=== PATIENT | female | born 1945 | race Caucasian/White ===

== ENCOUNTER 2016-10-15 17:13 | Emergency (ER) | payer MEDICARE, OTHER ==
[2016-10-15 17:42] VITALS: BP 120/60
--- NOTE | 2016-10-15 18:19 | EDM.PDOC ---
ED HPI LOWER BACK PAIN/INJURY - General Chief Complaint: Back Pain or Injury Stated Complaint: BACK PAIN Time Seen by Provider: 10/15/16 17:46 Source of Information: Reports: Patient, Family History Limitations: Reports: Other (under the influence of pain medications) - History of Present Illness INITIAL COMMENTS - FREE TEXT/NARRATIVE: 71 y/o female who presents to the [facility] complaining of lower back pain with radiation into the flanks and left hip. Patient is status post fusion of L4 and L5 October 02, 2016. She is currently wearing a lumbosacral brace. Today developed severe pain to the lower back to which radiated into her left and right/left flank. She does have some tenderness into her suprapubic region as well. She's been administered Tylenol and Tylenol #3 with no relief. She's also had some Percocet and baclofen prior to arrival as well. This did not help either. She resides at [facility] for therapy. She's been there for approximately 8 days and has been receiving OT and PT every day other than Sunday. This pain to her lower back has been present ever since surgery. She does state the discomfort waxes and wanes in intensity depending on the day. She denies any recent falls. She denies fever, chest pain, shortness of breath , diarrhea, dysuria, numbness/ tingling to lower extremities, incontinence urine stool, inability to weight-bear, or any additional complaints. Pain currently is moderate to severe. She has a history constipation but has been on Colace and MiraLax with no issues present. She is able to get up,weight-bear , and ambulate a few steps with assistance. Family states patient has been lying in bed more over the past few days. Past medical history atrial fibrillation chronic anticoagulated with warfarin, hypothyroidism, type 2 diabetes, restless leg syndrome, heart disease, GERD, COPD, hypertension, hypokalemia, insomnia Current medications: See List. Timing/Duration: Reports: Constant, Waxing/waning Location: Reports: lower Quality: Reports: Ache, Sharp, Throbbing Severity: severe Improves with: Reports: Rest Worsens with: Reports: Movement Context: Reports: other Associated Symptoms: Reports: Difficulty walking. 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) (See HPI) - Related Data Allergies/ADRs: Allergies Allergy/AdvReac Type Severity Reaction Status Date / Time metronidazole [From Flagyl] Allergy Cannot Verified 10/15/16 17:35 Remember promethazine HCl Allergy Cannot Verified 10/15/16 17:35 [From Phenergan] Remember cephalexin AdvReac Diarrhea Verified 10/15/16 17:35 hydrocodone AdvReac Nausea and Verified 10/15/16 17:35 Vomiting rosuvastatin calcium AdvReac Muscle Verified 10/15/16 17:35 [From Crestor] Aches tramadol AdvReac Drowsiness Verified 10/15/16 17:35 Home Meds: Home Meds Furosemide [Lasix] 40 mg PO DAILY 09/03/14 [History] Pantoprazole Sodium 40 mg PO DAILY 09/03/14 [History] Sertraline HCl 100 mg PO DAILY 09/03/14 [History] Pravastatin [Pravachol] 40 mg PO DAILY 03/07/15 [History] Carbidopa/Levodopa [Carbidopa-Levo 10-100 mg Odt] 1 tab PO BID 03/14/15 [History ] Acetaminophen [Tylenol Extra Strength] 1 tab PO DAILY PRN 05/23/16 [History] Albuterol [Proventil HFA] 1 puff INH BID 05/23/16 [History] Calcium Carbonate/Vitamin D3 [Calcium 600 + Vit D 400 Softgl] 1 cap PO DAILY [History] Carvedilol [Carvedilol] 1 tab PO BID 05/23/16 [History] Fluticasone Propionate [Flonase] 1 spray LIONEL DAILY 05/23/16 [History] Insulin Aspart [Novolog Flexpen] 1 dose SQ ASDIRECTED 05/23/16 [History] Isosorbide Mononitrate [Imdur] 1 tab PO DAILY 05/23/16 [History] Latanoprost [Latanoprost] 1 drop EYEBOTH BEDTIME 05/23/16 [History] Levothyroxine [Synthroid] 1 tab PO DAILY 05/23/16 [History] Warfarin [Coumadin] 1 tab PO ASDIRECTED 05/23/16 [History] Acetaminophen 1,000 mg PO BID 10/15/16 [History] Acetaminophen/oxyCODONE [Percocet 325-5 MG] 1 tab PO QID PRN 10/15/16 [History] Azithromycin [Zithromax] 250 mg PO DAILY 10/15/16 [History] Baclofen 10 mg PO TID PRN 10/15/16 [History] Cyanocobalamin (Vitamin B-12) [B-12] 1 tab PO DAILY 10/15/16 [History] Docusate Sodium [Colace] 1 cap PO BID 10/15/16 [History] Polyethylene Glycol 3350 [MiraLAX] 1 dose PO DAILY PRN 10/15/16 [History] Pramipexole [Mirapex] 0.25 mg PO BEDTIME 10/15/16 [History] Warfarin [Coumadin] 4 mg PO ASDIRECTED 10/15/16 [History] Past Medical History Cardiovascular History: Reports: Afib, CAD, Heart Failure, High cholesterol, Pacemaker, PTCA Other Cardiovascular History: Pace maker and 2 stents Respiratory History: Reports: Asthma, Sleep apnea Other Respiratory History: Wears C-pap at night Gastrointestinal History: Reports: GERD Other Gastrointestinal History: Patient has gallstones Other Musculoskeletal History: bulging disk Other Neuro History: restless leg syndrome Endocrine/Metabolic History: Reports: Diabetes, type II Other Dermatologic History: HX of yeast infections - Past Surgical History Cardiovascular Surgical History: Reports: Pacer GI Surgical History: Reports: Colonoscopy, EGD, Hernia repair/other, Ela fundoplication Musculoskeletal Surgical History: Reports: Other (see below) Other Musculoskeletal Surgeries/Procedures:: Pola to left femur from fracture in early 2014. Back Surgery for spinal stenosis on 10/02/16. Social & Family History - Tobacco Use Smoking Status *Q: Never Smoker Second Hand Smoke Exposure: No - Caffeine Use Caffeine Use: Reports: Coffee - Alcohol Use Days Per Week of Alcohol Use: 0 - Recreational Drug Use Recreational Drug Use: No - Living Situation & Occupation Living situation: Reports: Occupation: unemployed ED ROS GENERAL - Review of Systems Review Of Systems: See Below Constitutional: Reports: no symptoms Respiratory: Reports: No Symptoms Cardiovascular: Reports: No symptoms GI/Abdominal: Reports: Abdominal pain, Constipation. Denies: Bloody stool, Diarrhea, Decreased appetite, Hematemesis, Nausea, Vomiting : Reports: no symptoms Musculoskeletal: Reports: no symptoms Neurological: Reports: Difficulty Walking. Denies: Numbness, Pre-Existing Deficit, Tingling ED EXAM,LOWER BACK PAIN/INJURY - Physical Exam Exam: See Below Exam Limited By: Other General Appearance: alert, WD/WN, other (under the influence of narcotic medications) Eye Exam: bilateral eye: PERRL Ears: hearing grossly normal Nose: normal inspection Throat/Mouth: Normal inspection, Normal oropharynx, Normal voice, No airway compromise Head: atraumatic, normocephalic Neck: normal inspection, supple, non-tender, full range of motion Respiratory/Chest: no respiratory distress, lungs clear, normal breath sounds, no accessory muscle use, chest non-tender Cardiovascular: normal peripheral pulses, irregularly irregular GI/Abdominal: normal bowel sounds, soft, non tender, no organomegaly, no distention Back Exam: paraspinal tenderness, vertebral tenderness, other (lower back incision with no onesimo/sutures/steristrips present. no erythema, swelling, increased warmth, or drainage noted. incision is intact. ) Extremities: normal inspection, normal range of motion (2nd to back pain), normal capillary refill, limited range of motion, other (tenderness to the left hip) Neurological: alert, normal mood/affect, normal dorsiflexion, CN II-XII intact, normal plantar flexion, no motor/sensory deficits, oriented x 3, difficulty walking (needs assistance to ambulate. is able to weight beara and walk with assistance) Psychiatric: normal affect, normal mood Skin Exam: Warm, Dry, Intact, Normal color Course - Vital Signs Last Recorded V/S: Last Vital Signs Temp 98.1 F 10/15/16 17:35 Pulse 70 10/15/16 17:35 Resp 16 10/15/16 17:35 BP 120/60 10/15/16 17:35 Pulse Ox 92 L 10/15/16 17:35 - Orders/Labs/Meds Labs: Laboratory Tests 10/15/16 Range/Units 20:00 Urine Color Light yellow (Yellow) Urine Appearance Clear (Clear) Urine pH 6.5 (5.0-8.0) Ur Specific [place] 1.010 (1.005-1.030) Urine Protein Negative (Negative) Urine Glucose (UA) Negative (Negative) Urine Ketones Negative (Negative) Urine Occult Blood Negative (Negative) Urine Nitrite Negative (Negative) Urine Bilirubin Negative (Negative) Urine Urobilinogen 0.2 (0.2-1.0) Ur Leukocyte Esterase Negative (Negative) Urine RBC Not seen (0-5) /hpf Urine WBC 0-5 (0-5) /hpf Ur Epithelial Cells Not Reportable Ur Squamous Epith Cells 10-20 H (0-5) /hpf Urine Bacteria Not seen (FEW) /hpf Urine Mucus Not seen (FEW) /hpf - Re-Assessments/Exams Free Text/Narrative Re-Assessment/Exam: 10/15/16 18:17 Ordered x-ray of the left hip and and will obtain a UA. X-ray of the left hip did not reveal any acute bony abnormalities. Surgical hardware within the femur/hip present. Patient was able to get up to the commode and back to bed with assistance with minimal difficulties. 10/15/16 20:19 UA results were delayed since the urine was not sent. Results are pending. UA was negative. Reassessment, patient sitting up in the wheelchair much more alert stating pain is minimal at this time. I do believe patient was overmedicated with pain medications and muscle relaxers causing her to be more sedated and lay in bed more than she should during the day. I reiterated with the family and patient that she needs to get up and move as much as possible to increase her strength. I stated the more she lays in bed longer her rehabilitation will take. Patient in the family are aware of this and understand and agree with plan. Will discharge patient home with instructions as documented. Departure - Departure Time of Disposition: 23:14 Disposition: Home, Self-Care 01 Clinical Impression: Previous back surgery, Back pain with left-sided radiculopathy Instructions: Back Pain, Adult, [id number], Pain Medicine Instructions, Easy- to-Read Referrals: Donnie Isbell MD [Primary Care Provider] - Forms: ED Department Discharge Additional Instructions: As discussed x-ray of the left hip was negative for acute bony abnormalities. UA was negative. Pain referred to hip and left abdomen is referred pain from her back. Their was no pain of her abdomen with palpation. Incision site from back surgery looks really good with no concerns for infection. Patient presented to the E.D. with narcotic medications on board. Thus no additional pain medications were given. In addition she with assistance did move exceptionally well. Patient has to get up and walk multiple times throughout the course of the day. You cannot stay in bed and rest. Please continue with OT /PT. See your PCP this coming week for reevaluation as needed. If pain to back persist or worsens suggest seeing your neurosurgeon. Return to the E.D. for any new or worsening symptoms.
--- NOTE | 2016-10-16 08:21 | CR ---
Left hip: AP and frog-leg lateral views of the left hip were obtained. Comparison: Previous left hip study of 06/12/14. Intramedullary deonte is seen. Fixation pin noted proximally. Findings affix previous intertrochanteric fracture. Bony structures are osteopenic. Fracture appears to be healed. Nothing acute is identified. Vascular calcification is seen. Impression: 1. Old intertrochanteric fracture which appears healed. Orthopedic hardware in place. 2. Nothing acute is identified. Diagnostic code #2
== END 2016-10-15 20:40 | disposition home or self-care (01) ==
LOC: JD.ED 17:13
DX: M54.16 Radiculopathy, lumbar region (principal); I48.91 Unspecified atrial fibrillation; I25.10 Atherosclerotic heart disease of native coronary artery without angina pectoris; E78.00 Pure hypercholesterolemia, unspecified; I50.9 Heart failure, unspecified; J45.909 Unspecified asthma, uncomplicated; K21.9 Gastro-esophageal reflux disease without esophagitis; E11.9 Type 2 diabetes mellitus without complications; Z88.8 Allergy status to other drugs, medicaments and biological substances; Z88.1 Allergy status to other antibiotic agents; Z88.5 Allergy status to narcotic agent; Z79.4 Long term (current) use of insulin; Z79.01 Long term (current) use of anticoagulants; Z79.899 Other long term (current) drug therapy
CPT/HCPCS: 73502-26-LT; 73502-LT; 81001; 99282; 99284

== ENCOUNTER 2016-11-28 11:13 | Emergency (ER) | payer MEDICARE, OTHER, MEDICAID ==
--- NOTE | 2016-11-28 11:50 | EDM.PDOC ---
ED HPI GENERAL MEDICAL PROBLEM - General Chief Complaint: Wound Recheck Stated Complaint: [facility] Time Seen by Provider: 11/28/16 11:23 Source of Information: Reports: Patient, [facility] Records History Limitations: Reports: No Limitations - History of Present Illness INITIAL COMMENTS - FREE TEXT/NARRATIVE: 71 year old female presents via [facility] for evaluation of surgical incision to the back. Patient is a poor historian. Reportedly she's had 4 recent back surgeries. Most recent surgery was about 3 weeks ago in [place]. She does not know when she is supposed to followup with her surgeon. She does not know when she spoke to her sutures out. She does not know exactly what was done to her back. She was on Bactrim which she ended yesterday per [facility] report. She is currently on Cipro which started today. penitentiary records show a recent culture of the wound which contained Proteus species susceptible to both Bactrim and ciprofloxacin. Patient denies any fevers or any vomiting. She is complaining of pain to the low back and nausea. Patient is currently residing at [facility] while she recovers from her surgeries. She is a abbie lift due to her recent surgeries. She has been utilizing a back brace. 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: wears back brace Back Pain Score (Numeric/FACES): 0 - Related Data Allergies Allergy/AdvReac Type Severity Reaction Status Date / Time metronidazole [From Flagyl] Allergy Cannot Verified 10/15/16 17:35 Remember promethazine HCl Allergy Cannot Verified 10/15/16 17:35 [From Phenergan] Remember cephalexin AdvReac Diarrhea Verified 10/15/16 17:35 hydrocodone AdvReac Nausea and Verified 10/15/16 17:35 Vomiting rosuvastatin calcium AdvReac Muscle Verified 10/15/16 17:35 [From Crestor] Aches tramadol AdvReac Drowsiness Verified 10/15/16 17:35 Home Meds: Home Meds Furosemide [Lasix] 40 mg PO DAILY 09/03/14 [History] Pantoprazole Sodium 40 mg PO DAILY 09/03/14 [History] Sertraline HCl 100 mg PO DAILY 09/03/14 [History] Pravastatin [Pravachol] 40 mg PO DAILY 03/07/15 [History] Carbidopa/Levodopa [Carbidopa-Levo 10-100 mg Odt] 1 tab PO BID 03/14/15 [History ] Acetaminophen [Tylenol Extra Strength] 1 tab PO DAILY PRN 05/23/16 [History] Albuterol [Proventil HFA] 1 puff INH BID 05/23/16 [History] Calcium Carbonate/Vitamin D3 [Calcium 600 + Vit D 400 Softgl] 1 cap PO DAILY [History] Carvedilol [Carvedilol] 1 tab PO BID 05/23/16 [History] Fluticasone Propionate [Flonase] 1 spray LIONEL DAILY 05/23/16 [History] Insulin Aspart [Novolog Flexpen] 1 dose SQ ASDIRECTED 05/23/16 [History] Isosorbide Mononitrate [Imdur] 1 tab PO DAILY 05/23/16 [History] Latanoprost [Latanoprost] 1 drop EYEBOTH BEDTIME 05/23/16 [History] Levothyroxine [Synthroid] 1 tab PO DAILY 05/23/16 [History] Warfarin [Coumadin] 1 tab PO ASDIRECTED 05/23/16 [History] Acetaminophen 1,000 mg PO BID 10/15/16 [History] Acetaminophen/oxyCODONE [Percocet 325-5 MG] 1 tab PO QID PRN 10/15/16 [History] Azithromycin [Zithromax] 250 mg PO DAILY 10/15/16 [History] Baclofen 10 mg PO TID PRN 10/15/16 [History] Cyanocobalamin (Vitamin B-12) [B-12] 1 tab PO DAILY 10/15/16 [History] Docusate Sodium [Colace] 1 cap PO BID 10/15/16 [History] Polyethylene Glycol 3350 [MiraLAX] 1 dose PO DAILY PRN 10/15/16 [History] Pramipexole [Mirapex] 0.25 mg PO BEDTIME 10/15/16 [History] Warfarin [Coumadin] 4 mg PO ASDIRECTED 10/15/16 [History] Past Medical History Cardiovascular History: Reports: Afib, CAD, Heart Failure, High Cholesterol, Pacemaker, PTCA Other Cardiovascular History: Pace maker and 2 stents Respiratory History: Reports: Asthma, Sleep Apnea Other Respiratory History: Wears C-pap at night Gastrointestinal History: Reports: GERD Other Gastrointestinal History: Patient has gallstones Other Musculoskeletal History: bulging disk Other Neuro History: restless leg syndrome Endocrine/Metabolic History: Reports: Diabetes, Type II Other Dermatologic History: HX of yeast infections - Past Surgical History GI Surgical History: Reports: Colonoscopy, EGD, Hernia Repair/Other, Ela Fundoplication Musculoskeletal Surgical History: Reports: Other (See Below) Other Musculoskeletal Surgeries/Procedures:: revised lumbar surgery in November 2016 in [place] Social & Family History - Tobacco Use Smoking Status *Q: Never Smoker Second Hand Smoke Exposure: No - Caffeine Use Caffeine Use: Reports: Coffee, Soda - Alcohol Use Days Per Week of Alcohol Use: 0 - Recreational Drug Use Recreational Drug Use: No - Living Situation & Occupation Living situation: Reports: Occupation: Unemployed ED ROS GENERAL - Review of Systems Review Of Systems: See Below Constitutional: Denies: Fever GI/Abdominal: Reports: Nausea. Denies: Vomiting Musculoskeletal: Reports: Back Pain Skin: Reports: Erythema, Wound ED EXAM, SKIN/RASH Exam: See Below Exam Limited By: No Limitations General Appearance: Alert, WD/WN, No Apparent Distress Respiratory/Chest: No Respiratory Distress, Lungs Clear, Normal Breath Sounds Cardiovascular: Normal Peripheral Pulses, Regular Rate, Rhythm, No Murmur Neurological: Alert, Oriented, Normal Cognition Psychiatric: Normal Affect, Normal Mood Skin: Warm, Dry, Wound/Incision (approximately 15 cm healing wound from back surgery; superior portion has a 2cm in length open dehisisng area and inferior lower portion an 8cm open dehissing area; no pus present, tissue present, minimal surrounding erythema) Location, Skin: Back Associated features: Tenderness (nacrotic tissue at the areas of dehissens). No : Warmth, Wwelling, Induration Course - Vital Signs Last Recorded V/S: Last Vital Signs Temp 36.0 C 11/28/16 11:33 Pulse 70 11/28/16 14:00 Resp 15 11/28/16 14:00 BP 103/48 L 11/28/16 14:00 Pulse Ox 92 L 11/28/16 14:00 - Re-Assessments/Exams Free Text/Narrative Re-Assessment/Exam: 11/28/16 11:40 Dr. Paz examined patient. We both feel at this point the wound is not infected but is dehissing and has associated necrotic tissue. Dr. Paz recommends continuing current antibioics, removing sutures and applying steri strips. 11/28/16 13:01 Sutures removed, 2 continues sutures. Patient tolerated well. Steri strips and masitol applied to the area. Covered with non stick and bandage. Discharge instructions as documented. Departure - Departure Time of Disposition: 12:50 Disposition: Home, Self-Care 01 Condition: fair Clinical Impression: Wound dehiscence - Discharge Information Instructions: Incision Care, [id number] Referrals: Donnie Isbell MD [Primary Care Provider] - Forms: ED Department Discharge Additional Instructions: continue on antibiotics as prescribed. follow-up with PCP tomorrow as planned. Keep wound clean and dry. Antibacterial ointment daily. Please return to the ER should your symptoms change or worsen.
[2016-11-28 14:39] VITALS: BP 103/48
== END 2016-11-28 14:21 | disposition home or self-care (01) ==
LOC: SUPCPDRO 11:13 → JD.ED 11:13
DX: T81.31XA Disruption of external operation (surgical) wound, not elsewhere classified, initial encounter (principal); Z98.890 Other specified postprocedural states; I25.10 Atherosclerotic heart disease of native coronary artery without angina pectoris; I50.9 Heart failure, unspecified; I48.91 Unspecified atrial fibrillation; J45.909 Unspecified asthma, uncomplicated; G47.30 Sleep apnea, unspecified; E78.00 Pure hypercholesterolemia, unspecified; Z88.8 Allergy status to other drugs, medicaments and biological substances; K21.9 Gastro-esophageal reflux disease without esophagitis; E11.9 Type 2 diabetes mellitus without complications; Z79.4 Long term (current) use of insulin; Z79.2 Long term (current) use of antibiotics; Z79.899 Other long term (current) drug therapy; Z88.5 Allergy status to narcotic agent; Z79.01 Long term (current) use of anticoagulants
CPT/HCPCS: 99283; 99284

== ENCOUNTER 2017-01-22 08:44 | Day surgery (SDC) | payer MEDICARE, OTHER, MEDICAID ==
[~2017-01-22 08:44] MED LIST: Lactated Ringers 1,000 ML IV SCH; Lidocaine 1%/Sod Bicarbonate in NS 8.4% 1 ML Syringe IV PRN; Sodium Chloride 0.9% 10 ML Syringe FLUSH PRN
--- NOTE | 2017-01-22 08:48 | PCM.PREANE ---
Preanesthetic Assessment - Anesthesia/Transfusion/Family Hx Anesthesia History: Prior Anesthesia Without Reaction Type of Anesthesia Reaction: Excessive Somnolence (hard to wake up with most recent back surgery October 2016.), Excessive Nausea/Vomiting Other Type of Anesthesia Reaction Comment: nausea Family History of Anesthesia Reaction: No Transfusion History: No Prior Transfusion(s) Intubation History: Unknown - Review of Systems General: No Symptoms Pulmonary: No Symptoms (KATINA with CPAP/BiPAP worn at night, COPD) Cardiovascular: No Symptoms (Atrial fib, cardiomegaly,CAD, 2014 cardiac stent placement, Left sided heart failure/ Pacemaker), Edema (pedal edema noted..) Gastrointestinal: No Symptoms (GERD), Decreased Appetite, Difficulty Swallowing Neurological: No Symptoms Other: Reports: None (History of Parkinson's), Diabetes (AM BS=), Thyroid Problems (hypothyroid), Sinus Problem (chronic rhinitis), Depression, Anxiety - Physical Assessment NPO Status Date: 01/22/17 NPO Status Time: 00:00 Pulse: 70 O2 Sat by Pulse Oximetry: 94 Respiratory Rate: 16 Blood Pressure: 107/76 Temperature: 36.1 C Vital Signs: Last Vital Signs Temp 36.1 C 01/22/17 08:00 Pulse 70 01/22/17 08:00 Resp 17 01/22/17 08:00 BP 107/76 01/22/17 08:00 Pulse Ox 94 L 01/22/17 08:00 Height: 1.52 m Weight: 77.564 kg ASA Class: 3 Mental Status: Alert & Oriented x3 Airway Class: Mallampati = 2 Dentition: Reports: Missing Tooth/Teeth, Caries Thyro-Mental Finger Breadths: 3 Mouth Opening Finger Breadths: 3 ROM/Head Extension: Full Lungs: Clear to Auscultation, Normal Respiratory Effort Cardiovascular: Regular Rate, Regular Rhythm, No Murmurs - Imaging/EKG Impressions: 2016: unremarkable stress test noted. EKG: Paced rhythm EF=70% - Allergies Allergies/Adverse Reactions: Allergies Allergy/AdvReac Type Severity Reaction Status Date / Time metronidazole [From Flagyl] Allergy Cannot Verified 01/22/17 08:36 Remember promethazine HCl Allergy Cannot Verified 01/22/17 08:36 [From Phenergan] Remember cephalexin AdvReac Diarrhea Verified 01/22/17 08:36 hydrocodone AdvReac Nausea and Verified 01/22/17 08:36 Vomiting rosuvastatin calcium AdvReac Muscle Verified 01/22/17 08:36 [From Crestor] Aches tramadol AdvReac Drowsiness Verified 01/22/17 08:36 - Anesthesia Plan Pre-Op Medication Ordered: Beta Simon Beta Simon: Carvedilol Med Last Dose Date: 01/21/17 Med Last Dose Time: 17:00 - Acknowledgements Anesthesia Type Planned: MAC Pt an Appropriate Candidate for the Planned Anesthesia: Yes Alternatives and Risks of Anesthesia Discussed w Pt/Guardian: Yes Pt/Guardian Understands and Agrees with Anesthesia Plan: Yes PreAnesthesia Questionnaire HEENT History: Reports: Allergic Rhinitis, Glaucoma, Impaired Vision Cardiovascular History: Reports: Afib, CAD, Heart Failure, High Cholesterol, Pacemaker, PTCA, Stents Other Cardiovascular History: Pace maker and 2 stents Respiratory History: Reports: Asthma, COPD, Sleep Apnea Other Respiratory History: Wears C-pap at night Gastrointestinal History: Reports: Chronic Constipation, GERD Other Gastrointestinal History: Patient has gallstones, Dysphagia, gastirc ulcer with hemorrhage Genitourinary History: Reports: None 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 Musculoskeletal History: Reports: Osteoporosis Other Musculoskeletal History: spine fusion, compression fracture, post laminectomy syndrome, R hip bursitis, low back pain, restless leg sydrome, muscle weakness Neurological History: Reports: Parkinson's Other Neuro History: restless leg syndrome, spinal fusion, parkinsons disease, spinal stenosis Psychiatric History: Reports: Depression, Other (See Below) Other Psychiatric History: cognitive communication deficit, insomnia Endocrine/Metabolic History: Reports: Diabetes, Type II, Hypothyroidism Hematologic History: Reports: Other (See Below) Other Hematologic History: hypokalemia Immunologic History: Reports: None Oncologic (Cancer) History: Reports: None Other Dermatologic History: HX of yeast infections - Past Surgical History Cardiovascular Surgical History: Reports: Pacer GI Surgical History: Reports: Colonoscopy, EGD, Hernia Repair/Other, Ela Fundoplication Female Surgical History: Reports: None Musculoskeletal Surgical History: Reports: Other (See Below) Other Musculoskeletal Surgeries/Procedures:: revised lumbar surgery in November 2016 in [place] - SUBSTANCE USE Smoking Status *Q: Never Smoker Tobacco Use Within Last Twelve Months: No Second Hand Smoke Exposure: No Days Per Week of Alcohol Use: 0 Recreational Drug Use History: No - HOME MEDS Home Medications: Home Meds Furosemide [Lasix] 40 mg PO DAILY 03/12/15 [History] Pantoprazole Sodium 40 mg PO DAILY 09/03/14 [History] Sertraline HCl 100 mg PO BEDTIME 09/03/14 [History] Pravastatin [Pravachol] 40 mg PO DAILY 03/07/15 [History] Carbidopa/Levodopa [Carbidopa-Levo 10-100 mg Odt] 1 tab PO BID 03/14/15 [History ] Calcium Carbonate/Vitamin D3 [Calcium 600 + Vit D 400 Softgl] 1 cap PO DAILY [History] Carvedilol [Carvedilol] 3.125 mg PO BID 05/23/16 [History] Isosorbide Mononitrate [Imdur] 30 mg PO DAILY 05/23/16 [History] Levothyroxine [Synthroid] 50 mcg PO DAILY 05/23/16 [History] Baclofen 10 mg PO TID PRN 10/15/16 [History] Cyanocobalamin (Vitamin B-12) [B-12] 1 tab PO DAILY 10/15/16 [History] Docusate Sodium [Colace] 1 cap PO BID 10/15/16 [History] Polyethylene Glycol 3350 [MiraLAX] 1 dose PO DAILY 10/15/16 [History] Pramipexole [Mirapex] 0.25 mg PO BEDTIME 10/15/16 [History] Acetaminophen [Tylenol] 650 mg PO Q4H PRN 01/12/17 [History] Acetaminophen [Tylenol] 650 mg PO TID 01/12/17 [History] Albuterol Sulfate [Proair Hfa] 1 puff INH BID 01/12/17 [History] Alum Hydrox/Mag Hydrox/Simeth [Mag-Al Plus] 30 ml PO BID PRN 01/12/17 [History] Bisacodyl [Dulcolax] 10 mg RECTAL DAILY PRN 01/12/17 [History] Cyclobenzaprine [Flexeril] 5 mg PO TID 01/12/17 [History] Magnesium Hydroxide [Milk of Magnesia] 30 ml PO DAILY PRN 01/12/17 [History] Mirtazapine [Remeron] 7.5 mg PO DAILY 01/12/17 [History] Ondansetron HCl [Zofran] 8 mg PO TID PRN 01/12/17 [History] Warfarin Sodium [Coumadin] 3.75 mg PO ONETIME 01/12/17 [History] Warfarin [Coumadin] 1.25 mg PO MOFR 01/12/17 [History] Warfarin [Coumadin] 2.5 mg PO SUTUWETHSA 01/12/17 [History] fentaNYL [Fentanyl] 75 mcg TOP Q72H 01/12/17 [History] oxyCODONE HCl [Roxicodone] 5 mg PO Q4H PRN 01/12/17 [History] oxyCODONE HCl [Roxicodone] 10 mg PO Q4H PRN 01/12/17 [History] - CURRENT (IN HOUSE) MEDS Current Meds: Current Medications Lactated Ringer's (Ringers, Lactated) 1,000 mls @ 125 mls/hr IV ASDIRECTED JOSE LUIS Stop: 01/22/17 23:00 Lidocaine/Sodium Bicarbonate (Buffered Lidocaine 1% In Ns 8.4%) 0.25 ml IV ONETIME PRN PRN Reason: Prior to IV Start Stop: 01/22/17 18:00 Last Admin: 01/22/17 08:14 Dose: 0.25 ml Sodium Chloride (Saline Flush) 10 ml FLUSH ASDIRECTED PRN PRN Reason: Keep Vein Open Stop: 01/22/17 18:00
[2017-01-22] MEDS ORDERED: Propofol 200 MG/20 ML SDV ONE (09:35)
[2017-01-22] MEDS ORDERED: fentaNYL 100 MCG/2 ML SDV ONE (09:35)
--- NOTE | 2017-01-22 09:52 | PCM48HPAN ---
Post Anesthesia Note - EVALUATION WITHIN 48HRS OF ANESTHETIC Vital Signs in Normal Range: Yes Patient Participated in Evaluation: Yes Respiratory Function Stable: Yes Airway Patent: Yes Cardiovascular Function Stable: Yes Hydration Status Stable: Yes Pain Control Satisfactory: Yes Nausea and Vomiting Control Satisfactory: Yes Mental Status Recovered: Yes
[2017-01-22] MEDS ORDERED: Ondansetron 4 MG/2 ML SDV ONE (10:07)
[2017-01-22 10:11] VITALS: BP 119/60
--- NOTE | 2017-01-22 12:05 | OR ---
DATE OF OPERATION: 01/22/2017 SURGEON: Perry Phipps MD PREOPERATIVE DIAGNOSIS: Dysphagia. POSTOPERATIVE DIAGNOSIS: Dysphagia. OPERATION PERFORMED: Esophagogastroduodenoscopy with balloon dilatation of the distal esophagus to 45-Somali. ANESTHESIA: Done under IV sedation. FINDINGS: A small hiatal hernia. GE junction located at about 38 cm. Second portion of the duodenum, duodenal bulb, pyloric channel, antrum, body, cardia of the stomach, fundus, and balance of the esophagus, and the GE junction were free of any acute disease. Did not appreciate any obstructive pathology in the distal esophagus. I did notice that the contraction of the esophagus were decreased suggesting a functional problem, perhaps with fentanyl. DESCRIPTION OF PROCEDURE: The patient was taken to the operating room, placed in a supine position, connected to monitoring equipment, given IV sedation, placed in the left lateral position, and bite block was inserted. Video Olympus gastroscope was placed in the posterior oropharynx under direct vision, threaded past the cricopharyngeus, down the esophagus, and into the stomach. The stomach was insufflated, and the scope passed through the pylorus to the second portion of the duodenum. It was slowly withdrawn showing normal second portion of the duodenum, duodenal bulb, pyloric channel, antrum, body and cardia of the stomach were noted. J-maneuver was showing hiatal hernia. Scope was withdrawn at the GE junction, which was unremarkable. A balloon dilator was then inserted and dilated up to 45-Somali. The scope was slowly withdrawn showing normal esophagus. The patient tolerated the procedure, was sent to recovery room in a stable condition, and will be followed up with Dr. Isbell. ESTIMATED BLOOD LOSS: MMODAL /[id number]
== END 2017-01-22 11:15 | disposition home or self-care (01) ==
LOC: JD.SDS 08:44
PROVIDERS: ATTEND Surgery
PROC: 0D738ZZ Dilation of Lower Esophagus, Via Natural or Artificial Opening Endoscopic (ICD-10-PCS; principal; 2017-01-22)
DX: K44.9 Diaphragmatic hernia without obstruction or gangrene (principal); R13.10 Dysphagia, unspecified; I25.10 Atherosclerotic heart disease of native coronary artery without angina pectoris; I48.91 Unspecified atrial fibrillation; I50.9 Heart failure, unspecified; I25.9 Chronic ischemic heart disease, unspecified; K21.9 Gastro-esophageal reflux disease without esophagitis; J31.0 Chronic rhinitis; E03.9 Hypothyroidism, unspecified; E78.2 Mixed hyperlipidemia; E11.9 Type 2 diabetes mellitus without complications; G47.33 Obstructive sleep apnea (adult) (pediatric); J44.9 Chronic obstructive pulmonary disease, unspecified; M81.0 Age-related osteoporosis without current pathological fracture; G25.81 Restless legs syndrome; F32.9 Major depressive disorder, single episode, unspecified; E78.00 Pure hypercholesterolemia, unspecified; G20 Parkinson's disease; Z98.1 Arthrodesis status; Z95.0 Presence of cardiac pacemaker; Z95.5 Presence of coronary angioplasty implant and graft; Z98.890 Other specified postprocedural states; Z79.899 Other long term (current) drug therapy; Z79.4 Long term (current) use of insulin; Z79.01 Long term (current) use of anticoagulants; Z99.89 Dependence on other enabling machines and devices; Z88.1 Allergy status to other antibiotic agents; Z88.5 Allergy status to narcotic agent; Z88.8 Allergy status to other drugs, medicaments and biological substances
CPT/HCPCS: 36415; 43249; 82962; 85610; J2405; J3010; J7120; J2704

== ENCOUNTER 2017-02-14 10:19 | Emergency (ER) | payer MEDICARE, OTHER, MEDICAID ==
--- NOTE | 2017-02-14 11:33 | EDM.PDOC ---
ED HPI GENERAL MEDICAL PROBLEM - General Chief Complaint: Back Pain or Injury Stated Complaint: BACK PAIN Time Seen by Provider: 02/14/17 11:20 Source of Information: Reports: Patient History Limitations: Reports: No Limitations - History of Present Illness INITIAL COMMENTS - FREE TEXT/NARRATIVE: Patient is a 71-year-old female who presents to the ED complaining of bilateral low back discomfort. Patient states this started yesterday and has progressively gotten worse over the course of the past 24 hours. Pain is located in the low back described as sharp constitent pain that waxes and wane intensity. Pain radiates from the lumbar spine outward. Denies any pain radiating down her lower legs. States the pain is consistent with previous back discomfort post surgery. Patient's had multiple back surgeries to her lower back. Last Surgery took place November 2016 at the [facility]. Patient's had a history of extensive surgery to her lumbar spine including cage placement and rods to stabilize the vertebral column. She initially had surgery in [place] but due to complications had to be referred to [facility] for treatment. The patient and are concerned that the cage may have been dislodged causing this discomfort. The neurosurgeons that have conducted surgeries on the patient noted her bones are very weak and is very prone to further complications. Patient has been residing at a local assisted receiving physical therapy and pain control. Pain medications were administered prior to transporting the patient to the ED. Pain is controlled with lying still worsed with movement. Patient normally ambulates on her own accord with a walker not requiring assistance, but as of recent sitting up, transferring from the bed, and or walking with assistance is difficult, She denies N/T, saddle anesthesia, incontinence to urine or stool, sciatica, dysuria, abdominal pain, chest pain, shortness of breath, dizziness, nausea/vomiting, or any additional complaints. Lower Back Pain Score (Numeric/FACES): 10 - Related Data Allergies Allergy/AdvReac Type Severity Reaction Status Date / Time metronidazole [From Flagyl] Allergy Cannot Verified 02/14/17 10:28 Remember promethazine HCl Allergy Cannot Verified 02/14/17 10:28 [From Phenergan] Remember cephalexin AdvReac Diarrhea Verified 02/14/17 10:28 hydrocodone AdvReac Nausea and Verified 02/14/17 10:28 Vomiting rosuvastatin calcium AdvReac Muscle Verified 02/14/17 10:28 [From Crestor] Aches tramadol AdvReac Drowsiness Verified 02/14/17 10:28 Home Meds: Home Meds Furosemide [Lasix] 40 mg PO DAILY 09/03/14 [History] Pantoprazole Sodium 40 mg PO DAILY 09/03/14 [History] Sertraline HCl 100 mg PO BEDTIME 09/03/14 [History] Pravastatin [Pravachol] 40 mg PO DAILY 03/07/15 [History] Carbidopa/Levodopa [Carbidopa-Levo 10-100 mg Odt] 1 tab PO BID 03/14/15 [History ] Calcium Carbonate/Vitamin D3 [Calcium 600 + Vit D 400 Softgl] 1 cap PO DAILY [History] Carvedilol [Carvedilol] 3.125 mg PO BID 05/23/16 [History] Isosorbide Mononitrate [Imdur] 30 mg PO DAILY 05/23/16 [History] Levothyroxine [Synthroid] 50 mcg PO DAILY 05/23/16 [History] Baclofen 10 mg PO TID PRN 10/15/16 [History] Cyanocobalamin (Vitamin B-12) [B-12] 1 tab PO DAILY 10/15/16 [History] Docusate Sodium [Colace] 1 cap PO BID 10/15/16 [History] Polyethylene Glycol 3350 [MiraLAX] 1 dose PO DAILY 10/15/16 [History] Pramipexole [Mirapex] 0.25 mg PO BEDTIME 10/15/16 [History] Acetaminophen [Tylenol] 650 mg PO Q4H PRN 01/12/17 [History] Acetaminophen [Tylenol] 650 mg PO TID 01/12/17 [History] Albuterol Sulfate [Proair Hfa] 1 puff INH BID 01/12/17 [History] Alum Hydrox/Mag Hydrox/Simeth [Mag-Al Plus] 30 ml PO BID PRN 01/12/17 [History] Bisacodyl [Dulcolax] 10 mg RECTAL DAILY PRN 01/12/17 [History] Cyclobenzaprine [Flexeril] 5 mg PO TID 01/12/17 [History] Magnesium Hydroxide [Milk of Magnesia] 30 ml PO DAILY PRN 01/12/17 [History] Mirtazapine [Remeron] 7.5 mg PO DAILY 01/12/17 [History] Ondansetron HCl [Zofran] 8 mg PO TID PRN 01/12/17 [History] Warfarin Sodium [Coumadin] 3.75 mg PO ONETIME 01/12/17 [History] Warfarin [Coumadin] 1.25 mg PO MOFR 01/12/17 [History] Warfarin [Coumadin] 2.5 mg PO SUTUWETHSA 01/12/17 [History] fentaNYL [Fentanyl] 75 mcg TOP Q72H 01/12/17 [History] oxyCODONE HCl [Roxicodone] 5 mg PO Q4H PRN 01/12/17 [History] oxyCODONE HCl [Roxicodone] 10 mg PO Q4H PRN 01/12/17 [History] Past Medical History HEENT History: Reports: Allergic Rhinitis, Glaucoma, Impaired Vision Cardiovascular History: Reports: Afib, CAD, Heart Failure, High Cholesterol, Pacemaker, PTCA, Stents Other Cardiovascular History: Pace maker and 2 stents Respiratory History: Reports: Asthma, COPD, Sleep Apnea Other Respiratory History: Wears C-pap at night Gastrointestinal History: Reports: Chronic Constipation, GERD Other Gastrointestinal History: Patient has gallstones, Dysphagia, gastirc ulcer with hemorrhage Genitourinary History: Reports: None 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 Musculoskeletal History: Reports: Osteoporosis Other Musculoskeletal History: spine fusion, compression fracture, post laminectomy syndrome, R hip bursitis, low back pain, restless leg sydrome, muscle weakness Neurological History: Reports: Parkinson's Other Neuro History: restless leg syndrome, spinal fusion, parkinsons disease, spinal stenosis Psychiatric History: Reports: Depression, Other (See Below) Other Psychiatric History: cognitive communication deficit, insomnia Endocrine/Metabolic History: Reports: Diabetes, Type II, Hypothyroidism Hematologic History: Reports: Other (See Below) Other Hematologic History: hypokalemia Immunologic History: Reports: None Oncologic (Cancer) History: Reports: None Other Dermatologic History: HX of yeast infections - Infectious Disease History Infectious Disease History: Reports: Chicken Pox, Measles, Mumps - Past Surgical History Cardiovascular Surgical History: Reports: Pacer GI Surgical History: Reports: Colonoscopy, EGD, Hernia Repair/Other, Ela Fundoplication Female Surgical History: Reports: None Musculoskeletal Surgical History: Reports: Other (See Below) Other Musculoskeletal Surgeries/Procedures:: revised lumbar surgery in November 2016 in [place] Social & Family History - Tobacco Use Smoking Status *Q: Never Smoker Second Hand Smoke Exposure: No - Caffeine Use Caffeine Use: Reports: None - Alcohol Use Days Per Week of Alcohol Use: 0 - Recreational Drug Use Recreational Drug Use: No - Living Situation & Occupation Living situation: Reports: Occupation: Unemployed ED ROS GENERAL - Review of Systems Review Of Systems: ROS reveals no pertinent complaints other than HPI. ED EXAM,LOWER BACK PAIN/INJURY - Physical Exam Exam: See Below Exam Limited By: No Limitations General Appearance: Alert, WD/WN, No Apparent Distress (while laying down on her back.) Eye Exam: Bilateral Eye: Normal Inspection Ears: Hearing Grossly Normal Nose: Normal Inspection Throat/Mouth: Normal Voice, No Airway Compromise Neck: Normal Inspection, Supple Respiratory/Chest: No Respiratory Distress, Lungs Clear, Normal Breath Sounds, No Accessory Muscle Use, Chest Non-Tender Cardiovascular: Normal Peripheral Pulses, Regular Rate, Rhythm GI/Abdominal: Normal Bowel Sounds, Soft, Non-Tender Back Exam: Vertebral Tenderness (Lumbar spine L1-L5), Other (old surgical incisions present along lumbar spine. ) Extremities: Normal Inspection, Non-Tender, No Pedal Edema, Normal Capillary Refill, Limited Range of Motion (2nd to low back pain) Neurological: Alert, Normal Mood/Affect, Normal Dorsiflexion, CN II-XII Intact, Normal Plantar Flexion, No Motor/Sensory Deficits, Oriented x 3 Psychiatric: Normal Affect, Normal Mood Skin Exam: Warm, Dry, Intact, Normal Color Course - Vital Signs Last Recorded V/S: Last Vital Signs Temp 96.6 F 02/14/17 16:25 Pulse 66 02/14/17 16:25 Resp 20 02/14/17 16:25 BP 103/48 L 02/14/17 16:25 Pulse Ox 91 L 02/14/17 16:25 - Orders/Labs/Meds Labs: Laboratory Tests 02/14/17 02/14/17 02/14/17 Range/Units 12:00 12:00 12:00 WBC 4.89 (3.98-10.04) K/mm3 RBC 3.93 L (3.98-5.22) M/mm3 Hgb 12.0 (11.2-15.7) gm/L Hct 38.2 (34.1-44.9) % MCV 97.2 H (79.4-94.8) fl MCH 30.5 (25.6-32.2) pg MCHC 31.4 L (32.2-35.5) g/dl RDW Std Deviation 57.1 H (36.4-46.3) fL Plt Count 258 (182-369) K/mm3 MPV 9.5 (9.4-12.3) fl Neut % (Auto) 71.2 H (34.0-71.1) % Lymph % (Auto) 19.2 L (19.3-51.7) % Cass % (Auto) 8.2 (4.7-12.5) % Eos % (Auto) 0.6 L (0.7-5.8) Baso % (Auto) 0.6 (0.1-1.2) % Neut # (Auto) 3.48 (1.56-6.13) K/mm3 Lymph # (Auto) 0.94 L (1.18-3.74) K/mm3 Cass # (Auto) 0.40 H (0.24-0.36) K/mm3 Eos # (Auto) 0.03 L (0.04-0.36) K/mm3 Baso # (Auto) 0.03 (0.01-0.08) K/mm3 PT 21.3 H (8.0-13.0) SECONDS INR 1.88 Sodium 142 (136-145) mEq/L Potassium 3.9 (3.5-5.1) mEq/L Chloride 103 (98-107) mEq/L Carbon Dioxide 32 (21-32) mEq/L Anion Gap 10.9 (5-15) BUN 11 (7-18) mg/dL Creatinine 1.0 (0.55-1.02) mg/dL Est Cr Clr Drug Dosing 37.06 mL/min Estimated GFR (MDRD) 55 (>60) mL/min BUN/Creatinine Ratio 11.0 L (14-18) Glucose 119 H (83-115) mg/dL Calcium 8.3 L (8.5-10.1) mg/dL Total Bilirubin 0.5 (0.2-1.0) mg/dL AST 21 (15-37) U/L ALT 8 L (14-59) U/L Alkaline Phosphatase 124 H (46-116) U/L Total Protein 7.0 (6.4-8.2) g/dl Albumin 2.9 L (3.4-5.0) g/dl Globulin 4.1 gm/dL Albumin/Globulin Ratio 0.7 L (1-2) Urine Color (Yellow) Urine Appearance (Clear) Urine pH (5.0-8.0) Ur Specific [place] (1.005-1.030) Urine Protein (Negative) Urine Glucose (UA) (Negative) Urine Ketones (Negative) Urine Occult Blood (Negative) Urine Nitrite (Negative) Urine Bilirubin (Negative) Urine Urobilinogen (0.2-1.0) Ur Leukocyte Esterase (Negative) Urine RBC (0-5) /hpf Urine WBC (0-5) /hpf Ur Epithelial Cells (0-5) /hpf Amorphous Sediment (NOT SEEN) /hpf Urine Bacteria (FEW) /hpf Urine Mucus (FEW) /hpf 02/14/17 Range/Units 14:30 WBC (3.98-10.04) K/mm3 RBC (3.98-5.22) M/mm3 Hgb (11.2-15.7) gm/L Hct (34.1-44.9) % MCV (79.4-94.8) fl MCH (25.6-32.2) pg MCHC (32.2-35.5) g/dl RDW Std Deviation (36.4-46.3) fL Plt Count (182-369) K/mm3 MPV (9.4-12.3) fl Neut % (Auto) (34.0-71.1) % Lymph % (Auto) (19.3-51.7) % Cass % (Auto) (4.7-12.5) % Eos % (Auto) (0.7-5.8) Baso % (Auto) (0.1-1.2) % Neut # (Auto) (1.56-6.13) K/mm3 Lymph # (Auto) (1.18-3.74) K/mm3 Cass # (Auto) (0.24-0.36) K/mm3 Eos # (Auto) (0.04-0.36) K/mm3 Baso # (Auto) (0.01-0.08) K/mm3 PT (8.0-13.0) SECONDS INR Sodium (136-145) mEq/L Potassium (3.5-5.1) mEq/L Chloride (98-107) mEq/L Carbon Dioxide (21-32) mEq/L Anion Gap (5-15) BUN (7-18) mg/dL Creatinine (0.55-1.02) mg/dL Est Cr Clr Drug Dosing mL/min Estimated GFR (MDRD) (>60) mL/min BUN/Creatinine Ratio (14-18) Glucose (83-115) mg/dL Calcium (8.5-10.1) mg/dL Total Bilirubin (0.2-1.0) mg/dL AST (15-37) U/L ALT (14-59) U/L Alkaline Phosphatase (46-116) U/L Total Protein (6.4-8.2) g/dl Albumin (3.4-5.0) g/dl Globulin gm/dL Albumin/Globulin Ratio (1-2) Urine Color Yellow (Yellow) Urine Appearance Clear (Clear) Urine pH 7.5 (5.0-8.0) Ur Specific [place] 1.020 (1.005-1.030) Urine Protein Negative (Negative) Urine Glucose (UA) Negative (Negative) Urine Ketones Negative (Negative) Urine Occult Blood Negative (Negative) Urine Nitrite Negative (Negative) Urine Bilirubin Negative (Negative) Urine Urobilinogen 0.2 (0.2-1.0) Ur Leukocyte Esterase Trace H (Negative) Urine RBC 0-5 (0-5) /hpf Urine WBC 5-10 H (0-5) /hpf Ur Epithelial Cells 0-5 (0-5) /hpf Amorphous Sediment Few H (NOT SEEN) /hpf Urine Bacteria Few (FEW) /hpf Urine Mucus Not seen (FEW) /hpf Meds: Medications Discontinued Medications Generic Name Dose Route Start Last Admin Trade Name Freq PRN Reason Stop Dose Admin Fentanyl 50 mcg 02/14/17 14:59 02/14/17 15:32 Duragesic TRDERM 02/14/17 15:00 50 mcg ONETIME ONE Administration Hydromorphone HCl 0.5 mg 02/14/17 14:58 02/14/17 15:15 Dilaudid IVPUSH 02/14/17 14:59 0.5 mg ONETIME ONE Administration - Re-Assessments/Exams Free Text/Narrative Re-Assessment/Exam: Will obtain basic labs including CBC, C14, and INR. Patient has no urinary symptoms thus no UA will be obtained. Pain is musculoskeletal in nature. CT of the lumbar spine without contrast has been ordered. 02/14/17 13:41 Labs reviewed: White blood cell count 4.89, hemoglobin 12.0, platelet count 258, INR 1.88, sodium 142, potassium 3.9, creatinine 1.0, glucose 119, alk phosphatase 124, UA pending. CT of the lumbar spine revealed: Transverse fracture through L2 which appears to be fairly acute. Vertical fracture line at the base of the pedicles are suggested which may be on both sides indicating possible unstable fracture. Interval surgery at L4-L5 from prior CT exam. Stable compression deformity shown vertebral plasty Samet within L1. Shared results of CT study with patient. Dr. le is aware of the L2 fracture. He believes this will heal on hits own accord not requiring surgery. [id number] Le. If the patient is not having any neuro deficits to which she is not presently. He states treat the pain. He will not do surgery on her. If she requires further evaluation she would have to go to the [facility]. 02/14/17 14:59 Patient was able to stand with assistance but developed increasing pain to her lower back. She is due to have her fentanyl patch changed today. Will order 50 g fentanyl Transderm patch and also Dilaudid 0.5 mg IVP for pain. 02/14/17 15:50 UA revealed leukocyte Estrace trace, urine wbc's 5-10, amorphous sediment few. Patient has no symptoms at this time. Will culture the urine. If positive she'll be notified and started on antibiotics. Pain has improved with the above therapies. Still having discomfort with movement. Will discharge patient home with instructions as documented. Departure - Departure Time of Disposition: 15:51 Disposition: Home, Self-Care 01 Condition: Good Clinical Impression: Lumbar vertebral fracture Qualifiers: Encounter type: initial encounter Lumbar vertebra fracture level: L2 Fracture type: closed Fracture morphology: unspecified fracture morphology Qualified Code (s): S32.029A - Unspecified fracture of second lumbar vertebra, initial encounter for closed fracture - Discharge Information Instructions: Back Pain, Adult, [id number], Pain Medicine Instructions, Easy- to-Read, Chronic Back Pain Referrals: Donnie Isbell MD [Primary Care Provider] - Forms: ED Department Discharge Additional Instructions: Continue taking all your pain medications as prescribed. Suggest taking a stool softener as well. Push the fluids. Utilize lumbosacral brace as needed to reduce any pain. Get up and move since laying in bed will only make it worse. Follow-up with PCP in the next week for reevaluation. Return to the ED if you develop any Saddle anesthesia, incontinence or stool, n/t, worsening pain, or any other issues. Urine culture has been obtained. If positive you will be notified.
--- NOTE | 2017-02-14 13:18 | CT ---
CT lumbar spine Technique: Multiple axial sections were obtained from above the T11-12 disc inferiorly through the L5-S1 disc. Reconstructed axial and coronal images were reviewed. Deangelo: Previous CT lumbar spine study of 07/24/16. Findings: T11-12: Mild disc space narrowing is seen. Anterior osteophytes are seen. No central canal stenosis or neural foraminal stenosis is seen. T12-L1: Posterior disc is preserved. Anterior endplate osteophytes are seen. No central canal stenosis or neural foraminal stenosis is seen. L1-2: Severe compression deformity noted of L1. 6.9 mm retrolisthesis seen of the posterior vertebral line. Previous vertebroplasty is noted. Minimal central canal stenosis is seen. Neural foramina are patent where the nerve roots exit. L2-3: Fracture is identified transversely across the L2 vertebral body. Minimal retrolisthesis of the posterior vertebral line is seen by about 3 mm. Fracture appears to be fairly acute. There does appear to be a vertical fracture line involving the base of the pedicles on the right side and possibly on the left side. Posterior arch is otherwise intact. Neural foramina are felt to be patent where the nerve roots exit. No central canal stenosis is seen. L3-4: Posterior disc space narrowing is seen. Circumferential disc bulge is seen. Posterior disc maintains a mostly planar margin. No central canal stenosis is seen. Neural foramina are patent where the nerve roots exit. L4-5: Trans-pedicle screws are seen above and below this level. Severe disc space narrowing is seen with what appears to be intervertebral disc fixation device. Trans-pedicle screws causes significant artifact. No comment about the central canal or neural foramina can be made with certainty. L5-S1: Disc space narrowing noted. No central canal stenosis is seen. Neural foramina are patent where the nerve roots exit. Impression: 1. Transverse fracture through L2 which appears to be fairly acute. Vertical fracture line at the base of the pedicles are suggested which may be on both sides indicating possible unstable fracture. 2. Interval surgery at L4-[address] 3. Stable compression deformity showing vertebroplasty cement within L1. Diagnostic code #5
[2017-02-14] MEDS ORDERED: HYDROmorphone 0.5 MG/0.5 ML Syringe IVPUSH ONE (14:58)
[2017-02-14] MEDS ORDERED: fentaNYL 50 MCG/HR Transdermal Patch TRDERM ONE (14:59)
[2017-02-14 16:42] VITALS: BP 103/48
== END 2017-02-14 16:25 | disposition home or self-care (01) ==
LOC: SUPCPDRO 10:19 → JD.ED 10:19
DX: S32.029A Unspecified fracture of second lumbar vertebra, initial encounter for closed fracture (principal); J45.909 Unspecified asthma, uncomplicated; G47.30 Sleep apnea, unspecified; K21.9 Gastro-esophageal reflux disease without esophagitis; M81.0 Age-related osteoporosis without current pathological fracture; F32.9 Major depressive disorder, single episode, unspecified; E11.9 Type 2 diabetes mellitus without complications; E03.9 Hypothyroidism, unspecified; Z98.1 Arthrodesis status; I50.9 Heart failure, unspecified; I25.10 Atherosclerotic heart disease of native coronary artery without angina pectoris; I48.91 Unspecified atrial fibrillation; Z95.0 Presence of cardiac pacemaker; Z95.5 Presence of coronary angioplasty implant and graft; Z79.899 Other long term (current) drug therapy; Z79.01 Long term (current) use of anticoagulants; Z88.1 Allergy status to other antibiotic agents; Z88.8 Allergy status to other drugs, medicaments and biological substances; X58.XXXA Exposure to other specified factors, initial encounter
CPT/HCPCS: 36415; 72131; 80053; 81001; 85025; 85610; 87086; 87088; 87186; 96374; 99284; A9270; J1170

== ENCOUNTER 2017-06-25 20:23 | Emergency (ER) | payer OTHER, MEDICAID ==
[2017-06-25 20:38] VITALS: BP 137/78
--- NOTE | 2017-06-25 21:43 | EDM.PDOC ---
ED HPI GENERAL MEDICAL PROBLEM - General Chief Complaint: Gastrointestinal Problem Stated Complaint: vomiting diarrhea Time Seen by Provider: 06/25/17 21:17 Source of Information: Reports: Patient, Family (Daughter) History Limitations: Reports: Altered Mental Status (Dementia) - History of Present Illness INITIAL COMMENTS - FREE TEXT/NARRATIVE: The patient has a history of dementia, therefore most of her history is provided by her daughter. The patient's daughter states that the patient has been experiencing nausea and dry heaves for the past 2 weeks, despite taking oral Zofran 3 times a day. She has had watery diarrhea on and off for the past week. No recent fever or urinary symptoms. No known history of eating spoiled food. No recent antibiotics. No recent travel. No ill contacts. The patient's daughter states that this is a new problem for the patient, however, I am told that the patient's [facility] nurse informed us that the patient's symptoms are chronic. The patient's daughter states that the patient was started on Lexapro approximately 2 weeks ago, and is wondering if the Lexapro could be responsible for the patient's symptoms (there is a 15-18% incidence of nausea with Lexapro, 6-14% diarrhea). The patient's PCP is Dr. Isbell. He has not been made aware of the patient's current complaints. - Related Data Allergies Allergy/AdvReac Type Severity Reaction Status Date / Time metronidazole [From Flagyl] Allergy Cannot Verified 06/25/17 20:39 Remember promethazine HCl Allergy Cannot Verified 06/25/17 20:39 [From Phenergan] Remember cephalexin AdvReac Diarrhea Verified 06/25/17 20:39 hydrocodone AdvReac Nausea and Verified 06/25/17 20:39 Vomiting rosuvastatin calcium AdvReac Muscle Verified 06/25/17 20:39 [From Crestor] Aches tramadol AdvReac Drowsiness Verified 06/25/17 20:39 Home Meds: Home Meds Furosemide [Lasix] 40 mg PO DAILY 09/03/14 [History] Pantoprazole Sodium 40 mg PO DAILY 09/03/14 [History] Sertraline HCl 100 mg PO BEDTIME 09/03/14 [History] Pravastatin [Pravachol] 40 mg PO DAILY 03/07/15 [History] Carbidopa/Levodopa [Carbidopa-Levo 10-100 mg Odt] 1 tab PO BID 03/14/15 [History ] Calcium Carbonate/Vitamin D3 [Calcium 600 + Vit D 400 Softgl] 1 cap PO DAILY [History] Carvedilol 3.125 mg PO BID 05/23/16 [History] Isosorbide Mononitrate [Imdur] 30 mg PO DAILY 05/23/16 [History] Levothyroxine [Synthroid] 50 mcg PO DAILY 05/23/16 [History] Baclofen 10 mg PO TID PRN 10/15/16 [History] Cyanocobalamin (Vitamin B-12) [B-12] 1 tab PO DAILY 10/15/16 [History] Docusate Sodium [Colace] 1 cap PO BID 10/15/16 [History] Polyethylene Glycol 3350 [MiraLAX] 1 dose PO DAILY 10/15/16 [History] Pramipexole [Mirapex] 0.25 mg PO BEDTIME 10/15/16 [History] Acetaminophen [Tylenol] 650 mg PO Q4H PRN 01/12/17 [History] Acetaminophen [Tylenol] 650 mg PO TID 01/12/17 [History] Albuterol Sulfate [Proair Hfa] 1 puff INH BID 01/12/17 [History] Alum Hydrox/Mag Hydrox/Simeth [Mag-Al Plus] 30 ml PO BID PRN 01/12/17 [History] Bisacodyl [Dulcolax] 10 mg RECTAL DAILY PRN 01/12/17 [History] Cyclobenzaprine [Flexeril] 5 mg PO TID 01/12/17 [History] Magnesium Hydroxide [Milk of Magnesia] 30 ml PO DAILY PRN 01/12/17 [History] Mirtazapine [Remeron] 7.5 mg PO DAILY 01/12/17 [History] Ondansetron HCl [Zofran] 8 mg PO TID PRN 01/12/17 [History] Warfarin Sodium [Coumadin] 3.75 mg PO ONETIME 01/12/17 [History] Warfarin [Coumadin] 1.25 mg PO MOFR 01/12/17 [History] Warfarin [Coumadin] 2.5 mg PO SUTUWETHSA 01/12/17 [History] fentaNYL [Fentanyl] 75 mcg TOP Q72H 01/12/17 [History] oxyCODONE HCl [Roxicodone] 5 mg PO Q4H PRN 01/12/17 [History] oxyCODONE HCl [Roxicodone] 10 mg PO Q4H PRN 01/12/17 [History] Sulfamethoxazole/Trimethoprim [Bactrim Ds Tablet] 1 tab PO Q12H #9 tablet [Rx] Past Medical History HEENT History: Reports: Allergic Rhinitis, Glaucoma, Impaired Vision Cardiovascular History: Reports: Afib (chronic), CAD, Heart Failure, High Cholesterol Respiratory History: Reports: Asthma, COPD, Sleep Apnea (nightly CPAP) Gastrointestinal History: Reports: GERD Musculoskeletal History: Reports: Osteoporosis Neurological History: Reports: Alzheimers Disease, Parkinson's Psychiatric History: Reports: Depression Endocrine/Metabolic History: Reports: Diabetes, Type II, Hypothyroidism, Obesity /BMI 30+ - Infectious Disease History Infectious Disease History: Reports: Chicken Pox, Measles, Mumps - Past Surgical History Cardiovascular Surgical History: Reports: Coronary Artery Stent, Pacer GI Surgical History: Reports: Colonoscopy, EGD, Hernia Repair/Other, Ela Fundoplication Neurological Surgical History: Reports: Lumbar Spine Social & Family History - Family History Family Medical History: Noncontributory - Tobacco Use Smoking Status *Q: Never Smoker Second Hand Smoke Exposure: No - Caffeine Use Caffeine Use: Reports: None - Alcohol Use Days Per Week of Alcohol Use: 0 - Recreational Drug Use Recreational Drug Use: No - Living Situation & Occupation Living situation: Reports: Occupation: Retired ED ROS GENERAL - Review of Systems Review Of Systems: ROS reveals no pertinent complaints other than HPI. ED EXAM, GENERAL - Physical Exam Exam: See Below Exam Limited By: No Limitations General Appearance: Alert, WD/WN, No Apparent Distress Ears: Normal External Exam, Hearing Grossly Normal Nose: Normal Inspection, No Blood Throat/Mouth: Normal Inspection, Normal Lips, Normal Voice, No Airway Compromise Head: Atraumatic, Normocephalic Neck: Normal Inspection, Full Range of Motion Respiratory/Chest: No Respiratory Distress, Lungs Clear, Normal Breath Sounds, No Accessory Muscle Use Cardiovascular: Normal Peripheral Pulses, Regular Rate, Rhythm, No Gallop, No JVD, No Murmur, No Rub Peripheral Pulses: 4+: Radial (L), Radial (R) GI/Abdominal: Normal Bowel Sounds, Soft, No Organomegaly, No Distention, No Abnormal Bruit, No Mass, Tender (Mild, generalized, non-focal.), Other (Obese) (Female) Exam: Deferred Rectal (Female) Exam: Deferred Extremities: Normal Inspection, Normal Range of Motion, Normal Capillary Refill Neurological: Alert, No Motor/Sensory Deficits Psychiatric: Normal Affect Skin Exam: Warm, Dry, Intact, Normal Color, No Rash EKG INTERPRETATION EKG Date: 06/25/17 Time: 21:44 Rhythm: A-Fib (V-paced) Rate (Beats/Min): 70 P-Wave: Absent QT: Normal Course - Vital Signs Last Recorded V/S: Last Vital Signs Temp 35.7 C 06/25/17 20:34 Pulse 70 06/25/17 20:34 Resp 16 06/25/17 20:34 BP 137/78 06/25/17 20:34 Pulse Ox 100 06/25/17 20:34 Orthostatic Blood Pressure [ 120/75 Standing] Orthostatic Blood Pressure [ 144/66 Sitting] Orthostatic Blood Pressure [ 148/108 Supine] - Orders/Labs/Meds Orders: Active Orders 24 hr Category Date Time Status EKG Documentation Completion [RC] STAT Care 06/25/17 21:34 Active Orthostatic Vital Signs [RC] STAT Care 06/25/17 21:33 Active Orthostatic Vital Signs [RC] STAT Care 06/25/17 22:12 Active Chest 2V [CR] Stat Exams 06/25/17 21:33 Taken CULTURE URINE [RM] Stat Lab 06/25/17 21:50 Received Labs: Laboratory Tests 06/25/17 06/25/17 06/25/17 Range/Units 21:40 21:40 21:50 WBC 5.49 (3.98-10.04) K/mm3 RBC 4.23 (3.98-5.22) M/mm3 Hgb 13.3 (11.2-15.7) gm/L Hct 42.1 (34.1-44.9) % MCV 99.5 H (79.4-94.8) fl MCH 31.4 (25.6-32.2) pg MCHC 31.6 L (32.2-35.5) g/dl RDW Std Deviation 52.6 H (36.4-46.3) fL Plt Count 234 (182-369) K/mm3 MPV 9.4 (9.4-12.3) fl Neutrophils % (Manual) 79 H (40-60) % Band Neutrophils % 0 (0-10) % Lymphocytes % (Manual) 15 L (20-40) % Atypical Lymphs % 0 % Monocytes % (Manual) 5 (2-10) % Eosinophils % (Manual) 0 L (0.7-5.8) % Basophils % (Manual) 1 (0.1-1.2) Platelet Estimate Adequate Plt Morphology Comment Normal Macrocytosis 1+ slight Stomatocytes 1+ slight RBC Morph Comment Not Reportable Sodium 143 (136-145) mEq/L Potassium 3.5 (3.5-5.1) mEq/L Chloride 106 (98-107) mEq/L Carbon Dioxide 28 (21-32) mEq/L Anion Gap 12.5 (5-15) BUN 14 (7-18) mg/dL Creatinine 0.8 (0.55-1.02) mg/dL Est Cr Clr Drug Dosing 46.33 mL/min Estimated GFR (MDRD) > 60 (>60) mL/min BUN/Creatinine Ratio 17.5 (14-18) Glucose 118 H (83-115) mg/dL Calcium 8.5 (8.5-10.1) mg/dL Magnesium 1.9 (1.8-2.4) mg/dl Total Bilirubin 0.7 (0.2-1.0) mg/dL AST 30 (15-37) U/L ALT 12 L (14-59) U/L Alkaline Phosphatase 124 H (46-116) U/L Troponin I < 0.017 (0.00-0.056) ng/mL Total Protein 7.7 (6.4-8.2) g/dl Albumin 3.5 (3.4-5.0) g/dl Globulin 4.2 gm/dL Albumin/Globulin Ratio 0.8 L (1-2) Lipase 234 (73-393) U/L Urine Color Yellow (Yellow) Urine Appearance Slt cloudy H (Clear) Urine pH 7.5 (5.0-8.0) Ur Specific Frost 1.015 (1.005-1.030) Urine Protein Negative (Negative) Urine Glucose (UA) Negative (Negative) Urine Ketones Negative (Negative) Urine Occult Blood Trace-intact H (Negative) Urine Nitrite Positive H (Negative) Urine Bilirubin Negative (Negative) Urine Urobilinogen 1.0 (0.2-1.0) Ur Leukocyte Esterase 2+ H (Negative) Urine RBC 5-10 H (0-5) /hpf Urine WBC 50-75 H (0-5) /hpf Ur Epithelial Cells 0-5 (0-5) /hpf Urine Bacteria Many H (FEW) /hpf Urine Mucus Not seen (FEW) /hpf Meds: Medications Discontinued Medications Generic Name Dose Route Start Last Admin Trade Name Ivis PRN Reason Stop Dose Admin Sodium Chloride 1,000 mls @ 999 mls/hr 06/25/17 22:11 06/25/17 22:15 Normal Saline IV 06/25/17 23:11 999 mls/hr ONETIME ONE Administration Ondansetron HCl 4 mg 06/25/17 22:09 06/25/17 22:18 Zofran IVPUSH 06/25/17 22:10 4 mg ONETIME ONE Administration Trimethoprim/Sulfamethoxazole 1 tab 06/25/17 22:56 06/25/17 23:16 Septra Ds PO 06/25/17 22:57 1 tab ONETIME ONE Administration - Re-Assessments/Exams Free Text/Narrative Re-Assessment/Exam: 06/25/17 22:10 The patient is orthostatic. I will order 1 L normal saline bolus and recheck. 06/25/17 22:36 Two-view chest radiograph reviewed. There is cardiomegaly, but no pulmonary vascular congestion to suggest decompensated CHF. No pleural effusions. No focal infiltrate. No pneumothorax. Dual-chamber left-sided pacemaker noted. Small piece of hardware in the right humeral head noted. Formal read per the Radiologist pending. 06/25/17 23:26 Following 1 L of normal saline, the patient is no longer orthostatic. 06/25/17 23:33 Test results discussed with the patient and her daughter. As above, the patient was orthostatic, but is no longer, following 1 L of IV fluid. Her urinalysis is also consistent with a UTI. A urine culture has been sent, and I have started the patient on oral Bactrim. I will prescribe a five-day course, and I have requested that either the patient's daughter, or a [facility] nurse check with Dr. Roach's office on Sunday morning, 06/29/2017, to check on the urine culture results. The patient's daughter tells me that all of the patient's prescriptions are filled by [facility], therefore I will send the patient home with a written prescription for Bactrim, instead of an e-prescription. Departure - Departure Time of Disposition: 23:35 Disposition: Home, Self-Care 01 Condition: Good Clinical Impression: Orthostatic hypotension UTI (urinary tract infection) Qualifiers: Urinary tract infection type: acute cystitis Hematuria presence: without hematuria Qualified Code(s): N30.00 - Acute cystitis without hematuria - Discharge Information Prescriptions: Sulfamethoxazole/Trimethoprim [Bactrim Ds Tablet] 1 tab PO Q12H #9 tablet Referrals: Donnie Isbell MD [Primary Care Provider] - Forms: ED Department Discharge Additional Instructions: Ms. Cook was seen in the emergency room for nausea, dry heaves, and diarrhea. Workup in the ER included blood work, a urinalysis, an ECG, a chest x-ray, and positional blood pressure checks. She was found to be orthostatic, meaning, her blood pressure dropped too much when she stood up. This was corrected with 1 L of IV fluid. She was also found to have a urinary tract infection. She has been started on the antibiotic Bactrim. She is to take one tablet every 12 hours, as prescribed. She should finish the entire prescription unless told otherwise by Dr. Isbell. A sample of her urine has been sent for culture. Dr. Isbell' office should be contacted on the morning of 06/29/2017, to check on the urine culture results, to make sure that she is on the right antibiotic. Bactrim can also cause the INR (Coumadin number) to go up. Dr. Isbell should be made aware that she is on Bactrim, as he may want to follow her INR more closely. She should stay adequately hydrated. If any other problems, please do not hesitate to return Ms. Cook to the ER. - My Orders Last 24 Hours: My Active Orders 06/25/17 21:33 Orthostatic Vital Signs [RC] STAT Chest 2V [CR] Stat 06/25/17 21:34 EKG Documentation Completion [RC] STAT 06/25/17 21:50 CULTURE URINE [RM] Stat 06/25/17 22:12 Orthostatic Vital Signs [RC] STAT - Assessment/Plan Last 24 Hours: My Active Orders 06/25/17 21:33 Orthostatic Vital Signs [RC] STAT Chest 2V [CR] Stat 06/25/17 21:34 EKG Documentation Completion [RC] STAT 06/25/17 21:50 CULTURE URINE [RM] Stat 06/25/17 22:12 Orthostatic Vital Signs [RC] STAT
[2017-06-25] MEDS ORDERED: Ondansetron 4 MG/2 ML SDV IVPUSH ONE (22:09)
[2017-06-25] MEDS ORDERED: Sodium Chloride 0.9% 1,000 ML IV ONE (22:11)
[2017-06-25] MEDS ORDERED: Sodium Chloride 0.9% 1,000 ML IV SCH (22:15)
[2017-06-25] MEDS ORDERED: Sulfamethoxazole/Trimethoprim 800-160 MG Tab PO ONE (22:56)
--- NOTE | 2017-06-26 10:29 | CR ---
Chest: Two views of the chest were obtained. Comparison: Prior chest x-ray of 01/08/16. Heart size at the upper limits of normal. Pacemaker is present. Tortuous thoracic aorta is seen. Minimal scarring seen within the right lung base. Lungs otherwise are clear. Mild scoliosis noted within the spine. Mild degenerative change scattered within the spine. Compression deformities are noted within the upper lumbar spine which appear chronic. Minimal scoliosis is also noted. Impression: 1. Multiple findings as noted above. Nothing acute is identified. Diagnostic code #2
== END 2017-06-25 23:45 | disposition home or self-care (01) ==
LOC: JD.ED 20:23
DX: I95.1 Orthostatic hypotension (principal); N30.00 Acute cystitis without hematuria; I50.9 Heart failure, unspecified; E78.00 Pure hypercholesterolemia, unspecified; E11.9 Type 2 diabetes mellitus without complications; Z88.8 Allergy status to other drugs, medicaments and biological substances; Z88.5 Allergy status to narcotic agent; Z79.899 Other long term (current) drug therapy; Z79.01 Long term (current) use of anticoagulants
CPT/HCPCS: 36415; 71046; 80053; 81001; 83690; 83735; 84484; 85025; 87086; 87088; 87186; 93005; 96361; 96374; 99284; A9270; J2405; J7040; P9612; 93010

== ENCOUNTER 2017-11-08 07:43 | Emergency (ER) | payer OTHER, MEDICAID ==
[2017-11-08 07:57] VITALS: BP 134/59
--- NOTE | 2017-11-08 08:24 | EDM.PDOC ---
ED HPI GENERAL MEDICAL PROBLEM - General Chief Complaint: Head Injury Stated Complaint: [facility] Time Seen by Provider: 11/08/17 07:50 Source of Information: Reports: Patient History Limitations: Reports: No Limitations - History of Present Illness INITIAL COMMENTS - FREE TEXT/NARRATIVE: The patient lives at [place] and she was walking around the corner and she fell and hit her head. She has a laceration to the back of her head. 911 was called and they brought her in. She also has pain to her right flank and right lateral chest. She may have some mild pain going to her right pelvis. She did not have an LOC. She has a headache but no real neck pain. She has no numbness or weakness. Her tetanus she thinks is up to date. Onset: Sudden Duration: Minutes: Location: Reports: Head, Chest, Abdomen, Lower Extremity, Right Quality: Reports: Sharp Severity: Moderate Improves with: Reports: Immobilization Worsens with: Reports: Heat Therapy Context: Reports: Activity (She fell walking around the corner) Associated Symptoms: Reports: Chest Pain, Headaches. Denies: Cough, Fever/ Chills, Nausea/Vomiting, Shortness of Breath Treatments [employer] ATTENDANT: Reports: IV/IO, Other (see below) Other Treatments [employer] ATTENDANT: Zofran 4 mg IV Right Chest Pain Score (Numeric/FACES): 3 Right Hip Pain Score (Numeric/FACES): 3 - Related Data Allergies Allergy/AdvReac Type Severity Reaction Status Date / Time metronidazole [From Flagyl] Allergy Cannot Verified 11/08/17 07:53 Remember promethazine HCl Allergy Cannot Verified 11/08/17 07:53 [From Phenergan] Remember cephalexin AdvReac Diarrhea Verified 11/08/17 07:53 hydrocodone AdvReac Nausea and Verified 11/08/17 07:53 Vomiting rosuvastatin calcium AdvReac Muscle Verified 11/08/17 07:53 [From Crestor] Aches tramadol AdvReac Drowsiness Verified 11/08/17 07:53 Home Meds: Home Meds Furosemide [Lasix] 40 mg PO DAILY 09/03/14 [History] Pantoprazole Sodium 40 mg PO DAILY 09/03/14 [History] Sertraline HCl 100 mg PO BEDTIME 09/03/14 [History] Pravastatin [Pravachol] 40 mg PO DAILY 03/07/15 [History] Carbidopa/Levodopa [Carbidopa-Levo 10-100 mg Odt] 1 tab PO BID 03/14/15 [History ] Calcium Carbonate/Vitamin D3 [Calcium 600 + Vit D 400 Softgl] 1 cap PO DAILY [History] Carvedilol 3.125 mg PO BID 05/23/16 [History] Isosorbide Mononitrate [Imdur] 30 mg PO DAILY 05/23/16 [History] Levothyroxine [Synthroid] 50 mcg PO DAILY 05/23/16 [History] Baclofen 10 mg PO TID PRN 10/15/16 [History] Cyanocobalamin (Vitamin B-12) [B-12] 1 tab PO DAILY 10/15/16 [History] Docusate Sodium [Colace] 1 cap PO BID 10/15/16 [History] Polyethylene Glycol 3350 [MiraLAX] 1 dose PO DAILY 10/15/16 [History] Pramipexole [Mirapex] 0.25 mg PO BEDTIME 10/15/16 [History] Acetaminophen [Tylenol] 650 mg PO Q4H PRN 01/12/17 [History] Acetaminophen [Tylenol] 650 mg PO TID 01/12/17 [History] Albuterol Sulfate [Proair Hfa] 1 puff INH BID 01/12/17 [History] Alum Hydrox/Mag Hydrox/Simeth [Mag-Al Plus] 30 ml PO BID PRN 01/12/17 [History] Bisacodyl [Dulcolax] 10 mg RECTAL DAILY PRN 01/12/17 [History] Cyclobenzaprine [Flexeril] 5 mg PO TID 01/12/17 [History] Magnesium Hydroxide [Milk of Magnesia] 30 ml PO DAILY PRN 01/12/17 [History] Mirtazapine [Remeron] 7.5 mg PO DAILY 01/12/17 [History] Ondansetron HCl [Zofran] 8 mg PO TID PRN 01/12/17 [History] Warfarin Sodium [Coumadin] 3.75 mg PO ONETIME 01/12/17 [History] Warfarin [Coumadin] 1.25 mg PO MOFR 01/12/17 [History] Warfarin [Coumadin] 2.5 mg PO SUTUWETHSA 01/12/17 [History] fentaNYL [Fentanyl] 75 mcg TOP Q72H 01/12/17 [History] oxyCODONE HCl [Roxicodone] 5 mg PO Q4H PRN 01/12/17 [History] oxyCODONE HCl [Roxicodone] 10 mg PO Q4H PRN 01/12/17 [History] Sulfamethoxazole/Trimethoprim [Bactrim Ds Tablet] 1 tab PO Q12H #9 tablet [Rx] Past Medical History HEENT History: Reports: Allergic Rhinitis, Glaucoma, Impaired Vision Cardiovascular History: Reports: Afib, CAD, Heart Failure, High Cholesterol Other Cardiovascular History: Pace maker and 2 stents Respiratory History: Reports: Asthma, COPD, Sleep Apnea Other Respiratory History: Wears C-pap at night Gastrointestinal History: Reports: GERD Other Gastrointestinal History: Patient has gallstones, Dysphagia, gastirc ulcer with hemorrhage Genitourinary History: Reports: None COLLECTIONS OFFICER History: Reports: None Musculoskeletal History: Reports: Osteoporosis Other Musculoskeletal History: spine fusion, compression fracture, post laminectomy syndrome, R hip bursitis, low back pain, restless leg sydrome, muscle weakness Neurological History: Reports: Alzheimers Disease, Parkinson's Other Neuro History: restless leg syndrome, spinal fusion, parkinsons disease, spinal stenosis Psychiatric History: Reports: Depression Other Psychiatric History: cognitive communication deficit, insomnia Endocrine/Metabolic History: Reports: Diabetes, Type II, Hypothyroidism, Obesity /BMI 30+ Hematologic History: Reports: Other (See Below) Other Hematologic History: hypokalemia Immunologic History: Reports: None Oncologic (Cancer) History: Reports: None Other Dermatologic History: HX of yeast infections - Infectious Disease History Infectious Disease History: Reports: Chicken Pox, Measles, Mumps - Past Surgical History Cardiovascular Surgical History: Reports: Coronary Artery Stent, Pacer GI Surgical History: Reports: Colonoscopy, EGD, Hernia Repair/Other, Ela Fundoplication Female Surgical History: Reports: None Neurological Surgical History: Reports: Lumbar Spine Social & Family History - Family History Family Medical History: Noncontributory - Tobacco Use Smoking Status *Q: Never Smoker - Caffeine Use Caffeine Use: Reports: None - Living Situation & Occupation Living situation: Reports: Occupation: Retired ED ROS GENERAL - Review of Systems Review Of Systems: See Below Constitutional: Reports: No Symptoms HEENT: Reports: No Symptoms Respiratory: Reports: No Symptoms Cardiovascular: Reports: No Symptoms Endocrine: Reports: No Symptoms GI/Abdominal: Reports: Other (Right flank pain) : Reports: Flank Pain (Right) Musculoskeletal: Reports: Other (Right pelvis pain) Neurological: Reports: Headache ED EXAM, HEAD INJURY - Physical Exam Exam: See Below Exam Limited By: No Limitations General Appearance: Alert, No Apparent Distress Head: Other (1cm Laceration to the upper occipital region) Eyes: Bilateral Eye: EOMI Ears: Normal External Exam Nose: Normal Inspection Neck: Non-Tender, Normal Alignment, Normal Inspection Respiratory: No Respiratory Distress, Lungs Clear, Normal Breath Sounds Cardiovascular: Regular Rate, Rhythm, No Edema, No Murmur, Other (Pain upon palpation to the right lateral chest) GI/Abdominal Exam: Soft, No Organomegaly, Other (Right lateral flank and abdominal pain) Extremities: Other (Right pelvic pain) ED LACERATION/WOUND & AUBREY PROC - Laceration/Wound Repair Head Lac/wound length in cm: 1 Appearance: Subcutaneous, Linear Skin Prep: Saline Exploration/Debridement/Repair: Wound Explored, In a Bloodless Field, Explored to Base Closed with: Dermabond Tetanus Status Addressed: Yes Complications: No Course - Vital Signs Last Recorded V/S: Last Vital Signs Temp 98.5 F 11/08/17 07:53 Pulse 70 11/08/17 07:53 Resp 12 11/08/17 07:53 BP 134/59 L 11/08/17 07:53 Pulse Ox 94 L 11/08/17 07:53 - Orders/Labs/Meds Orders: Active Orders 24 hr Category Date Time Status Cardiac Monitoring [RC] . DIRECTED Care 11/08/17 08:38 Active Oxygen Therapy [RC] PRN Care 11/08/17 08:38 Active Labs: Laboratory Tests 11/08/17 11/08/17 11/08/17 Range/Units 08:34 08:34 08:34 WBC 4.36 (3.98-10.04) K/mm3 RBC 3.65 L (3.98-5.22) M/mm3 Hgb 11.6 (11.2-15.7) gm/L Hct 37.2 (34.1-44.9) % MCV 101.9 H (79.4-94.8) fl MCH 31.8 (25.6-32.2) pg MCHC 31.2 L (32.2-35.5) g/dl RDW Std Deviation 49.1 H (36.4-46.3) fL Plt Count 164 L (182-369) K/mm3 MPV 9.7 (9.4-12.3) fl Neut % (Auto) 64.9 (34.0-71.1) % Lymph % (Auto) 23.9 (19.3-51.7) % [place] % (Auto) 8.5 (4.7-12.5) % Eos % (Auto) 1.6 (0.7-5.8) Baso % (Auto) 0.9 (0.1-1.2) % Neut # (Auto) 2.83 (1.56-6.13) K/mm3 Lymph # (Auto) 1.04 L (1.18-3.74) K/mm3 [place] # (Auto) 0.37 H (0.24-0.36) K/mm3 Eos # (Auto) 0.07 (0.04-0.36) K/mm3 Baso # (Auto) 0.04 (0.01-0.08) K/mm3 PT 18.8 H (9.5-12.1) SECONDS INR 1.74 Sodium 141 (136-145) mEq/L Potassium 3.6 (3.5-5.1) mEq/L Chloride 103 (98-107) mEq/L Carbon Dioxide 30 (21-32) mEq/L Anion Gap 11.6 (5-15) BUN 24 H (7-18) mg/dL Creatinine 1.5 H (0.55-1.02) mg/dL Est Cr Clr Drug Dosing 26.81 mL/min Estimated GFR (MDRD) 34 (>60) mL/min BUN/Creatinine Ratio 16.0 (14-18) Glucose 129 H (83-115) mg/dL Calcium 8.9 (8.5-10.1) mg/dL Total Bilirubin 0.8 (0.2-1.0) mg/dL AST 25 (15-37) U/L ALT 22 (14-59) U/L Alkaline Phosphatase 98 (46-116) U/L Total Protein 6.8 (6.4-8.2) g/dl Albumin 3.2 L (3.4-5.0) g/dl Globulin 3.6 gm/dL Albumin/Globulin Ratio 0.9 L (1-2) - Re-Assessments/Exams Free Text/Narrative Re-Assessment/Exam: 11/08/17 08:27 I ordered an IV saline lock, CT of her head, cervical spine, chest, abdomen and pelvis. I also ordered some labs. 11/08/17 09:28 Her CBC looks good. Her INR was elevated at 1.74. Her creatinine was elevated at 1.5. The CT of her head shows senescent change, mild soft tissue swelling within the posterior left scalp, no acute intracranial abnormality is identified. The CT of her cervical spine shows left clavicle fracture which most likely is old as the margins of the fracture appear somewhat smooth. Degenerative change. No acute fracture or abnormal subluxation is seen within the cervical spine. The CT of her chest shows left clavicle fracture which is likely old. Other incidental findings. Nothing acute is appreciated on CT study of the chest. CT of the abdomen and pelvis shows subcutaneous contusion within the fat of the posterior right back. No other acute is seen on CT study of the abdomen and pelvis. I was able to use adhesive on her laceration. I will discharge her home. Departure - Departure Time of Disposition: 09:35 Disposition: Home, Self-Care 01 Condition: Good Clinical Impression: Fall Qualifiers: Encounter type: initial encounter Qualified Code(s): W19.XXXA - Unspecified fall, initial encounter Laceration of scalp Qualifiers: Encounter type: initial encounter Qualified Code(s): S01.01XA - Laceration without foreign body of scalp, initial encounter Contusion Qualifiers: Encounter type: initial encounter Contusion area: lower back Qualified Code(s) : S30.0XXA - Contusion of lower back and pelvis, initial encounter - Discharge Information Referrals: Randall Segura MD [Primary Care Provider] - 1 Week Forms: ED Department Discharge Additional Instructions: Ice the areas that hurt for 15 minutes 3 times per day for 2 days. Take tylenol for the pain. Please return if you are worse. - My Orders Last 24 Hours: My Active Orders 11/08/17 08:38 Cardiac Monitoring [RC] . DIRECTED Oxygen Therapy [RC] PRN - Assessment/Plan Last 24 Hours: My Active Orders 11/08/17 08:38 Cardiac Monitoring [RC] . DIRECTED Oxygen Therapy [RC] PRN
--- NOTE | 2017-11-08 08:34 | CT ---
Head CT Technique: Multiple axial sections through the brain were obtained. Intravenous contrast was not utilized. Comparison: No prior intracranial imaging is available. Findings: Ventricles along with basal cisterns and sulci over the convexities are mildly prominent. Slight soft tissue swelling is seen within the posterior left scalp. Diminished density is noted within portions of the basal ganglia as well as subcortical and periventricular white matter which is compatible with small vessel ischemic demyelination change. Incidental basal ganglia calcification is noted. No evidence of intracranial hemorrhage is seen. Atherosclerotic calcification is seen within the carotid siphon and within the left vertebral vessel. Bone window settings were reviewed which shows minimal mucosal thickening within the ethmoid sinuses which is incidental. No acute calvarial abnormality is seen. Impression: 1. Senescent change as noted above. 2. Mild soft tissue swelling within the posterior left scalp. 3. No acute intracranial abnormality is identified. Diagnostic code #2
--- NOTE | 2017-11-08 08:48 | CT ---
CT chest Technique: Multiple axial sections were obtained from above the lung apices inferiorly through the lung bases. Intravenous contrast was not utilized. Comparison: No prior chest CT. Findings: Left clavicle fracture is seen. As mentioned on cervical spine study, margins of this fracture are smooth and this is most likely old. Artifact from pacemaker is noted. Atherosclerotic calcification is seen within the thoracic aorta. No mediastinal mass or adenopathy is seen. Hilar regions appear within normal limits. Coronary artery calcification is seen. No pericardial effusion is seen. Lungs are clear with no pulmonary contusion. No pleural effusions are seen. No pneumothorax is identified. No discrete rib abnormality is seen. Diffuse degenerative change is noted within the spine. Impression: 1. Left clavicle fracture which is likely old. 2. Other incidental findings. Nothing acute is appreciated on CT study of the chest. Diagnostic code #2 CT abdomen and pelvis Technique: Multiple axial sections were obtained from above the dome of the diaphragm inferiorly through the pubic symphysis. Intravenous and oral contrast was not utilized. Comparison: Prior CT abdomen and pelvis exam dated 03/07/15. Findings: Liver shows no discrete abnormality. Single calcified gallstone is seen within the gallbladder which is stable from prior exam measuring approximately 1.5 cm. Spleen appears within normal limits. Adrenal glands show no nodule. Pancreas appears within normal limits. Aorta shows diffuse atherosclerotic change which continues into the iliac vessels. No aneurysm is seen. No retroperitoneal adenopathy is identified. No mesenteric abnormalities are seen. No pelvic mass or adenopathy is identified. Mild increased stool is noted throughout the colon. No free fluid is seen within the abdomen or pelvis. Previous lumbar spine surgery is noted. Compression deformity is seen of L1 which contains vertebroplasty cement. Moderate to severe compression deformity seen of L2 which appears to be fairly old. No acute abnormality is appreciated within the lumbar spine. Orthopedic hardware is noted within the left hip affixing an old hip fracture. Nothing acute is seen within the pelvis. Soft tissue density is noted within the subcutaneous fat of the posterior right side of the back at the level of the upper pelvis compatible with subcutaneous contusion. Impression: 1. Subcutaneous contusion within the fat of the posterior right back. 2. Other findings as noted above. No other acute is seen on CT study of the abdomen and pelvis. Diagnostic code #2
--- NOTE | 2017-11-08 08:48 | CT ---
CT cervical spine Technique: Multiple axial sections were obtained from above the C1 inferiorly to the top of T2. Reconstructed sagittal and coronal images were reviewed. Comparison: No previous cervical spine imaging is available. Findings: Mild diffuse disc space narrowing is seen throughout the cervical spine with mild scattered anterior endplate osteophytes and minimal posterior disc endplate osteophytes. Mild degenerative change is scattered throughout the uncovertebral joints. Posterior skull base is intact. Mild degenerative change noted between the dens and anterior arch of C1. Mild diffuse degenerative change within the apophyseal joints is seen. Moderate right-sided neural foraminal stenosis noted at C3-C4. Mild left-sided neural foraminal stenosis noted at C3-C4. Mild right-sided neural foraminal stenosis noted at C4-C5. Other neural foramina are felt to be patent. No bony central canal stenosis is seen. Left clavicle fracture is seen. This appears to be old as the margins are fairly smooth. No cervical spine fracture is appreciated. No abnormal subluxation is seen. Scoliosis noted on the reconstructed sagittal images. Impression: 1. Left clavicle fracture which most likely is old as the margins of the fracture appear somewhat smooth. 2. Degenerative change as noted above. 3. No acute fracture or abnormal subluxation is seen within the cervical spine. Diagnostic code #3
[2017-11-08] MEDS ORDERED: Acetaminophen 325 MG Tab PO ONE (09:51)
== END 2017-11-08 11:10 | disposition home or self-care (01) ==
LOC: JD.ED 07:43
DX: S01.01XA Laceration without foreign body of scalp, initial encounter (principal); S30.0XXA Contusion of lower back and pelvis, initial encounter; J44.9 Chronic obstructive pulmonary disease, unspecified; I50.9 Heart failure, unspecified; E11.9 Type 2 diabetes mellitus without complications; E66.9 Obesity, unspecified; E03.9 Hypothyroidism, unspecified; I48.91 Unspecified atrial fibrillation; Z88.8 Allergy status to other drugs, medicaments and biological substances; Z88.6 Allergy status to analgesic agent; Z79.899 Other long term (current) drug therapy; Z79.01 Long term (current) use of anticoagulants; W19.XXXA Unspecified fall, initial encounter
CPT/HCPCS: 12001; 36415; 70450; 71250; 72125; 74176; 80053; 85025; 85610; 99285; A9270; 99284-25

== ENCOUNTER 2020-12-06 22:58 | Observation (INO) | payer MEDICARE, MEDICAID, OTHER ==
[2020-12-06] MEDS ORDERED: Sodium Chloride 0.9% 10 ML Syringe FLUSH PRN (23:11)
--- NOTE | 2020-12-07 01:50 | EDM.PDOC ---
ED HPI GENERAL MEDICAL PROBLEM - General Chief Complaint: General Stated Complaint: [facility] Time Seen by Provider: 12/06/20 23:06 Source of Information: Reports: Patient History Limitations: Reports: No Limitations - History of Present Illness INITIAL COMMENTS - FREE TEXT/NARRATIVE: The patient presents by [facility] for a fall and left hip pain. The patient is a resident of [facility] assisted [facility]. She fell early this morning at 5am. The staff got her up and her daughter came and they walked and she did good, however, the pain got worse in the left hip. When EMS arrived, they noticed her left leg was shortened. The patient is on coumadin for atrial fibrillation. She does not think she hit her head. She has no headache now or neck pain. She denies chest pain or abdominal pain. She has no fever, chills cough, chest pain, or shortness of breath. The patient does have a history of hip surgery on the left. Onset: Sudden Duration: Hour(s): Location: Reports: Lower Extremity, Left (hip) Quality: Reports: Sharp Severity: Moderate Improves with: Reports: Immobilization Worsens with: Reports: Heat Therapy Context: Reports: Trauma (fell at 5am) Associated Symptoms: Reports: No Other Symptoms Other Treatments [employer]PER[employer]OR: tylenol at 1600 today - Related Data Allergies Allergy/AdvReac Type Severity Reaction Status Date / Time metronidazole [From Flagyl] Allergy Severe Cannot Verified 12/06/20 23:15 Remember promethazine HCl Allergy Severe Cannot Verified 12/06/20 23:15 [From Phenergan] Remember cephalexin AdvReac Severe Diarrhea Verified 12/06/20 23:15 hydrocodone AdvReac Severe Nausea and Verified 12/06/20 23:15 Vomiting rosuvastatin calcium AdvReac Severe Muscle Verified 12/06/20 23:15 [From Crestor] Aches tramadol AdvReac Severe Drowsiness Verified 12/06/20 23:15 Home Meds: Home Meds Furosemide [Lasix] 40 mg PO DAILY 09/03/14 [History] Carbidopa/Levodopa [Carbidopa-Levo 10-100 mg Odt] 1 tab PO BID 03/14/15 [History] Calcium Carbonate/Vitamin D3 [Calcium 600Mg-D3 400 Unit Sfgl] 1 cap PO DAILY 05/23/16 [History] Isosorbide Mononitrate [Imdur] 30 mg PO DAILY 05/23/16 [History] Levothyroxine [Synthroid] 75 mcg PO DAILY 05/23/16 [History] carvediloL [Carvedilol] 3.125 mg PO BEDTIME 05/23/16 [History] Baclofen 10 mg PO QPM PRN 10/15/16 [History] Cyanocobalamin (Vitamin B-12) [B-12] 1 tab PO DAILY 10/15/16 [History] Polyethylene Glycol 3350 [MiraLAX] 1 dose PO DAILY 10/15/16 [History] Acetaminophen [Tylenol] 650 mg PO BID 01/12/17 [History] Acetaminophen [Tylenol] 650 mg PO Q6H PRN 01/12/17 [History] Albuterol Sulfate [Proair Hfa] 1 puff INH BID 01/12/17 [History] Mirtazapine [Remeron] 7.5 mg PO DAILY 01/12/17 [History] Warfarin [Coumadin] 2 mg PO ASDIRECTED 01/12/17 [History] Warfarin [Coumadin] 4 mg PO ASDIRECTED 01/12/17 [History] fentaNYL [Fentanyl] 25 mcg TOP Q72H 01/12/17 [History] ondansetron HCL [Zofran] 8 mg PO TID PRN 01/12/17 [History] ARIPiprazole [Abilify] 5 mg PO DAILY 12/07/20 [History] Denosumab [Prolia] 1 dose SUBCUT ASDIRECTED 12/07/20 [History] Dorzolamide [Trusopt 2% Ophth Soln] 1 drop EYEBOTH BID 12/07/20 [History] FLUoxetine [PROzac] 40 mg PO DAILY 12/07/20 [History] Famotidine 40 mg PO DAILY 12/07/20 [History] Furosemide [Lasix] 80 mg PO DAILY 12/07/20 [History] Lactobacillus Acidophilus [Acidophilus Probiotic] 1 tab PO DAILY 12/07/20 [History] Lantanoprost 1 drop EYEBOTH BEDTIME 12/07/20 [History] Nystatin [Nyata] 1 dose TOP ASDIRECTED 12/07/20 [History] Omeprazole 20 mg PO DAILY 12/07/20 [History] Potassium Chloride [Klor-Con 10] 20 meq PO DAILY 12/07/20 [History] Pramipexole Di-HCl [Pramipexole Dihydrochloride] 0.25 mg PO BEDTIME 12/07/20 [History] Sennosides [Mila-Jamir] 2 tab PO BEDTIME 12/07/20 [History] atorvaSTATin [Lipitor] 40 mg PO BEDTIME 12/07/20 [History] Past Medical History HEENT History: Reports: Allergic Rhinitis, Glaucoma, Impaired Vision Cardiovascular History: Reports: Afib, CAD, Heart Failure, High Cholesterol, Pacemaker, Stents, Other (See Below) Other Cardiovascular History: Pace maker and 2 stents; 3rd degree av block Respiratory History: Reports: Asthma, COPD, Sleep Apnea Other Respiratory History: Wears C-pap at night Gastrointestinal History: Reports: GERD Other Gastrointestinal History: Patient has gallstones, Dysphagia, gastirc ulcer with hemorrhage Genitourinary History: Reports: None [employer]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 Musculoskeletal History: Reports: Osteoporosis Other Musculoskeletal History: spine fusion, compression fracture, post laminectomy syndrome, R hip bursitis, low back pain, restless leg sydrome, muscle weakness Neurological History: Reports: Alzheimers Disease, Parkinson's Other Neuro History: restless leg syndrome, spinal fusion, parkinsons disease, spinal stenosis Psychiatric History: Reports: Depression Other Psychiatric History: cognitive communication deficit, insomnia Endocrine/Metabolic History: Reports: Diabetes, Type II, Hypothyroidism, Obesity/BMI 30+ Hematologic History: Reports: Other (See Below) Other Hematologic History: hypokalemia Immunologic History: Reports: None Oncologic (Cancer) History: Reports: None Other Dermatologic History: HX of yeast infections - Infectious Disease History Infectious Disease History: Reports: Chicken Pox, Measles, Mumps - Past Surgical History Cardiovascular Surgical History: Reports: Coronary Artery Stent, Pacer GI Surgical History: Reports: Colonoscopy, EGD, Hernia Repair/Other, Ela Fundoplication Female Surgical History: Reports: None Neurological Surgical History: Reports: Lumbar Spine Musculoskeletal Surgical History: Reports: Other (See Below) Other Musculoskeletal Surgeries/Procedures:: revised lumbar surgery in November 2016 in [place] Social & Family History - Family History Family Medical History: No Pertinent Family History - Tobacco Use Tobacco Use Status *Q: Never Tobacco User - Caffeine Use Caffeine Use: Reports: Soda - Recreational Drug Use Recreational Drug Use: No - Living Situation & Occupation Living situation: Reports: Occupation: Retired ED ROS GENERAL - Review of Systems Review Of Systems: See Below Constitutional: Reports: No Symptoms HEENT: Reports: No Symptoms Respiratory: Reports: No Symptoms Cardiovascular: Reports: No Symptoms Endocrine: Reports: No Symptoms GI/Abdominal: Reports: No Symptoms : Reports: No Symptoms Musculoskeletal: Reports: Other (left hip pain) ED EXAM, GENERAL - Physical Exam Exam: See Below Exam Limited By: No Limitations General Appearance: Alert, No Apparent Distress Ears: Normal External Exam Nose: Normal Inspection Head: Atraumatic, Normocephalic Neck: Normal Inspection, Supple, Non-Tender Respiratory/Chest: No Respiratory Distress, Lungs Clear, Normal Breath Sounds Cardiovascular: Regular Rate, Rhythm, No Edema, No Murmur GI/Abdominal: Soft, Non-Tender, No Organomegaly, No Mass Back Exam: Normal Inspection Extremities: Other (Left leg is shortened and she has pain upon palpation to the left hip) Course - Vital Signs Last Recorded V/S: Last Vital Signs Temp 97.5 F 12/06/20 23:07 Pulse 70 12/06/20 23:07 Resp 20 12/06/20 23:07 BP 127/66 12/06/20 23:07 Pulse Ox 95 12/06/20 23:07 - Orders/Labs/Meds Orders: Active Orders 24 hr Category Date Time Status Cardiac Monitoring [RC] . DIRECTED Care 12/06/20 23:11 Active Peripheral IV Care [RC] . DIRECTED Care 12/06/20 23:11 Active Head wo Cont [CT] Stat Exams 12/06/20 23:11 Taken Hip Min 2V or 3V w Pelvis Lt [CR] Stat Exams 12/06/20 23:12 Taken Pelvis wo Cont [CT] Stat Exams 12/07/20 00:47 Taken Sodium Chloride 0.9% [Saline Flush] Med 12/06/20 23:11 Active 10 ml FLUSH ASDIRECTED PRN Peripheral IV Insertion Adult [OM.PC] Stat Oth 12/06/20 23:11 Ordered Medication Orders Sodium Chloride (Sodium Chloride 0.9% 10 Ml Syringe) 10 ml FLUSH ASDIRECTED PRN PRN Reason: Keep Vein Open Labs: Laboratory Tests 12/06/20 12/06/20 12/06/20 Range/Units 23:20 23:20 23:20 WBC 7.57 (3.98-10.04) K/mm3 RBC 4.00 (3.98-5.22) M/mm3 Hgb 12.9 (11.2-15.7) gm/dl Hct 41.0 (34.1-44.9) % MCV 102.5 H (79.4-94.8) fl MCH 32.3 H (25.6-32.2) pg MCHC 31.5 L (32.2-35.5) g/dl RDW Std Deviation 51.8 H (36.4-46.3) fL Plt Count 106 L (182-369) K/mm3 MPV 10.0 (9.4-12.3) fl Neut % (Auto) 73.9 H (34.0-71.1) % Lymph % (Auto) 16.5 L (19.3-51.7) % Hubbard % (Auto) 8.2 (4.7-12.5) % Eos % (Auto) 0.7 (0.7-5.8) Baso % (Auto) 0.4 (0.1-1.2) % Neut # (Auto) 5.60 (1.56-6.13) K/mm3 Lymph # (Auto) 1.25 (1.18-3.74) K/mm3 Hubbard # (Auto) 0.62 H (0.24-0.36) K/mm3 Eos # (Auto) 0.05 (0.04-0.36) K/mm3 Baso # (Auto) 0.03 (0.01-0.08) K/mm3 PT 16.1 H (9.7-12.0) SECONDS INR 1.52 Sodium 143 (136-145) mEq/L Potassium 3.8 (3.5-5.1) mEq/L Chloride 105 (98-107) mEq/L Carbon Dioxide 26 (21-32) mEq/L Anion Gap 15.8 H (5-15) BUN 32 H (7-18) mg/dL Creatinine 1.7 H (0.55-1.02) mg/dL Est Cr Clr Drug Dosing 25.73 mL/min Estimated GFR (MDRD) 29 (>60) mL/min BUN/Creatinine Ratio 18.8 H (14-18) Glucose 114 H (70-99) mg/dL Calcium 8.5 (8.5-10.1) mg/dL Total Bilirubin 1.5 H (0.2-1.0) mg/dL AST 71 H (15-37) U/L ALT 21 (14-59) U/L Alkaline Phosphatase 63 (46-116) U/L Total Protein 6.8 (6.4-8.2) g/dl Albumin 3.4 (3.4-5.0) g/dl Globulin 3.4 gm/dL Albumin/Globulin Ratio 1.0 (1-2) SARS-CoV-2 RNA (AURELIANO) (NEGATIVE) 12/07/20 Range/Units 05:38 WBC (3.98-10.04) K/mm3 RBC (3.98-5.22) M/mm3 Hgb (11.2-15.7) gm/dl Hct (34.1-44.9) % MCV (79.4-94.8) fl MCH (25.6-32.2) pg MCHC (32.2-35.5) g/dl RDW Std Deviation (36.4-46.3) fL Plt Count (182-369) K/mm3 MPV (9.4-12.3) fl Neut % (Auto) (34.0-71.1) % Lymph % (Auto) (19.3-51.7) % Hubbard % (Auto) (4.7-12.5) % Eos % (Auto) (0.7-5.8) Baso % (Auto) (0.1-1.2) % Neut # (Auto) (1.56-6.13) K/mm3 Lymph # (Auto) (1.18-3.74) K/mm3 Hubbard # (Auto) (0.24-0.36) K/mm3 Eos # (Auto) (0.04-0.36) K/mm3 Baso # (Auto) (0.01-0.08) K/mm3 PT (9.7-12.0) SECONDS INR Sodium (136-145) mEq/L Potassium (3.5-5.1) mEq/L Chloride (98-107) mEq/L Carbon Dioxide (21-32) mEq/L Anion Gap (5-15) BUN (7-18) mg/dL Creatinine (0.55-1.02) mg/dL Est Cr Clr Drug Dosing mL/min Estimated GFR (MDRD) (>60) mL/min BUN/Creatinine Ratio (14-18) Glucose (70-99) mg/dL Calcium (8.5-10.1) mg/dL Total Bilirubin (0.2-1.0) mg/dL AST (15-37) U/L ALT (14-59) U/L Alkaline Phosphatase (46-116) U/L Total Protein (6.4-8.2) g/dl Albumin (3.4-5.0) g/dl Globulin gm/dL Albumin/Globulin Ratio (1-2) SARS-CoV-2 RNA (AURELIANO) Negative (NEGATIVE) Meds: Medications Generic Name Dose Route Start Last Admin Trade Name Freq PRN Reason Stop Dose Admin Sodium Chloride 10 ml 12/06/20 23:11 Sodium Chloride 0.9% 10 Ml Syringe FLUSH ASDIRECTED PRN Keep Vein Open - Re-Assessments/Exams Free Text/Narrative Re-Assessment/Exam: 12/07/20 01:[address] of her head, x-ray of her left hip with pelvis and labs. Her CBC looks good. Her INR is 1.52. Her creatinine is elevated at 1.7. Her glucose is 114. Her total bili is elevated at 1.5. Her AST is elevated at 71. The CT of her head shows atrophy and nonspecific chronic white matter change. No acute intracranial abnormality present. The x-ray shows moderately displaced pubic rami fractures on theleft. No proximal femoral fracture identified. We have no ortho software sales consultant today. I called [facility] in [place] and talked with Dr Salazar the orthopedic surgeon software sales consultant and he wanted me to get a CT of her pelvis so we can see the whole pelvis better. I have ordered that. 12/07/20 07:[address] shows a comminuted mildly displaced fracture of the superior and inferior pubic ramus on the left. No evidence for pelvic mass or hematoma. This is not something that needs surgery according to Dr Salazar. She needs to be admitted and weight bearing as tolerated, pain control and physical therapy. We do not have ortho on. Both hospitals are full in [place]. I talked to our hospitalist and he agreed to the admission. Departure - Departure Time of Disposition: 07:20 Disposition: Admitted As Inpatient 66 Condition: Fair Clinical Impression: Fall Qualifiers: Encounter type: initial encounter Qualified Code(s): W19.XXXA - Unspecified fall, initial encounter Fracture of superior ramus of left pubis Qualifiers: Encounter type: initial encounter Fracture type: closed Qualified Code(s): S32.512A - Fracture of superior rim of left pubis, initial encounter for closed fracture Fracture of left inferior pubic ramus Qualifiers: Encounter type: initial encounter Fracture type: closed Qualified Code(s): S32.592A - Other specified fracture of left pubis, initial encounter for closed fracture - Discharge Information Referrals: Randall Segura MD [Primary Care Provider] - Forms: ED Department Discharge Sepsis Event Note (ED) - Evaluation Sepsis Screening Result: No Definite Risk - Focused Exam Vital Signs: Vital Signs Temp Pulse Resp BP Pulse Ox 12/06/20 23:07 97.5 F 70 20 127/66 95 - My Orders Last 24 Hours: My Active Orders 12/06/20 23:11 Cardiac Monitoring [RC] . DIRECTED Peripheral IV Care [RC] . DIRECTED Head wo Cont [CT] Stat Sodium Chloride 0.9% [Saline Flush] 10 ml FLUSH ASDIRECTED PRN Peripheral IV Insertion Adult [OM.PC] Stat 12/06/20 23:12 Hip Min 2V or 3V w Pelvis Lt [CR] Stat 12/07/20 00:47 Pelvis wo Cont [CT] Stat - Assessment/Plan Last 24 Hours: My Active Orders 12/06/20 23:11 Cardiac Monitoring [RC] . DIRECTED Peripheral IV Care [RC] . DIRECTED Head wo Cont [CT] Stat Sodium Chloride 0.9% [Saline Flush] 10 ml FLUSH ASDIRECTED PRN Peripheral IV Insertion Adult [OM.PC] Stat 12/06/20 23:12 Hip Min 2V or 3V w Pelvis Lt [CR] Stat 12/07/20 00:47 Pelvis wo Cont [CT] Stat
--- NOTE | 2020-12-07 07:24 | PCM.HP.2 ---
H&P History of Present Illness - General Date of Service: 12/07/20 Source of Information: Patient, Old Records, Provider, RN, RN Notes Reviewed History Limitations: Reports: No Limitations - History of Present Illness Initial Comments - Free Text/Narative: This is a 75-year-old female who resides at [facility], who was presented to our ED on the evening of 12/06/2020 via [facility] for left hip pain after a fall. Fall reportedly occurred earlier in the day at 5 AM. It is reported that they were able to ambulate the patient without issue initially, however her left hip pain has gotten worse as the day went on. They noticed that her left leg was shorter. She is on Coumadin for atrial fibrillation. Patient does not believe she hit her head and has no headache or neck pain. Denies any chest pain, abdominal pain, fever, chills, cough, shortness of breath. She does have a history of hip surgery on the left side. In the ED temp was 97.5. Pulse 70. Respirations 20. Blood pressure 127/66. P ulse ox 95%. Labs are obtained with a normal white count of 7.57. Hemoglobin is 12.9. Hematocrit 41.0. Platelet 106,000. INR is 1.52. Sodium 143. Potassium 3.8. Chloride 105. Carbon dioxide 26. Anion gap is slightly elevated at 15.8. BUN is 32. Creatinine 1.7. GFR is 29. Glucose 114. Total bilirubin 1.5. AST 71, ALT 21, alkaline phosphatase 63. Albumin is 3.4. SARS-CoV-[address] of the head is obtained showing atrophy and nonspecific chronic white matter change. There is no acute intracranial abnormality present. Hip x-ray shows moderately displaced pubic rami fractures on the left. No proximal femoral fracture is identified. CT of the pelvis shows a comminuted mildly displaced fracture of the superior and inferior pubic rami on the left with no evidence of pelvic mass or hematoma. [facility] Dr. Salazar was contacted by the ED provider who states that this is nonsurgical and that the patient may weight-bear as tolerated. He recommended admission for pain control and physical therapy. Hospitals in [place] are reportedly full and the patient is subsequently admitted to our floor. She carries a history of: A. fib, CAD, CHF, HLD, pacemaker secondary to third- degree AV block, 2 stents placed, asthma, COPD, sleep apnea controlled with CPAP at night, GERD, renal calculi, dysphagia, PUD, osteoporosis, chronic low back pain, RLS, postlaminectomy syndrome, Alzheimer's disease, Parkinson's disease, depression, cognitive communication deficit, insomnia, type II DM, hypothyroidism, obesity, hypokalemia. Her PCP is Dr. Segura. - Related Data Allergies/Adverse Reactions: Allergies Allergy/AdvReac Type Severity Reaction Status Date / Time metronidazole [From Flagyl] Allergy Severe Cannot Verified 12/07/20 09:30 Remember promethazine HCl Allergy Severe Cannot Verified 12/07/20 09:30 [From Phenergan] Remember cephalexin AdvReac Severe Diarrhea Verified 12/07/20 09:30 hydrocodone AdvReac Severe Nausea and Verified 12/07/20 09:30 Vomiting rosuvastatin calcium AdvReac Severe Muscle Verified 12/07/20 09:30 [From Crestor] Aches tramadol AdvReac Severe Drowsiness Verified 12/07/20 09:30 Home Medications: Home Meds Furosemide [Lasix] 40 mg PO 1200 09/03/14 [History] Carbidopa/Levodopa [Carbidopa-Levo 10-100 mg Odt] 1 tab PO BID 03/14/15 [History] Calcium Carbonate/Vitamin D3 [Calcium 600Mg-D3 400 Unit Sfgl] 1 cap PO DAILY 05/23/16 [History] Isosorbide Mononitrate [Imdur] 30 mg PO DAILY 05/23/16 [History] Levothyroxine [Synthroid] 75 mcg PO ACBREAKFAST 05/23/16 [History] carvediloL [Carvedilol] 3.125 mg PO BEDTIME 05/23/16 [History] Baclofen 10 mg PO QPM PRN 10/15/16 [History] Cyanocobalamin (Vitamin B-12) [B-12] 1 tab PO DAILY 10/15/16 [History] Polyethylene Glycol 3350 [MiraLAX] 17 gram PO DAILY 10/15/16 [History] Acetaminophen [Tylenol] 650 mg PO BID 01/12/17 [History] Acetaminophen [Tylenol] 650 mg PO Q6H PRN 01/12/17 [History] Albuterol Sulfate [Proair Hfa] 1 puff INH BID 01/12/17 [History] Mirtazapine [Remeron] 15 mg PO BEDTIME 01/12/17 [History] Warfarin [Coumadin] 2 mg PO SUMOTUWETHSA 01/12/17 [History] Warfarin [Coumadin] 4 mg PO FR 01/12/17 [History] fentaNYL [Fentanyl] 12 mcg TOP Q72H 01/12/17 [History] ondansetron HCL [Zofran] 8 mg PO BIDMEALS 01/12/17 [History] ARIPiprazole [Abilify] 5 mg PO DAILY 12/07/20 [History] Denosumab [Prolia] 1 dose SUBCUT ASDIRECTED 12/07/20 [History] Dorzolamide [Trusopt 2% Ophth Soln] 1 drop EYEBOTH BID 12/07/20 [History] FLUoxetine [PROzac] 40 mg PO QPM 12/07/20 [History] Famotidine 20 mg PO DAILY 12/07/20 [History] Furosemide [Lasix] 80 mg PO DAILY 12/07/20 [History] Lactobacillus Acidophilus [Acidophilus Probiotic] 1 tab PO DAILY 12/07/20 [History] Latanoprost/Pf [Latanoprost 0.005% Eye Drop] 1 drop EYEBOTH BEDTIME 12/07/20 [History] Nystatin [Nyata] 1 dose TOP BID 12/07/20 [History] Omeprazole 20 mg PO DAILY 12/07/20 [History] Potassium Chloride [Klor-Con 10] 20 meq PO DAILY 12/07/20 [History] Pramipexole Di-HCl [Pramipexole Dihydrochloride] 0.25 mg PO BEDTIME 12/07/20 [History] Sennosides [Mila-Jamir] 2 tab PO BEDTIME 12/07/20 [History] Trolamine Salicylate [Sportscreme 10%] 1 applic TOP QID 12/07/20 [History] atorvaSTATin [Lipitor] 40 mg PO BEDTIME 12/07/20 [History] Past Medical History HEENT History: Reports: Allergic Rhinitis, Glaucoma, Impaired Vision Cardiovascular History: Reports: Afib, CAD, Heart Failure, High Cholesterol, Pacemaker, Stents, Other (See Below) Other Cardiovascular History: Pace maker and 2 stents; 3rd degree av block Respiratory History: Reports: Asthma, COPD, Sleep Apnea Other Respiratory History: Wears C-pap at night Gastrointestinal History: Reports: GERD Other Gastrointestinal History: Patient has gallstones, Dysphagia, gastirc ulcer with hemorrhage Genitourinary History: Reports: None 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: Reports: None Musculoskeletal History: Reports: Osteoporosis Other Musculoskeletal History: spine fusion, compression fracture, post laminectomy syndrome, R hip bursitis, low back pain, restless leg sydrome, muscle weakness Neurological History: Reports: Alzheimers Disease, Parkinson's Other Neuro History: restless leg syndrome, spinal fusion, parkinsons disease, spinal stenosis Psychiatric History: Reports: Depression Other Psychiatric History: cognitive communication deficit, insomnia Endocrine/Metabolic History: Reports: Diabetes, Type II, Hypothyroidism, Obesity/BMI 30+ Hematologic History: Reports: Other (See Below) Other Hematologic History: hypokalemia Immunologic History: Reports: None Oncologic (Cancer) History: Reports: None Other Dermatologic History: HX of yeast infections - Infectious Disease History Infectious Disease History: Reports: Chicken Pox, Measles, Mumps - Past Surgical History Cardiovascular Surgical History: Reports: Coronary Artery Stent, Pacer GI Surgical History: Reports: Colonoscopy, EGD, Hernia Repair/Other, Ela Fundoplication Female Surgical History: Reports: None Neurological Surgical History: Reports: Lumbar Spine Musculoskeletal Surgical History: Reports: Other (See Below) Other Musculoskeletal Surgeries/Procedures:: revised lumbar surgery in November 2016 in [place] Social & Family History - Family History Family Medical History: No Pertinent Family History - Tobacco Use Tobacco Use Status *Q: Never Tobacco User - Caffeine Use Caffeine Use: Reports: Soda - Recreational Drug Use Recreational Drug Use: No - Living Situation & Occupation Living situation: Reports: Occupation: Retired H&P Review of Systems - Review of Systems: Review Of Systems: See Below General: Reports: No Symptoms. Denies: Fever, Chills, Malaise, Weakness, Fatigue HEENT: Reports: No Symptoms. Denies: Headaches, Sore Throat Pulmonary: Reports: No Symptoms. Denies: Shortness of Breath, Wheezing, Pleuritic Chest Pain, Cough, Sputum Cardiovascular: Reports: No Symptoms. Denies: Chest Pain, Palpitations, Dyspnea on Exertion, Edema Gastrointestinal: Reports: No Symptoms. Denies: Abdominal Pain, Constipation, Diarrhea, Nausea, Vomiting Genitourinary: Reports: No Symptoms. Denies: Pain Musculoskeletal: Reports: Back Pain (chronic ), Leg Pain (left ), Joint Pain (left hip ) Skin: Reports: No Symptoms. Denies: Cyanosis Psychiatric: Reports: No Symptoms. Denies: Confusion Neurological: Reports: Difficulty Walking, Gait Disturbance. Denies: Confusion, Dizziness, Headache, Numbness, Pre-Existing Deficit, Seizure, Syncope, Tingling, Tremors, Trouble Speaking, Weakness, Change in Speech Hematologic/Lymphatic: Reports: No Symptoms Immunologic: Reports: No Symptoms Exam - Exam Exam: See Below - Vital Signs Vital Signs: Last Vital Signs Temp 97.8 F 12/07/20 07:10 Pulse 70 12/07/20 07:10 Resp 16 12/07/20 07:10 BP 112/59 L 12/07/20 07:10 Pulse Ox 96 12/07/20 07:10 Weight: 170 lb - Exam Quality Assessment: DVT Prophylaxis. No: Supplemental Oxygen, Urinary Catheter General: Alert, Oriented, Cooperative. No: Mild Distress (moderate pelvic pain with movement - no pain when laying down) HEENT: Conjunctiva Clear, EACs Clear, Mucosa Moist & [place], Posterior Pharynx Clear Neck: Supple, Trachea Midline Lungs: Clear to Auscultation, Normal Respiratory Effort Cardiovascular: Regular Rate, Regular Rhythm GI/Abdominal Exam: Normal Bowel Sounds, Soft, Non-Tender, No Distention (Female) Exam: Deferred Rectal (Female) Exam: Deferred Extremities: No Pedal Edema, Leg Pain (left ), Limited Range of Motion (2/2 pain on left side of pelvis ), Other (Left leg is mildy shorter ) Peripheral Pulses: 2+: Radial (L), Radial (R), Dorsalis Pedis (L), Dorsalis Pedis (R) Skin: Warm, Dry, Intact Neurological: Cranial Nerves Intact (Grossly ) Neuro Extensive - Mental Status: Alert, Oriented x3 - Patient Data Lab Results Last 24 hrs: Laboratory Results - last 24 hr 12/06/20 12/06/20 12/06/20 Range/Units 23:20 23:20 23:20 WBC 7.57 (3.98-10.04) K/mm3 RBC 4.00 (3.98-5.22) M/mm3 Hgb 12.9 (11.2-15.7) gm/dl Hct 41.0 (34.1-44.9) % MCV 102.5 H (79.4-94.8) fl MCH 32.3 H (25.6-32.2) pg MCHC 31.5 L (32.2-35.5) g/dl RDW Std Deviation 51.8 H (36.4-46.3) fL Plt Count 106 L (182-369) K/mm3 MPV 10.0 (9.4-12.3) fl Neut % (Auto) 73.9 H (34.0-71.1) % Lymph % (Auto) 16.5 L (19.3-51.7) % [place] % (Auto) 8.2 (4.7-12.5) % Eos % (Auto) 0.7 (0.7-5.8) Baso % (Auto) 0.4 (0.1-1.2) % Neut # (Auto) 5.60 (1.56-6.13) K/mm3 Lymph # (Auto) 1.25 (1.18-3.74) K/mm3 [place] # (Auto) 0.62 H (0.24-0.36) K/mm3 Eos # (Auto) 0.05 (0.04-0.36) K/mm3 Baso # (Auto) 0.03 (0.01-0.08) K/mm3 PT 16.1 H (9.7-12.0) SECONDS INR 1.52 Sodium 143 (136-145) mEq/L Potassium 3.8 (3.5-5.1) mEq/L Chloride 105 (98-107) mEq/L Carbon Dioxide 26 (21-32) mEq/L Anion Gap 15.8 H (5-15) BUN 32 H (7-18) mg/dL Creatinine 1.7 H (0.55-1.02) mg/dL Est Cr Clr Drug Dosing 25.73 mL/min Estimated GFR (MDRD) 29 (>60) mL/min BUN/Creatinine Ratio 18.8 H (14-18) Glucose 114 H (70-99) mg/dL Calcium 8.5 (8.5-10.1) mg/dL Total Bilirubin 1.5 H (0.2-1.0) mg/dL AST 71 H (15-37) U/L ALT 21 (14-59) U/L Alkaline Phosphatase 63 (46-116) U/L Total Protein 6.8 (6.4-8.2) g/dl Albumin 3.4 (3.4-5.0) g/dl Globulin 3.4 gm/dL Albumin/Globulin Ratio 1.0 (1-2) SARS-CoV-2 RNA (AURELIANO) (NEGATIVE) 12/07/20 Range/Units 05:38 WBC (3.98-10.04) K/mm3 RBC (3.98-5.22) M/mm3 Hgb (11.2-15.7) gm/dl Hct (34.1-44.9) % MCV (79.4-94.8) fl MCH (25.6-32.2) pg MCHC (32.2-35.5) g/dl RDW Std Deviation (36.4-46.3) fL Plt Count (182-369) K/mm3 MPV (9.4-12.3) fl Neut % (Auto) (34.0-71.1) % Lymph % (Auto) (19.3-51.7) % [place] % (Auto) (4.7-12.5) % Eos % (Auto) (0.7-5.8) Baso % (Auto) (0.1-1.2) % Neut # (Auto) (1.56-6.13) K/mm3 Lymph # (Auto) (1.18-3.74) K/mm3 [place]key # (Auto) (0.24-0.36) K/mm3 Eos # (Auto) (0.04-0.36) K/mm3 Baso # (Auto) (0.01-0.08) K/mm3 PT (9.7-12.0) SECONDS INR Sodium (136-145) mEq/L Potassium (3.5-5.1) mEq/L Chloride (98-107) mEq/L Carbon Dioxide (21-32) mEq/L Anion Gap (5-15) BUN (7-18) mg/dL Creatinine (0.55-1.02) mg/dL Est Cr Clr Drug Dosing mL/min Estimated GFR (MDRD) (>60) mL/min BUN/Creatinine Ratio (14-18) Glucose (70-99) mg/dL Calcium (8.5-10.1) mg/dL Total Bilirubin (0.2-1.0) mg/dL AST (15-37) U/L ALT (14-59) U/L Alkaline Phosphatase (46-116) U/L Total Protein (6.4-8.2) g/dl Albumin (3.4-5.0) g/dl Globulin gm/dL Albumin/Globulin Ratio (1-2) SARS-CoV-2 RNA (AURELIANO) Negative (NEGATIVE) Result Diagrams: 12/06/20 23:20 12/06/20 23:20 Sepsis Event Note - Evaluation Sepsis Screening Result: No Definite Risk - Focused Exam Vital Signs: Vital Signs Temp Pulse Resp BP Pulse Ox 12/07/20 07:10 97.8 F 70 16 112/59 L 96 12/06/20 23:07 97.5 F 70 20 127/66 95 - Problem List (1) Fall SNOMED Code(s): 2069024, 853704376 ICD Code: W19.XXXA - UNSPECIFIED FALL, INITIAL ENCOUNTER Status: Acute Priority: High Current Visit: Yes Qualifiers: Encounter type: initial encounter Qualified Code(s): W19.XXXA - Unspecified fall, initial encounter (2) Fracture of left inferior pubic ramus SNOMED Code(s): 998059854 ICD Code: S32.592A - OTH FRACTURE OF LEFT PUBIS, INIT ENCNTR FOR CLOSED FRACTURE Status: Acute Priority: High Current Visit: Yes Qualifiers: Encounter type: initial encounter Fracture type: closed Qualified Code(s): S32.592A - Other specified fracture of left pubis, initial encounter for closed fracture (3) Fracture of superior ramus of left pubis SNOMED Code(s): 219098541 ICD Code: S32.512A - FRACTURE OF SUPERIOR RIM OF LEFT PUBIS, INIT FOR CLOS FX Status: Acute Priority: High Current Visit: Yes Qualifiers: Encounter type: initial encounter Fracture type: closed Qualified Code(s): S32.512A - Fracture of superior rim of left pubis, initial encounter for closed fracture (4) A-fib SNOMED Code(s): 20148090 ICD Code: I48.91 - UNSPECIFIED ATRIAL FIBRILLATION Status: Chronic Priority: Medium Current Visit: No Qualifiers: Atrial fibrillation type: unspecified Qualified Code(s): I48.91 - Unspecified atrial fibrillation (5) CAD (coronary artery disease) SNOMED Code(s): 01000184 ICD Code: I25.10 - ATHSCL HEART DISEASE OF [place] CORONARY ARTERY W/O ANG PCTRS Status: Chronic Priority: Medium Current Visit: No Qualifiers: Coronary Disease-Associated Artery/Lesion type: unspecified vessel or lesion type [place] vs. transplanted heart: [place] heart Associated angina: unspecified whether angina present Qualified Code(s): I25.10 - Atherosclerotic heart disease of [place] coronary artery without angina pectoris (6) CHF (congestive heart failure) SNOMED Code(s): 74931521 ICD Code: I50.9 - HEART FAILURE, UNSPECIFIED Status: Chronic Priority: Medium Current Visit: No Qualifiers: Heart failure type: unspecified Heart failure chronicity: unspecified Qualified Code(s): I50.9 - Heart failure, unspecified (7) HLD (hyperlipidemia) SNOMED Code(s): 86316631 ICD Code: E78.5 - HYPERLIPIDEMIA, UNSPECIFIED Status: Chronic Priority: Low Current Visit: No Qualifiers: Hyperlipidemia type: unspecified Qualified Code(s): E78.5 - Hyperlipidemia, unspecified (8) Normally functioning cardiac pacemaker present SNOMED Code(s): 782736841, 945359919 ICD Code: Z95.0 - PRESENCE OF CARDIAC PACEMAKER Status: Chronic Priority: Low Current Visit: No (9) History of heart artery stent SNOMED Code(s): 653459577, 131801862 ICD Code: Z95.5 - PRESENCE OF CORONARY ANGIOPLASTY IMPLANT AND GRAFT Status: Chronic Priority: Low Current Visit: No (10) Asthma SNOMED Code(s): 968190303 ICD Code: J45.909 - UNSPECIFIED ASTHMA, UNCOMPLICATED Status: Chronic Priority: Medium Current Visit: No Qualifiers: Asthma severity: unspecified severity Asthma persistence: unspecified Asthma complication type: unspecified Qualified Code(s): J45.909 - Unspecified asthma, uncomplicated (11) COPD (chronic obstructive pulmonary disease) SNOMED Code(s): 79480991 ICD Code: J44.9 - CHRONIC OBSTRUCTIVE PULMONARY DISEASE, UNSPECIFIED Status: Chronic Priority: Medium Current Visit: No Qualifiers: COPD type: unspecified COPD Qualified Code(s): J44.9 - Chronic obstructive pulmonary disease, unspecified (12) Obstructive sleep apnea treated with continuous positive airway pressure (CPAP) SNOMED Code(s): 06249790 ICD Code: G47.33 - OBSTRUCTIVE SLEEP APNEA (ADULT) (PEDIATRIC); Z99.89 - DEPENDENCE ON OTHER ENABLING MACHINES AND DEVICES Status: Chronic Priority: Medium Current Visit: Yes (13) GERD (gastroesophageal reflux disease) SNOMED Code(s): 169919010 ICD Code: K21.9 - GASTRO-ESOPHAGEAL REFLUX DISEASE WITHOUT ESOPHAGITIS Status: Chronic Priority: Low Current Visit: No Qualifiers: Esophagitis presence: esophagitis presence not specified Qualified Code(s): K21.9 - Gastro-esophageal reflux disease without esophagitis (14) Renal calculi SNOMED Code(s): 52411223 ICD Code: N20.0 - CALCULUS OF KIDNEY Status: Acute Current Visit: Yes (15) Dysphagia SNOMED Code(s): 00131164, 711371303 ICD Code: R13.10 - DYSPHAGIA, UNSPECIFIED Status: Chronic Priority: Low Current Visit: No (16) PUD (peptic ulcer disease) SNOMED Code(s): 80231932 ICD Code: K27.9 - PEPTIC ULC, SITE UNSP, UNSP AC OR CHR, W/O HEMOR OR PERF Status: Chronic Priority: Low Current Visit: No (17) Osteoporosis SNOMED Code(s): 13814905 ICD Code: M81.0 - AGE-RELATED OSTEOPOROSIS W/O CURRENT PATHOLOGICAL FRACTURE Status: Chronic Priority: Medium Current Visit: Yes Qualifiers: Osteoporosis type: unspecified Presence of current pathological fracture: without current pathological fracture Qualified Code(s): M81.0 - Age-related osteoporosis without current pathological fracture (18) Chronic low back pain SNOMED Code(s): 534519878 ICD Code: M54.5 - LOW BACK PAIN; G89.29 - OTHER CHRONIC PAIN Status: Chronic Priority: Low Current Visit: No Qualifiers: Back pain laterality: unspecified Sciatica presence: unspecified whether sciatica present Qualified Code(s): M54.5 - Low back pain; G89.29 - Other chr onic pain (19) RLS (restless legs syndrome) SNOMED Code(s): 63285788 ICD Code: G25.81 - RESTLESS LEGS SYNDROME Status: Chronic Priority: Low Current Visit: No (20) Post-laminectomy syndrome SNOMED Code(s): 87303241 ICD Code: M96.1 - POSTLAMINECTOMY SYNDROME, NOT ELSEWHERE CLASSIFIED Status: Chronic Priority: Low Current Visit: No (21) Alzheimer disease SNOMED Code(s): 19103106 ICD Code: G30.9 - ALZHEIMER'S DISEASE, UNSPECIFIED; F02.80 - DEMENTIA IN OTH DISEASES CLASSD ELSWHR W/O BEHAVRL DISTURB Status: Chronic Priority: Medium Current Visit: Yes (22) Parkinson disease SNOMED Code(s): 43787557 ICD Code: G20 - PARKINSON'S DISEASE Status: Chronic Priority: Medium Current Visit: Yes (23) Depression SNOMED Code(s): 95973407 ICD Code: F32.9 - MAJOR DEPRESSIVE DISORDER, SINGLE EPISODE, UNSPECIFIED Status: Chronic Priority: Low Current Visit: No Qualifiers: Depression Type: other depression Qualified Code(s): F32.89 - Other specified depressive episodes (24) Cognitive communication deficit SNOMED Code(s): 592697323927937 ICD Code: R41.841 - COGNITIVE COMMUNICATION DEFICIT Status: Chronic Priority: Low Current Visit: No (25) Insomnia SNOMED Code(s): 583478470 ICD Code: G47.00 - INSOMNIA, UNSPECIFIED Status: Chronic Priority: Low Current Visit: No Qualifiers: Insomnia type: unspecified Qualified Code(s): G47.00 - Insomnia, unspecified (26) Hypothyroidism SNOMED Code(s): 12127376 ICD Code: E03.9 - HYPOTHYROIDISM, UNSPECIFIED Status: Chronic Priority: Low Current Visit: No Qualifiers: Hypothyroidism type: unspecified Qualified Code(s): E03.9 - Hypothyroidism, unspecified (27) Hypokalemia SNOMED Code(s): 07793676 ICD Code: E87.6 - HYPOKALEMIA Status: Chronic Priority: Low Current Visit: No (28) Type 2 diabetes mellitus SNOMED Code(s): 12143747 ICD Code: E11.9 - TYPE 2 DIABETES MELLITUS WITHOUT COMPLICATIONS Status: Chronic Priority: Medium Current Visit: Yes Qualifiers: Diabetes mellitus snf insulin use: without oil heaterman use Diabetes mellitus complication status: with other specified complication Qualified Cod e(s): E11.69 - Type 2 diabetes mellitus with other specified complication (29) Renal failure SNOMED Code(s): 83188256 ICD Code: N19 - UNSPECIFIED KIDNEY FAILURE Status: Chronic Priority: Medium Current Visit: Yes Qualifiers: Renal failure chronicity: unspecified chronicity Qualified Code(s): N19 - Unspecified kidney failure (30) Hyperbilirubinemia SNOMED Code(s): 83307646 ICD Code: E80.6 - OTHER DISORDERS OF BILIRUBIN METABOLISM Status: Chronic Priority: Low Current Visit: No Problem List Initiated/Reviewed/Updated: Yes Orders Last 24hrs: Active Orders 24 hr Category Date Time Status Cardiac Monitoring [RC] . DIRECTED Care 12/06/20 23:11 Active Peripheral IV Care [RC] . DIRECTED Care 12/06/20 23:11 Active Head wo Cont [CT] Stat Exams 12/06/20 23:11 Taken Hip Min 2V or 3V w Pelvis Lt [CR] Stat Exams 12/06/20 23:12 Taken Pelvis wo Cont [CT] Stat Exams 12/07/20 00:47 Taken Sodium Chloride 0.9% [Saline Flush] Med 12/06/20 23:11 Active 10 ml FLUSH ASDIRECTED PRN Peripheral IV Insertion Adult [OM.PC] Stat Oth 12/06/20 23:11 Ordered Medication Orders Sodium Chloride (Sodium Chloride 0.9% 10 Ml Syringe) 10 ml FLUSH ASDIRECTED PRN PRN Reason: Keep Vein Open Assessment/Plan Comment:: Assessment - day of admission - 12/07/2020 * 75-year-old female who resides at [facility] presented to ED after a fall and subsequent left hip pain * Fall reportedly happened around 5 AM and patient was able to ambulate then. Now reports worsening pain and left leg is shorter. * Carries a history of: A. fib, CAD, CHF, HLD, pacemaker secondary to third- degree AV block, 2 stents placed, asthma, COPD, sleep apnea controlled with CPAP at night, GERD, renal calculi, dysphagia, PUD, osteoporosis, chronic low back pain, RLS, postlaminectomy syndrome, Alzheimer's disease, Parkinson's disease, depression, cognitive communication deficit, insomnia, type II DM, hypothyroidism, obesity, hypokalemia. * Labs in ED: * WBC 7.57. * Hemoglobin is 12.9. * Hematocrit 41.0. * Platelet 106,000. * INR is 1.52. * Sodium 143. * Potassium 3.8. * Chloride 105. * Carbon dioxide 26. * Anion gap is slightly elevated at 15.8. * BUN is 32. Creatinine 1.7. GFR is 29. * Glucose 114. * Total bilirubin 1.5. * AST 71, ALT 21, alkaline phosphatase 63. * Albumin is 3.4. * SARS-CoV-2 RNA is negative. * CT of the head is obtained showing atrophy and nonspecific chronic white matter change. There is no acute intracranial abnormality present. * Hip x-ray shows moderately displaced pubic rami fractures on the left. No proximal femoral fracture is identified. * CT of the pelvis shows a comminuted mildly displaced fracture of the superior and inferior pubic rami on the left with no evidence of pelvic mass or hematoma. * [facility] Dr. Salazar was contacted: Non-surgical. WBAT, Recommended admission for PT/OT and pain control. * Hospitals in [place] are reportedly full and the patient is subsequently admitted to our floor. PLAN: Fall Fracture of left inferior pubic ramus Fracture of superior ramus of left pubis Osteoporosis * PT/OT * CM/SW for placement * Pain medications as ordered * WBAT * Follow-up with orthopedics after discharge * Continue home bowel regimen A-fib Normally functioning cardiac pacemaker present * No acute concerns * Telemetry * Continue home mes as ordered * Continue warfarin with pharmacy to dose * Daily INR CAD (coronary artery disease) History of heart artery stent HLD (hyperlipidemia) CHF (congestive heart failure) * No acute concerns * Home meds as ordered Asthma COPD (chronic obstructive pulmonary disease) Obstructive sleep apnea treated with continuous positive airway pressure (CPAP) * Home respiratory meds as ordered * CPAP at night * IS * No acute concerns * DuoNeb nebulizer if needed GERD (gastroesophageal reflux disease) PUD (peptic ulcer disease) * No acute concerns * Home meds as ordered Renal calculi Renal failure * No acute concerns * Unsure if JANENE vs CKD * Obtain old lab report * IV fluids as ordered * Hold home lasix today Dysphagia * Monitor need for CADD OPERATOR evaluation * No acute concerns * On regular diet at [facility] Post-laminectomy syndrome Chronic low back pain * PT/OT * Pain medications as ordered * PRN home Baclofen RLS (restless legs syndrome) * No acute concerns * Home meds as ordered Alzheimer disease Parkinson disease Depression Cognitive communication deficit Insomnia * Let patient sleep protocol * No acute concerns * Home medications as ordered Hypothyroidism * Check TSH - WNL * Continue home levothyroxine Hypokalemia * No acute concerns * Monitor daily labs * Continue home supplementation Type 2 diabetes mellitus * Check A1C - 6.3% * No home meds * Monitor blood glucose daily * Diabetic diet Code status: Full code PCP: Dr. Segura DVT prophylaxis: Warfarin Social: Patient resides at [facility]. Will likely need SNF placement. Disposition: Patient admitted to the medical floor on telemetry for pain management and PT OT. Will likely require SNF placement. - Mortality Measure Prognosis:: Poor (Overall prognosis is poor given patient's significant list of chronic medical conditions and new difficulty with ambulation.)
--- NOTE | 2020-12-07 08:08 | CR ---
Pelvis and left hip: AP view of the pelvis was obtained as well as AP and crosstable lateral views of the left hip. Comparison: Prior left hip study of the 10/15/16 and AP pelvis study of 06/07/06. Findings: Prior lumbar spine surgery is seen. Surgical material for hernia repair is also noted. Joint space narrowing is noted within both hips. Fixation device and intramedullary deonte are seen within the left hip. There are fractures noted within the superior and inferior left pubic ramus. Bony structures are osteopenic. Impression: 1. Degenerative change as noted above. Prior surgery. 2. Osteopenia. 3. Fractures within the inferior and superior left pubic ramus. Diagnostic code #3
--- NOTE | 2020-12-07 08:22 | CT ---
Head CT Technique: Multiple axial sections through the brain were obtained. Intravenous contrast was not utilized. Reconstructed coronal and sagittal images were obtained. Comparison: Prior head CT exam of 11/08/17. Findings: Ventricles along with basal cisterns and sulci over the convexities are mildly prominent. Diminished density is noted within portions of the periventricular white matter as well as within the basal ganglia and subcortical white matter. These findings are compatible with small vessel ischemic demyelination change. Slight basal ganglia calcification is noted which is felt to be within normal limits. No evidence of intracranial hemorrhage. No midline shift or mass-effect is seen. Atherosclerotic change is seen within the vertebral vessels and within the carotid siphon. Bone window settings were reviewed. The visualized paranasal sinuses and mastoid sinuses show nothing acute. No acute calvarial abnormality is appreciated. Impression: 1. Stable senescent change as noted above. 2. Nothing acute is identified on noncontrast head CT exam. Diagnostic code #2 I agree with preliminary report from [facility], finalized on 12/07/20, 1:06 AM CDT, code 1
--- NOTE | 2020-12-07 08:27 | CT ---
CT pelvis Technique: Multiple axial sections were obtained from above the iliac crest inferiorly through the pubic symphysis. Intravenous contrast was not utilized. Study has been performed as a bone algorithm. Comparison: Prior plain film study performed on 12/06/20. Findings: Fracture is noted within the inferior left pubic ramus and superior pubic ramus close to the pubic symphysis. Superior left pubic ramus fracture shows displacement by about 6 mm. Bony structures are osteopenic. Degenerative change is noted within the sacroiliac joints and within the visualized lumbar spine. Artifact is noted within the lumbar spine from prior surgery. Artifact is also partially seen within the left hip from prior surgery. No additional fracture is seen. Impression: 1. Superior and inferior left pubic ramus fractures. Displacement up to 6 mm noted of the superior left pubic ramus fracture. 2. Prior surgery, degenerative change and osteopenia. Diagnostic code #3 I agree with preliminary report from [facility], finalized on 12/07/20, 4:37 AM CDT, code 1
[2020-12-07] MEDS ORDERED: Ondansetron 4 MG/2 ML SDV IV PRN (08:47)
[2020-12-07] MEDS ORDERED: Magnesium Hydroxide 400 MG/5 ML Susp 30 ML Cup PO PRN (08:47)
[2020-12-07] MEDS ORDERED: Acetaminophen 325 MG Tab PO PRN (08:47)
[2020-12-07] MEDS ORDERED: Docusate Sodium 100 MG Cap PO SCH (09:00)
[2020-12-07 09:30] LABS: HEMOGLOBIN A1C 6.3 %
[2020-12-07] MEDS ORDERED: Acetaminophen/HYDROcodone 325-5 MG Tab PO PRN (09:44)
[2020-12-07] MEDS ORDERED: Morphine 2 MG/ML SYRINGE IVPUSH PRN (09:45)
[2020-12-07] MEDS ORDERED: Albuterol/Ipratropium 3.0-0.5 MG/3 ML Neb Soln NEB PRN (10:20)
[2020-12-07] MEDS ORDERED: Sodium Chloride 0.9% 1,000 ML IV SCH (10:30)
[2020-12-07] MEDS ORDERED: fentaNYL 12 MCG/HR Transdermal Patch TRDERM SCH (10:45)
[2020-12-07] MEDS ORDERED: Famotidine 20 MG Tab PO SCH ×2 (11:00→18:00)
[2020-12-07] MEDS ORDERED: ARIPiprazole 5 MG Tab PO SCH (11:00)
[2020-12-07] MEDS: Polyethylene Glycol 3350 Powder 17 GM Packet PO SCH (11:08)
[2020-12-07] MEDS: Dorzolamide 2% Ophth Soln 10 ML Bottle EYEBOTH SCH ×2 (11:08→20:56)
[2020-12-07] MEDS: Trolamine Salicylate/Aloe Vera 10% Crm 85 GM Tube TOP SCH ×3 (14:53→20:55)
[2020-12-07] MEDS: ONDANSETRON 8 MG PO SCH (16:59)
[2020-12-07] MEDS ORDERED: Ondansetron 4 MG Tab.DIS PO SCH (17:00)
[2020-12-07] MEDS ORDERED: FLUOXETINE 40 MG PO SCH (18:00)
[2020-12-07] MEDS ORDERED: Carvedilol 3.125 MG Tab PO SCH (18:00)
[2020-12-07] MEDS ORDERED: Warfarin 4 MG Tab PO SCH (18:00)
[2020-12-07 20:33] VITALS: PULSE 70
[2020-12-07] MEDS: Albuterol 6.7 GM Inhaler INH SCH (20:37)
[2020-12-07] MEDS: Acetaminophen 325 MG Tab PO SCH (20:56)
[2020-12-07] MEDS: Nystatin Topical Powder 15 GM Bottle TOP SCH (20:56)
[2020-12-07] MEDS: Carbidopa/Levodopa 10-100 MG Tab PO SCH (20:56)
[2020-12-07] MEDS ORDERED: Latanoprost 0.005% Ophth Soln 2.5 ML Bottle EYEBOTH SCH (21:00)
[2020-12-07] MEDS ORDERED: Sennosides 8.6 MG Tab PO SCH (21:00)
[2020-12-07] MEDS ORDERED: Pramipexole 0.25 MG Tab PO SCH (21:00)
[2020-12-07] MEDS ORDERED: atorvaSTATin 40 MG Tab PO SCH (21:00)
[2020-12-07] MEDS ORDERED: Baclofen 10 MG Tab PO SCH (21:00)
[2020-12-07] MEDS ORDERED: Mirtazapine 15 MG Tab PO SCH (21:00)
[2020-12-08] MEDS ORDERED: Levothyroxine 75 MCG Tab PO SCH (06:00)
[2020-12-08] MEDS: ONDANSETRON 8 MG PO SCH (06:11)
--- NOTE | 2020-12-08 07:55 | PCM.PN ---
- General Info Date of Service: 12/08/20 Admission Dx/Problem (Free Text): Pelvic rami fracture - Patient Data Vitals - Most Recent: Last Vital Signs Temp 98.1 F 12/08/20 02:37 Pulse 70 12/08/20 02:37 Resp 18 12/08/20 02:37 BP 131/97 H 12/08/20 02:37 Pulse Ox 95 12/08/20 02:37 Weight - Most Recent: 155 lb 9.6 oz I&O - Last 24 Hours: Intake & Output 12/07/20 12/08/20 12/08/20 22:59 06:59 14:59 Intake Total 800 690 Output Total 375 Balance 800 315 Lab Results Last 24 Hours: Laboratory Results - last 24 hr 12/06/20 12/06/20 12/08/20 Range/Units 23:20 23:20 06:05 WBC 4.90 (3.98-10.04) K/mm3 RBC 3.73 L (3.98-5.22) M/mm3 Hgb 11.7 (11.2-15.7) gm/dl Hct 38.6 (34.1-44.9) % MCV 103.5 H (79.4-94.8) fl MCH 31.4 (25.6-32.2) pg MCHC 30.3 L (32.2-35.5) g/dl RDW Std Deviation 53.9 H (36.4-46.3) fL Plt Count 122 L (182-369) K/mm3 MPV 10.1 (9.4-12.3) fl Neut % (Auto) 58.3 (34.0-71.1) % Lymph % (Auto) 29.0 (19.3-51.7) % [place] % (Auto) 9.0 (4.7-12.5) % Eos % (Auto) 3.3 (0.7-5.8) Baso % (Auto) 0.4 (0.1-1.2) % Neut # (Auto) 2.86 (1.56-6.13) K/mm3 Lymph # (Auto) 1.42 (1.18-3.74) K/mm3 [place] # (Auto) 0.44 H (0.24-0.36) K/mm3 Eos # (Auto) 0.16 (0.04-0.36) K/mm3 Baso # (Auto) 0.02 (0.01-0.08) K/mm3 PT (9.7-12.0) SECONDS INR Sodium (136-145) mEq/L Potassium (3.5-5.1) mEq/L Chloride (98-107) mEq/L Carbon Dioxide (21-32) mEq/L Anion Gap (5-15) BUN (7-18) mg/dL Creatinine (0.55-1.02) mg/dL Est Cr Clr Drug Dosing mL/min Estimated GFR (MDRD) (>60) mL/min BUN/Creatinine Ratio (14-18) Glucose (70-99) mg/dL Hemoglobin A1c 6.3 H ( - 5.6) % Calcium (8.5-10.1) mg/dL Magnesium (1.8-2.4) mg/dL Total Bilirubin (0.2-1.0) mg/dL AST (15-37) U/L ALT (14-59) U/L Alkaline Phosphatase (46-116) U/L Total Protein (6.4-8.2) g/dl Albumin (3.4-5.0) g/dl Globulin gm/dL Albumin/Globulin Ratio (1-2) TSH 3rd Generation 1.218 (0.358-3.74) uIU/mL 12/08/20 12/08/20 Range/Units 06:05 06:05 WBC (3.98-10.04) K/mm3 RBC (3.98-5.22) M/mm3 Hgb (11.2-15.7) gm/dl Hct (34.1-44.9) % MCV (79.4-94.8) fl MCH (25.6-32.2) pg MCHC (32.2-35.5) g/dl RDW Std Deviation (36.4-46.3) fL Plt Count (182-369) K/mm3 MPV (9.4-12.3) fl Neut % (Auto) (34.0-71.1) % Lymph % (Auto) (19.3-51.7) % [place] % (Auto) (4.7-12.5) % Eos % (Auto) (0.7-5.8) Baso % (Auto) (0.1-1.2) % Neut # (Auto) (1.56-6.13) K/mm3 Lymph # (Auto) (1.18-3.74) K/mm3 [place] # (Auto) (0.24-0.36) K/mm3 Eos # (Auto) (0.04-0.36) K/mm3 Baso # (Auto) (0.01-0.08) K/mm3 PT 18.7 H (9.7-12.0) SECONDS INR 1.77 Sodium 142 (136-145) mEq/L Potassium 3.9 (3.5-5.1) mEq/L Chloride 107 (98-107) mEq/L Carbon Dioxide 28 (21-32) mEq/L Anion Gap 10.9 (5-15) BUN 25 H (7-18) mg/dL Creatinine 1.2 H (0.55-1.02) mg/dL Est Cr Clr Drug Dosing 36.45 mL/min Estimated GFR (MDRD) 44 (>60) mL/min BUN/Creatinine Ratio 20.8 H (14-18) Glucose 91 (70-99) mg/dL Hemoglobin A1c ( - 5.6) % Calcium 7.7 L (8.5-10.1) mg/dL Magnesium 2.1 (1.8-2.4) mg/dL Total Bilirubin 1.0 (0.2-1.0) mg/dL AST 52 H (15-37) U/L ALT 20 (14-59) U/L Alkaline Phosphatase 51 (46-116) U/L Total Protein 5.7 L (6.4-8.2) g/dl Albumin 2.6 L (3.4-5.0) g/dl Globulin 3.1 gm/dL Albumin/Globulin Ratio 0.8 L (1-2) TSH 3rd Generation (0.358-3.74) uIU/mL Med Orders - Current: Current Medications Acetaminophen (Acetaminophen 325 Mg Tab) 650 mg PO Q4H PRN PRN Reason: Pain (Mild 1-3)/fever Acetaminophen (Acetaminophen 325 Mg Tab) 650 mg PO BID JOSE LUIS Last Admin: 12/07/20 20:56 Dose: 650 mg Documented by: Hydrocodone Bitart/Acetaminophen (Acetaminophen/Hydrocodone 325-5 Mg Tab) 1 tab PO Q6H PRN PRN Reason: Pain (moderate 4-6) Albuterol (Albuterol 6.7 Gm Inhaler) 0 gm INH BID [facility] Last Admin: 12/07/20 20:37 Dose: 2 inhalation Documented by: Albuterol/Ipratropium (Albuterol/Ipratropium 3.0-0.5 Mg/3 Ml Neb Soln) 3 ml NEB QIDRT PRN PRN Reason: Shortness of Breath Aripiprazole (Aripiprazole 5 Mg Tab) 5 mg PO DAILY [facility] Atorvastatin Calcium (Atorvastatin 40 Mg Tab) 40 mg PO BEDTIME [facility] Last Admin: 12/07/20 20:56 Dose: 40 mg Documented by: Baclofen (Baclofen 10 Mg Tab) 10 mg PO BEDTIME [facility] Last Admin: 12/07/20 20:56 Dose: 10 mg Documented by: Calcium Carbonate (Calcium Carbonate/Vitamin D3 600 Mg-200 Units Tab) 1 tab PO DAILY [facility] Carbidopa/Levodopa (Carbidopa/Levodopa 10-100 Mg Tab) 1 tab PO BID [facility] Last Admin: 12/07/20 20:56 Dose: 1 tab Documented by: Carvedilol (Carvedilol 3.125 Mg Tab) 3.125 mg PO QPM [facility] Last Admin: 12/07/20 17:00 Dose: 3.125 mg Documented by: Cyanocobalamin (Cyanocobalamin (Vitamin B12) 1,000 Mcg Tab) 1,000 mcg PO DAILY [facility] Dorzolamide HCl (Dorzolamide 2% Ophth Soln 10 Ml Bottle) 0 ml EYEBOTH BID [facility] Last Admin: 12/07/20 20:56 Dose: 1 drop Documented by: Famotidine (Famotidine 20 Mg Tab) 20 mg PO QPM [facility] Last Admin: 12/07/20 17:02 Dose: 20 mg Documented by: Fentanyl (Fentanyl 12 Mcg/Hr Transdermal Patch) 12 mcg TRDERM Q72H [facility] Last Admin: 12/07/20 11:28 Dose: 12 mcg Documented by: Furosemide (Furosemide 40 Mg Tab) 40 mg PO 1200 [facility] Furosemide (Furosemide 80 Mg Tab) 80 mg PO DAILY [facility] Isosorbide Mononitrate (Isosorbide Mononitrate 30 Mg Tab.Er) 30 mg PO DAILY [facility] Latanoprost (Latanoprost 0.005% Ophth Soln 2.5 Ml Bottle) 0 ml EYEBOTH BEDTIME [facility] Last Admin: 12/07/20 20:57 Dose: 1 drop Documented by: Levothyroxine Sodium (Levothyroxine 75 Mcg Tab) 75 mcg PO ACBREAKFAST [facility] Last Admin: 12/08/20 06:11 Dose: 75 mcg Documented by: Magnesium Hydroxide (Magnesium Hydroxide 400 Mg/5 Ml Susp 30 Ml Cup) 30 ml PO Q12H PRN PRN Reason: Constipation Mirtazapine (Mirtazapine 15 Mg Tab) 15 mg PO BEDTIME [facility] Last Admin: 12/07/20 20:56 Dose: 15 mg Documented by: Miscellaneous Information (Remove Old Fentanyl Patch) 0 ea TRDERM Q72H [facility] Morphine Sulfate (Morphine 2 Mg/Ml Syringe) 1 mg IVPUSH Q2H PRN PRN Reason: SEVERE PAIN (7-10) Fluoxetine 40mg Pt's (Own Med) 0 each PO QPM [facility] Last Admin: 12/07/20 17:01 Dose: 40 each Documented by: Ondansetron 8mg Pt's (Own Med) 0 each PO BIDMEALS [facility] Last Admin: 12/08/20 06:11 Dose: 1 each Documented by: Nystatin (Nystatin Topical Powder 15 Gm Bottle) 0 gm TOP BID [facility] Last Admin: 12/07/20 20:56 Dose: 1 applic Documented by: Omeprazole (Omeprazole 20 Mg Cap.Cr) 20 mg PO DAILY [facility] Ondansetron HCl (Ondansetron 4 Mg/2 Ml Sdv) 4 mg IV Q6H PRN PRN Reason: Nausea/Vomiting Polyethylene Glycol (Polyethylene Glycol 3350 Powder 17 Gm Packet) 17 gm PO DAILY [facility] Last Admin: 12/07/20 11:08 Dose: 17 gm Documented by: Potassium Chloride (Potassium Chloride 10 Meq Tab.Er) 20 meq PO DAILY [facility] Pramipexole Dihydrochloride (Pramipexole 0.25 Mg Tab) 0.25 mg PO BEDTIME [facility] Last Admin: 12/07/20 20:56 Dose: 0.25 mg Documented by: Saccharomyces Boulardii (Saccharomyces Boulardii (Probiotic) 250 Mg Cap) 250 mg PO DAILY [facility] Senna (Sennosides 8.6 Mg Tab) 17.2 mg PO BEDTIME [facility] Last Admin: 12/07/20 20:56 Dose: 17.2 mg Documented by: Sodium Chloride (Sodium Chloride 0.9% 10 Ml Syringe) 10 ml FLUSH ASDIRECTED PRN PRN Reason: Keep Vein Open Last Admin: 12/07/20 08:15 Dose: 10 ml Documented by: Trolamine Salicylate (Trolamine Salicylate/Aloe Vera 10% Crm 85 Gm Tube) 0 gm TOP QID [facility] Last Admin: 12/07/20 20:55 Dose: 85 gm Documented by: Warfarin Sodium (Pharmacy To Dose - Warfarin) 1 dose .XX ASDIRECTED PRN PRN Reason: RX TO DOSE WARFARIN Discontinued Medications Aripiprazole (Aripiprazole 5 Mg Tab) 5 mg PO DAILY [facility] Last Admin: 12/07/20 11:08 Dose: 5 mg Documented by: Docusate Sodium (Docusate Sodium 100 Mg Cap) 100 mg PO BID [facility] Last Admin: 12/07/20 09:59 Dose: 100 mg Documented by: Famotidine (Famotidine 20 Mg Tab) 20 mg PO DAILY [facility] Last Admin: 12/07/20 11:08 Dose: 20 mg Documented by: Sodium Chloride (Normal Saline) 1,000 mls @ 50 mls/hr IV ASDIRECTED [facility] Stop: 12/08/20 06:29 Last Admin: 12/07/20 17:46 Dose: 50 mls/hr Documented by: Miscellaneous Information (Remove Old Fentanyl Patch) 0 ea TRDERM Q72H [facility] Ondansetron HCl (Ondansetron 4 Mg Tab.Dis) 8 mg PO BIDMEALS [facility] Warfarin Sodium (Warfarin 4 Mg Tab) 4 mg PO QPM [facility] Stop: 12/07/20 18:01 Last Admin: 12/07/20 17:00 Dose: 4 mg Documented by: - Patient Data Lab Results Last 24 hrs: Laboratory Results - last 24 hr 12/06/20 12/06/20 12/08/20 Range/Units 23:20 23:20 06:05 WBC 4.90 (3.98-10.04) K/mm3 RBC 3.73 L (3.98-5.22) M/mm3 Hgb 11.7 (11.2-15.7) gm/dl Hct 38.6 (34.1-44.9) % MCV 103.5 H (79.4-94.8) fl MCH 31.4 (25.6-32.2) pg MCHC 30.3 L (32.2-35.5) g/dl RDW Std Deviation 53.9 H (36.4-46.3) fL Plt Count 122 L (182-369) K/mm3 MPV 10.1 (9.4-12.3) fl Neut % (Auto) 58.3 (34.0-71.1) % Lymph % (Auto) 29.0 (19.3-51.7) % [place] % (Auto) 9.0 (4.7-12.5) % Eos % (Auto) 3.3 (0.7-5.8) Baso % (Auto) 0.4 (0.1-1.2) % Neut # (Auto) 2.86 (1.56-6.13) K/mm3 Lymph # (Auto) 1.42 (1.18-3.74) K/mm3 [place] # (Auto) 0.44 H (0.24-0.36) K/mm3 Eos # (Auto) 0.16 (0.04-0.36) K/mm3 Baso # (Auto) 0.02 (0.01-0.08) K/mm3 PT (9.7-12.0) SECONDS INR Sodium (136-145) mEq/L Potassium (3.5-5.1) mEq/L Chloride (98-107) mEq/L Carbon Dioxide (21-32) mEq/L Anion Gap (5-15) BUN (7-18) mg/dL Creatinine (0.55-1.02) mg/dL Est Cr Clr Drug Dosing mL/min Estimated GFR (MDRD) (>60) mL/min BUN/Creatinine Ratio (14-18) Glucose (70-99) mg/dL Hemoglobin A1c 6.3 H ( - 5.6) % Calcium (8.5-10.1) mg/dL Magnesium (1.8-2.4) mg/dL Total Bilirubin (0.2-1.0) mg/dL AST (15-37) U/L ALT (14-59) U/L Alkaline Phosphatase (46-116) U/L Total Protein (6.4-8.2) g/dl Albumin (3.4-5.0) g/dl Globulin gm/dL Albumin/Globulin Ratio (1-2) TSH 3rd Generation 1.218 (0.358-3.74) uIU/mL 12/08/20 12/08/20 Range/Units 06:05 06:05 WBC (3.98-10.04) K/mm3 RBC (3.98-5.22) M/mm3 Hgb (11.2-15.7) gm/dl Hct (34.1-44.9) % MCV (79.4-94.8) fl MCH (25.6-32.2) pg MCHC (32.2-35.5) g/dl RDW Std Deviation (36.4-46.3) fL Plt Count (182-369) K/mm3 MPV (9.4-12.3) fl Neut % (Auto) (34.0-71.1) % Lymph % (Auto) (19.3-51.7) % [place] % (Auto) (4.7-12.5) % Eos % (Auto) (0.7-5.8) Baso % (Auto) (0.1-1.2) % Neut # (Auto) (1.56-6.13) K/mm3 Lymph # (Auto) (1.18-3.74) K/mm3 [place] # (Auto) (0.24-0.36) K/mm3 Eos # (Auto) (0.04-0.36) K/mm3 Baso # (Auto) (0.01-0.08) K/mm3 PT 18.7 H (9.7-12.0) SECONDS INR 1.77 Sodium 142 (136-145) mEq/L Potassium 3.9 (3.5-5.1) mEq/L Chloride 107 (98-107) mEq/L Carbon Dioxide 28 (21-32) mEq/L Anion Gap 10.9 (5-15) BUN 25 H (7-18) mg/dL Creatinine 1.2 H (0.55-1.02) mg/dL Est Cr Clr Drug Dosing 36.45 mL/min Estimated GFR (MDRD) 44 (>60) mL/min BUN/Creatinine Ratio 20.8 H (14-18) Glucose 91 (70-99) mg/dL Hemoglobin A1c ( - 5.6) % Calcium 7.7 L (8.5-10.1) mg/dL Magnesium 2.1 (1.8-2.4) mg/dL Total Bilirubin 1.0 (0.2-1.0) mg/dL AST 52 H (15-37) U/L ALT 20 (14-59) U/L Alkaline Phosphatase 51 (46-116) U/L Total Protein 5.7 L (6.4-8.2) g/dl Albumin 2.6 L (3.4-5.0) g/dl Globulin 3.1 gm/dL Albumin/Globulin Ratio 0.8 L (1-2) TSH 3rd Generation (0.358-3.74) uIU/mL Result Diagrams: 12/08/20 06:05 12/08/20 06:05 Sepsis Event Note - Evaluation Sepsis Screening Result: No Definite Risk - Focused Exam Vital Signs: Vital Signs Temp Pulse Resp BP Pulse Ox Pulse Ox 12/08/20 02:37 98.1 F 70 18 131/97 H 95 12/07/20 20:38 93 L 12/07/20 20:28 98.2 F 70 20 112/55 L 91 L - Problem List & Annotations (1) Fall SNOMED Code(s): 8675549, 058824389 Code(s): W19.XXXA - UNSPECIFIED FALL, INITIAL ENCOUNTER Status: Acute Priority: High Current Visit: Yes Qualifiers: Encounter type: initial encounter Qualified Code(s): W19.XXXA - Unspecified fall, initial encounter (2) Fracture of left inferior pubic ramus SNOMED Code(s): 765016169 Code(s): S32.592A - OTH FRACTURE OF LEFT PUBIS, INIT ENCNTR FOR CLOSED FRACTURE Status: Acute Priority: High Current Visit: Yes Qualifiers: Encounter type: initial encounter Fracture type: closed Qualified Code(s): S32.592A - Other specified fracture of left pubis, initial encounter for closed fracture (3) Fracture of superior ramus of left pubis SNOMED Code(s): 045912033 Code(s): S32.512A - FRACTURE OF SUPERIOR RIM OF LEFT PUBIS, INIT FOR CLOS FX Status: Acute Priority: High Current Visit: Yes Qualifiers: Encounter type: initial encounter Fracture type: closed Qualified Code(s): S32.512A - Fracture of superior rim of left pubis, initial encounter for closed fracture (4) A-fib SNOMED Code(s): 42913603 Code(s): I48.91 - UNSPECIFIED ATRIAL FIBRILLATION Status: Chronic Prio rity: Medium Current Visit: No Qualifiers: Atrial fibrillation type: unspecified Qualified Code(s): I48.91 - Unspecified atrial fibrillation (5) CAD (coronary artery disease) SNOMED Code(s): 92172795 Code(s): I25.10 - ATHSCL HEART DISEASE OF [place] CORONARY ARTERY W/O ANG PCTRS Status: Chronic Priority: Medium Current Visit: No Qualifiers: Coronary Disease-Associated Artery/Lesion type: unspecified vessel or lesion type [place] vs. transplanted heart: [place] heart Associated angina: unspecified whether angina present Qualified Code(s): I25.10 - Atherosclerotic heart disease of [place] coronary artery without angina pectoris (6) CHF (congestive heart failure) SNOMED Code(s): 09548717 Code(s): I50.9 - HEART FAILURE, UNSPECIFIED Status: Chronic Priority: Medium Current Visit: No Qualifiers: Heart failure type: unspecified Heart failure chronicity: unspecified Qualified Code(s): I50.9 - Heart failure, unspecified (7) HLD (hyperlipidemia) SNOMED Code(s): 75425234 Code(s): E78.5 - HYPERLIPIDEMIA, UNSPECIFIED Status: Chronic Priority: Low Current Visit: No Qualifiers: Hyperlipidemia type: unspecified Qualified Code(s): E78.5 - Hyperlipidemia, unspecified (8) Normally functioning cardiac pacemaker present SNOMED Code(s): 935740617, 161819077 Code(s): Z95.0 - PRESENCE OF CARDIAC PACEMAKER Status: Chronic Priority: Low Current Visit: No (9) History of heart artery stent SNOMED Code(s): 270975968, 488317437 Code(s): Z95.5 - PRESENCE OF CORONARY ANGIOPLASTY IMPLANT AND GRAFT Status: Chronic Priority: Low Current Visit: No (10) Asthma SNOMED Code(s): 300345085 Code(s): J45.909 - UNSPECIFIED ASTHMA, UNCOMPLICATED Status: Chronic Priority: Medium Current Visit: No Qualifiers: Asthma severity: unspecified severity Asthma persistence: unspecified Asthma complication type: unspecified Qualified Code(s): J45.909 - Unspecified asthma, uncomplicated (11) COPD (chronic obstructive pulmonary disease) SNOMED Code(s): 77683621 Code(s): J44.9 - CHRONIC OBSTRUCTIVE PULMONARY DISEASE, UNSPECIFIED Status: Chronic Priority: Medium Current Visit: No Qualifiers: COPD type: unspecified COPD Qualified Code(s): J44.9 - Chronic obstructive pulmonary disease, unspecified (12) Obstructive sleep apnea treated with continuous positive airway pressure (CPAP) SNOMED Code(s): 49459684 Code(s): G47.33 - OBSTRUCTIVE SLEEP APNEA (ADULT) (PEDIATRIC); Z99.89 - DEPENDENCE ON OTHER ENABLING MACHINES AND DEVICES Status: Chronic Priority: Medium Current Visit: Yes (13) GERD (gastroesophageal reflux disease) SNOMED Code(s): 987013760 Code(s): K21.9 - GASTRO-ESOPHAGEAL REFLUX DISEASE WITHOUT ESOPHAGITIS Status: Chronic Priority: Low Current Visit: No Qualifiers: Esophagitis presence: esophagitis presence not specified Qualified Code(s): K21.9 - Gastro-esophageal reflux disease without esophagitis (14) Renal calculi SNOMED Code(s): 61464376 Code(s): N20.0 - CALCULUS OF KIDNEY Status: Acute Current Visit: Yes (15) Dysphagia SNOMED Code(s): 83092327, 346202000 Code(s): R13.10 - DYSPHAGIA, UNSPECIFIED Status: Chronic Priority: Low Current Visit: No (16) PUD (peptic ulcer disease) SNOMED Code(s): 61137791 Code(s): K27.9 - PEPTIC ULC, SITE UNSP, UNSP AC OR CHR, W/O HEMOR OR PERF Status: Chronic Priority: Low Current Visit: No (17) Osteoporosis SNOMED Code(s): 50865204 Code(s): M81.0 - AGE-RELATED OSTEOPOROSIS W/O CURRENT PATHOLOGICAL FRACTURE Status: Chronic Priority: Medium Current Visit: Yes Qualifiers: Osteoporosis type: unspecified Presence of current pathological fracture: without current pathological fracture Qualified Code(s): M81.0 - Age-related osteoporosis without current pathological fracture (18) Chronic low back pain SNOMED Code(s): 742064177 Code(s): M54.5 - LOW BACK PAIN; G89.29 - OTHER CHRONIC PAIN Status: Chronic Priority: Low Current Visit: No Qualifiers: Back pain laterality: unspecified Sciatica presence: unspecified whether sciatica present Qualified Code(s): M54.5 - Low back pain; G89.29 - Other chronic pain (19) RLS (restless legs syndrome) SNOMED Code(s): 34686407 Code(s): G25.81 - RESTLESS LEGS SYNDROME Status: Chronic Priority: Low Current Visit: No (20) Post-laminectomy syndrome SNOMED Code(s): 72412536 Code(s): M96.1 - POSTLAMINECTOMY SYNDROME, NOT ELSEWHERE CLASSIFIED Status: Chronic Priority: Low Current Visit: No (21) Alzheimer disease SNOMED Code(s): 01177496 Code(s): G30.9 - ALZHEIMER'S DISEASE, UNSPECIFIED; F02.80 - DEMENTIA IN OTH DISEASES CLASSD ELSWHR W/O BEHAVRL DISTURB Status: Chronic Priority: Medium Current Visit: Yes (22) Parkinson disease SNOMED Code(s): 53140236 Code(s): G20 - PARKINSON'S DISEASE Status: Chronic Priority: Medium Current Visit: Yes (23) Depression SNOMED Code(s): 05313318 Code(s): F32.9 - MAJOR DEPRESSIVE DISORDER, SINGLE EPISODE, UNSPECIFIED Status: Chronic Priority: Low Current Visit: No Qualifiers: Depression Type: other depression Qualified Code(s): F32.89 - Other specified depressive episodes (24) Cognitive communication deficit SNOMED Code(s): 132551893369341 Code(s): R41.841 - COGNITIVE COMMUNICATION DEFICIT Status: Chronic Pr iority: Low Current Visit: No (25) Insomnia SNOMED Code(s): 755783712 Code(s): G47.00 - INSOMNIA, UNSPECIFIED Status: Chronic Priority: Low Current Visit: No Qualifiers: Insomnia type: unspecified Qualified Code(s): G47.00 - Insomnia, unspecified (26) Hypothyroidism SNOMED Code(s): 85795846 Code(s): E03.9 - HYPOTHYROIDISM, UNSPECIFIED Status: Chronic Priority: Low Current Visit: No Qualifiers: Hypothyroidism type: unspecified Qualified Code(s): E03.9 - Hypothyroidism, unspecified (27) Hypokalemia SNOMED Code(s): 66253493 Code(s): E87.6 - HYPOKALEMIA Status: Chronic Priority: Low Current Visit: No (28) Type 2 diabetes mellitus SNOMED Code(s): 50191656 Code(s): E11.9 - TYPE 2 DIABETES MELLITUS WITHOUT COMPLICATIONS Status: Chronic Priority: Medium Current Visit: Yes Qualifiers: Diabetes mellitus adjunct faculty for medical terminology insulin use: without detention use Diabetes mellitus complication status: with other specified complication Qualified Code(s): E11.69 - Type 2 diabetes mellitus with other specified complication (29) Renal failure SNOMED Code(s): 21830465 Code(s): N19 - UNSPECIFIED KIDNEY FAILURE Status: Chronic Priority: Medium Current Visit: Yes Qualifiers: Renal failure chronicity: unspecified chronicity Qualified Code(s): N19 - Unspecified kidney failure (30) Hyperbilirubinemia SNOMED Code(s): 87224787 Code(s): E80.6 - OTHER DISORDERS OF BILIRUBIN METABOLISM Status: Chronic Priority: Low Current Visit: No - My Orders Last 24 Hours: My Active Orders 12/07/20 08:47 Height and Weight [RC] DAILY Intake and Output [RC] 04,16 Let Patient Sleep Protocol [RC] BEDTIME Oxygen Therapy [RC] ASDIRECTED Pulse Oximetry [RC] PRN RT Incentive Spirometry [RC] ASDIRECTED Up With Assistance [RC] ASDIRECTED Up to Chair [RC] ASDIRECTED Vital Signs [RC] 03,,, Consult to Case Management/Nibbler Operator [CONS] Routine Consult to Spiritual Care [CONS] Routine Acetaminophen [TylenoL] 650 mg PO Q4H PRN Magnesium Hydroxide [Milk of Magnesia] 30 ml PO Q12H PRN Ondansetron [Zofran] 4 mg IV Q6H PRN 12/07/20 08:49 OT Evaluation and Treatment [CONS] Routine PT Evaluation and Treatment [CONS] Routine 12/07/20 08:50 Precautions [COMM] Routine 12/07/20 09:00 Pharmacy to Dose - Warfarin 1 dose .XX ASDIRECTED PRN 12/07/20 09:44 Acetaminophen/HYDROcodone [[place] 325-5 MG] 1 tab PO Q6H PRN 12/07/20 09:45 Morphine 1 mg IVPUSH Q2H PRN 12/07/20 09:46 CPAP Noctural Home [RT BiPAP/CPAP] [RC] ASDIRECTED 12/07/20 09:47 Code Status [Resuscitation Status] Routine 12/07/20 10:08 RT Post Treatment Assessment [RC] Click to Edit RT Pre-Treatment Assessment [RC] Click to Edit 12/07/20 10:20 Albuterol/Ipratropium [DuoNeb 3.0-0.5 MG/3 ML] 3 ml NEB QIDRT PRN 12/07/20 10:21 RT Aerosol Therapy [RC] ASDIRECTED 12/07/20 10:45 fentaNYL [Duragesic] 12 mcg TRDERM Q72H 12/07/20 11:00 Dorzolamide [Trusopt 2% Ophth Soln] 0 ml EYEBOTH BID polyethylene glycoL 3350 [MiraLAX] 17 gm PO DAILY 12/07/20 12:16 Patient Status [ADT] Routine 12/07/20 13:00 Trolamine Salicylate/Aloe Vera [Aspercreme 10%] 0 gm TOP QID 12/07/20 17:00 Non-Formulary Medication [NF Drug] 0 each PO BIDMEALS 12/07/20 18:00 Famotidine [Pepcid] 20 mg PO QPM Non-Formulary Medication [NF Drug] 0 each PO QPM carvediloL [Coreg] 3.125 mg PO QPM 12/07/20 21:00 Acetaminophen [TylenoL] 650 mg PO BID Albuterol [Proventil HFA] 0 gm INH BID Baclofen [Lioresal] 10 mg PO BEDTIME Carbidopa/Levodopa [Sinemet 10-100 mg] 1 tab PO BID Latanoprost [Xalatan 0.005% Ophth Soln] 0 ml EYEBOTH BEDTIME Mirtazapine [Remeron] 15 mg PO BEDTIME Nystatin [Nystop] 0 gm TOP BID Pramipexole [Mirapex] 0.25 mg PO BEDTIME Sennosides [Senna] 17.2 mg PO BEDTIME atorvaSTATin [Lipitor] 40 mg PO BEDTIME 12/08/20 06:00 Levothyroxine 75 mcg PO ACBREAKFAST 12/08/20 09:00 ARIPiprazole [Abilify] 5 mg PO DAILY Calcium Carbonate/Vitamin D3 [Calcium Carbonate/Vitamin D 600 MG-200 Unit] 1 tab PO DAILY Cyanocobalamin (Vitamin B12) [Vitamin B12] 1,000 mcg PO DAILY Furosemide [Lasix] 80 mg PO DAILY Isosorbide Mononitrate [Imdur] 30 mg PO DAILY Omeprazole 20 mg PO DAILY Potassium Chloride [Klor-Con 10] 20 meq PO DAILY Saccharomyces Boulardii [Florastor] 250 mg PO DAILY 12/08/20 12:00 Furosemide [Lasix] 40 mg PO 1200 12/09/20 05:11 CBC WITH AUTO DIFF [HEME] AM COMPREHENSIVE METABOLIC PN,CMP [CHEM] AM INR,PT,PROTHROMBIN TIME [COAG] AM MAGNESIUM [CHEM] AM 12/10/20 05:11 CBC WITH AUTO DIFF [HEME] AM COMPREHENSIVE METABOLIC PN,CMP [CHEM] AM INR,PT,PROTHROMBIN TIME [COAG] AM MAGNESIUM [CHEM] AM 12/10/20 10:45 Remove Patch 0 ea TRDERM Q72H 12/11/20 05:11 CBC WITH AUTO DIFF [HEME] AM COMPREHENSIVE METABOLIC PN,CMP [CHEM] AM INR,PT,PROTHROMBIN TIME [COAG] AM MAGNESIUM [CHEM] AM - Plan Plan:: Assessment - day of admission - 12/07/2020 * 75-year-old female who resides at [facility] presented to ED after a fall and subsequent left hip pain * Fall reportedly happened around 5 AM and patient was able to ambulate then. Now reports worsening pain and left leg is shorter. * Carries a history of: A. fib, CAD, CHF, HLD, pacemaker secondary to third- degree AV block, 2 stents placed, asthma, COPD, sleep apnea controlled with CPAP at night, GERD, renal calculi, dysphagia, PUD, osteoporosis, chronic low back pain, RLS, postlaminectomy syndrome, Alzheimer's disease, Parkinson's disease, depression, cognitive communication deficit, insomnia, type II DM, hypothyroidism, obesity, hypokalemia. * Labs in ED: * WBC 7.57. * Hemoglobin is 12.9. * Hematocrit 41.0. * Platelet 106,000. * INR is 1.52. * Sodium 143. * Potassium 3.8. * Chloride 105. * Carbon dioxide 26. * Anion gap is slightly elevated at 15.8. * BUN is 32. Creatinine 1.7. GFR is 29. * Glucose 114. * Total bilirubin 1.5. * AST 71, ALT 21, alkaline phosphatase 63. * Albumin is 3.4. * SARS-CoV-2 RNA is negative. * CT of the head is obtained showing atrophy and nonspecific chronic white matter change. There is no acute intracranial abnormality present. * Hip x-ray shows moderately displaced pubic rami fractures on the left. No proximal femoral fracture is identified. * CT of the pelvis shows a comminuted mildly displaced fracture of the superior and inferior pubic rami on the left with no evidence of pelvic mass or hematoma. * [facility] Dr. Salazar was contacted: Non-surgical. WBAT, Recommend ed admission for PT/OT and pain control. * Hospitals in [place] are reportedly full and the patient is subsequently admitted to our floor. PLAN: Fall Fracture of left inferior pubic ramus Fracture of superior ramus of left pubis Osteoporosis * PT/OT * CM/SW for placement * Pain medications as ordered * WBAT * Follow-up with orthopedics after discharge * Continue home bowel regimen A-fib Normally functioning cardiac pacemaker present * No acute concerns * Telemetry * Continue home mes as ordered * Continue warfarin with pharmacy to dose * Daily INR CAD (coronary artery disease) History of heart artery stent HLD (hyperlipidemia) CHF (congestive heart failure) * No acute concerns * Home meds as ordered Asthma COPD (chronic obstructive pulmonary disease) Obstructive sleep apnea treated with continuous positive airway pressure (CPAP) * Home respiratory meds as ordered * CPAP at night * IS * No acute concerns * DuoNeb nebulizer if needed GERD (gastroesophageal reflux disease) PUD (peptic ulcer disease) * No acute concerns * Home meds as ordered Renal calculi Renal failure * No acute concerns * Unsure if JANENE vs CKD * Obtain old lab report * IV fluids as ordered * Hold home lasix today Dysphagia * Monitor need for ASSISTANT ANALYST evaluation * No acute concerns * On regular diet at [facility] Post-laminectomy syndrome Chronic low back pain * PT/OT * Pain medications as ordered * PRN home Baclofen RLS (restless legs syndrome) * No acute concerns * Home meds as ordered Alzheimer disease Parkinson disease Depression Cognitive communication deficit Insomnia * Let patient sleep protocol * No acute concerns * Home medications as ordered Hypothyroidism * Check TSH - WNL * Continue home levothyroxine Hypokalemia * No acute concerns * Monitor daily labs * Continue home supplementation Type 2 diabetes mellitus * Check A1C - 6.3% * No home meds * Monitor blood glucose daily * Diabetic diet Code status: Full code PCP: Dr. Segura DVT prophylaxis: Warfarin Social: Patient resides at [facility]. Will likely need SNF placement. Disposition: Patient admitted to the medical floor on telemetry for pain management and PT OT. Will likely require SNF placement.
[2020-12-08] MEDS ORDERED: Pantoprazole 40 MG Tab.CR ONE (08:02)
[2020-12-08] MEDS: Carbidopa/Levodopa 10-100 MG Tab PO SCH (08:08)
[2020-12-08] MEDS: Polyethylene Glycol 3350 Powder 17 GM Packet PO SCH (08:08)
[2020-12-08] MEDS: Acetaminophen 325 MG Tab PO SCH (08:15)
[2020-12-08] MEDS: Dorzolamide 2% Ophth Soln 10 ML Bottle EYEBOTH SCH (08:20)
[2020-12-08 08:21] VITALS: BP 111/81
[2020-12-08] MEDS: Nystatin Topical Powder 15 GM Bottle TOP SCH (08:23)
[2020-12-08] MEDS: Trolamine Salicylate/Aloe Vera 10% Crm 85 GM Tube TOP SCH ×2 (08:23→13:09)
[2020-12-08] MEDS ORDERED: Potassium Chloride 10 MEQ Tab.ER PO SCH (09:00)
[2020-12-08] MEDS ORDERED: Saccharomyces Boulardii (Probiotic) 250 MG Cap PO SCH (09:00)
[2020-12-08] MEDS ORDERED: Isosorbide Mononitrate 30 MG Tab.ER PO SCH (09:00)
[2020-12-08] MEDS ORDERED: ARIPiprazole 5 MG Tab PO SCH (09:00)
[2020-12-08] MEDS ORDERED: Omeprazole 20 MG Cap.CR PO SCH (09:00)
[2020-12-08] MEDS ORDERED: Furosemide 80 MG Tab PO SCH (09:00)
[2020-12-08] MEDS ORDERED: Calcium Carbonate/Vitamin D3 600 MG-200 Units Tab PO SCH (09:00)
[2020-12-08] MEDS ORDERED: Cyanocobalamin (Vitamin B12) 1,000 MCG Tab PO SCH (09:00)
[2020-12-08] MEDS ORDERED: Potassium Chloride 20 MEQ Tab.ER PO SCH (09:00)
--- NOTE | 2020-12-08 09:03 | PCM.DCSUM1 ---
Discharge Summary - Hospital Course HPI Initial Comments: This is a 75-year-old female who resides at [facility], who was presented to our ED on the evening of 12/06/2020 via [facility] for left hip pain after a fall. Fall reportedly occurred earlier in the day at 5 AM. It is reported that they were able to ambulate the patient without issue initially, however her left hip pain has gotten worse as the day went on. They noticed that her left leg was shorter. She is on Coumadin for atrial fibrillation. Patient does not believe she hit her head and has no headache or neck pain. Denies any chest pain, abdominal pain, fever, chills, cough, shortness of breath. She does have a history of hip surgery on the left side. In the ED temp was 97.5. Pulse 70. Respirations 20. Blood pressure 127/66. Pulse ox 95%. Labs are obtained with a normal white count of 7.57. Hemoglobin is 12.9. Hematocrit 41.0. Platelet 106,000. INR is 1.52. Sodium 143. Potassium 3.8. Chloride 105. Carbon dioxide 26. Anion gap is slightly elevated at 15.8. BUN is 32. Creatinine 1.7. GFR is 29. Glucose 114. Total bilirubin 1.5. AST 71, ALT 21, alkaline phosphatase 63. Albumin is 3.4. SARS-CoV-[address] of the head is obtained showing atrophy and nonspecific chronic white matter change. There is no acute intracranial abnormality present. Hip x-ray shows moderately displaced pubic rami fractures on the left. No proximal femoral fracture is identified. CT of the pelvis shows a comminuted mildly displaced fracture of the superior and inferior pubic rami on the left with no evidence of pelvic mass or hematoma. [place] [facility] Dr. Salazar was contacted by the ED provider who states that this is nonsurgical and that the patient may weight-bear as tolerated. He recommended admission for pain control and physical therapy. Hospitals in [place] are reportedly full and the patient is subsequently admitted to our floor. Initial order was for inpatient status however this was inaccurate as patient was intended to be admitted observation status. This was corrected after admission. She carries a history of: A. fib, CAD, CHF, HLD, pacemaker secondary to third- degree AV block, 2 stents placed, asthma, COPD, sleep apnea controlled with CPAP at night, GERD, renal calculi, dysphagia, PUD, osteoporosis, chronic low back pain, RLS, postlaminectomy syndrome, Alzheimer's disease, Parkinson's disease, depression, cognitive communication deficit, insomnia, type II DM, hypothyroidism, obesity, hypokalemia. Her PCP is Dr. Segura. Diagnosis: Stroke: No - Discharge Data Discharge Date: 12/08/20 (Admit date: 12/07/2020) Discharge Disposition: DC/Tfer to SNF 03 Condition: Good - Referral to Home Health Primary Care Physician: Randall Segura MD - Discharge Diagnosis/Problem(s) (1) Fall SNOMED Code(s): 3104975, 460034374 ICD Code: W19.XXXA - UNSPECIFIED FALL, INITIAL ENCOUNTER Status: Acute Priority: High Current Visit: Yes Qualifiers: Encounter type: initial encounter Qualified Code(s): W19.XXXA - Unspecified fall, initial encounter (2) Fracture of left inferior pubic ramus SNOMED Code(s): 892899978 ICD Code: S32.592A - OTH FRACTURE OF LEFT PUBIS, INIT ENCNTR FOR CLOSED FRACTURE Status: Acute Priority: High Current Visit: Yes Qualifiers: Encounter type: initial encounter Fracture type: closed Qualified Code(s): S32.592A - Other specified fracture of left pubis, initial encounter for closed fracture (3) Fracture of superior ramus of left pubis SNOMED Code(s): 614893374 ICD Code: S32.512A - FRACTURE OF SUPERIOR RIM OF LEFT PUBIS, INIT FOR CLOS FX Status: Acute Priority: High Current Visit: Yes Qualifiers: Encounter type: initial encounter Fracture type: closed Qualified Code(s): S32.512A - Fracture of superior rim of left pubis, initial encounter for closed fracture (4) A-fib SNOMED Code(s): 93248377 ICD Code: I48.91 - UNSPECIFIED ATRIAL FIBRILLATION Status: Chronic Priority: Medium Current Visit: No Qualifiers: Atrial fibrillation type: unspecified Qualified Code(s): I48.91 - U nspecified atrial fibrillation (5) CAD (coronary artery disease) SNOMED Code(s): 63847659 ICD Code: I25.10 - ATHSCL HEART DISEASE OF [place] CORONARY ARTERY W/O ANG PCTRS Status: Chronic Priority: Medium Current Visit: No Qualifiers: Coronary Disease-Associated Artery/Lesion type: unspecified vessel or lesion type [place] vs. transplanted heart: [place] heart Associated angina: unspecified whether angina present Qualified Code(s): I25.10 - Atherosclerotic heart disease of [place] coronary artery without angina pectoris (6) CHF (congestive heart failure) SNOMED Code(s): 48863745 ICD Code: I50.9 - HEART FAILURE, UNSPECIFIED Status: Chronic Priority: Medium Current Visit: No Qualifiers: Heart failure type: unspecified Heart failure chronicity: unspecified Qualified Code(s): I50.9 - Heart failure, unspecified (7) HLD (hyperlipidemia) SNOMED Code(s): 92865434 ICD Code: E78.5 - HYPERLIPIDEMIA, UNSPECIFIED Status: Chronic Priority: Low Current Visit: No Qualifiers: Hyperlipidemia type: unspecified Qualified Code(s): E78.5 - Hyperlipidemia, unspecified (8) Normally functioning cardiac pacemaker present SNOMED Code(s): 568095823, 748570911 ICD Code: Z95.0 - PRESENCE OF CARDIAC PACEMAKER Status: Chronic Priority: Low Current Visit: No (9) History of heart artery stent SNOMED Code(s): 408432574, 007496098 ICD Code: Z95.5 - PRESENCE OF CORONARY ANGIOPLASTY IMPLANT AND GRAFT Status: Chronic Priority: Low Current Visit: No (10) Asthma SNOMED Code(s): 827473208 ICD Code: J45.909 - UNSPECIFIED ASTHMA, UNCOMPLICATED Status: Chronic Priority: Medium Current Visit: No Qualifiers: Asthma severity: unspecified severity Asthma persistence: unspecified Asthma complication type: unspecified Qualified Code(s): J45.909 - Unspecified asthma, uncomplicated (11) COPD (chronic obstructive pulmonary disease) SNOMED Code(s): 81234075 ICD Code: J44.9 - CHRONIC OBSTRUCTIVE PULMONARY DISEASE, UNSPECIFIED Status: Chronic Priority: Medium Current Visit: No Qualifiers: COPD type: unspecified COPD Qualified Code(s): J44.9 - Chronic obstructive pulmonary disease, unspecified (12) Obstructive sleep apnea treated with continuous positive airway pressure (CPAP) SNOMED Code(s): 53372888 ICD Code: G47.33 - OBSTRUCTIVE SLEEP APNEA (ADULT) (PEDIATRIC); Z99.89 - DEPENDENCE ON OTHER ENABLING MACHINES AND DEVICES Status: Chronic Priority: Medium Current Visit: Yes (13) GERD (gastroesophageal reflux disease) SNOMED Code(s): 683473680 ICD Code: K21.9 - GASTRO-ESOPHAGEAL REFLUX DISEASE WITHOUT ESOPHAGITIS Status: Chronic Priority: Low Current Visit: No Qualifiers: Esophagitis presence: esophagitis presence not specified Qualified Code(s): K21.9 - Gastro-esophageal reflux disease without esophagitis (14) Renal calculi SNOMED Code(s): 80834285 ICD Code: N20.0 - CALCULUS OF KIDNEY Status: Acute Current Visit: Yes (15) Dysphagia SNOMED Code(s): 50989635, 659395014 ICD Code: R13.10 - DYSPHAGIA, UNSPECIFIED Status: Chronic Priority: Low Current Visit: No (16) PUD (peptic ulcer disease) SNOMED Code(s): 31597749 ICD Code: K27.9 - PEPTIC ULC, SITE UNSP, UNSP AC OR CHR, W/O HEMOR OR PERF Status: Chronic Priority: Low Current Visit: No (17) Osteoporosis SNOMED Code(s): 54036247 ICD Code: M81.0 - AGE-RELATED OSTEOPOROSIS W/O CURRENT PATHOLOGICAL FRACTURE Status: Chronic Priority: Medium Current Visit: Yes Qualifiers: Osteoporosis type: unspecified Presence of current pathological fracture: without current pathological fracture Qualified Code(s): M81.0 - Age-related osteoporosis without current pathological fracture (18) Chronic low back pain SNOMED Code(s): 812808731 ICD Code: M54.5 - LOW BACK PAIN; G89.29 - OTHER CHRONIC PAIN Status: Chronic Priority: Low Current Visit: No Qualifiers: Back pain laterality: unspecified Sciatica presence: unspecified whether sciatica present Qualified Code(s): M54.5 - Low back pain; G89.29 - Other chronic pain (19) RLS (restless legs syndrome) SNOMED Code(s): 28529373 ICD Code: G25.81 - RESTLESS LEGS SYNDROME Status: Chronic Priority: Low Current Visit: No (20) Post-laminectomy syndrome SNOMED Code(s): 19626673 ICD Code: M96.1 - POSTLAMINECTOMY SYNDROME, NOT ELSEWHERE CLASSIFIED Status: Chronic Priority: Low Current Visit: No (21) Alzheimer disease SNOMED Code(s): 06557639 ICD Code: G30.9 - ALZHEIMER'S DISEASE, UNSPECIFIED; F02.80 - DEMENTIA IN OTH DISEASES CLASSD ELSWHR W/O BEHAVRL DISTURB Status: Chronic Priority: Medium Current Visit: Yes (22) Parkinson disease SNOMED Code(s): 54574956 ICD Code: G20 - PARKINSON'S DISEASE Status: Chronic Priority: Medium Current Visit: Yes (23) Depression SNOMED Code(s): 45817200 ICD Code: F32.9 - MAJOR DEPRESSIVE DISORDER, SINGLE EPISODE, UNSPECIFIED Status: Chronic Priority: Low Current Visit: No Qualifiers: Depression Type: other depression Qualified Code(s): F32.89 - Other specified depressive episodes (24) Cognitive communication deficit SNOMED Code(s): 863514309567346 ICD Code: R41.841 - COGNITIVE COMMUNICATION DEFICIT Status: Chronic Priority: Low Current Visit: No (25) Insomnia SNOMED Code(s): 454808222 ICD Code: G47.00 - INSOMNIA, UNSPECIFIED Status: Chronic Priority: Low Current Visit: No Qualifiers: Insomnia type: unspecified Qualified Code(s): G47.00 - Insomnia, unspecified (26) Hypothyroidism SNOMED Code(s): 10593067 ICD Code: E03.9 - HYPOTHYROIDISM, UNSPECIFIED Status: Chronic Priority: Low Current Visit: No Qualifiers: Hypothyroidism type: unspecified Qualified Code(s): E03.9 - Hypothyroidism, unspecified (27) Hypokalemia SNOMED Code(s): 05398531 ICD Code: E87.6 - HYPOKALEMIA Status: Chronic Priority: Low Current Visit: No (28) Type 2 diabetes mellitus SNOMED Code(s): 79035439 ICD Code: E11.9 - TYPE 2 DIABETES MELLITUS WITHOUT COMPLICATIONS Status: Chronic Priority: Medium Current Visit: Yes Qualifiers: 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: without senior living use Diabetes mellitus complication status: with other specified complication Qualified Code(s): E11.69 - Type 2 diabetes mellitus with other specified complication (29) Renal failure SNOMED Code(s): 57892737 ICD Code: N19 - UNSPECIFIED KIDNEY FAILURE Status: Chronic Priority: Medium Current Visit: Yes Qualifiers: Renal failure chronicity: unspecified chronicity Qualified Code(s): N19 - Unspecified kidney failure - Patient Summary/Data Consults: Consultations 12/07/20 08:47 Consult to Case Management/Reservations Sales Supervisor [CONS] Routine Consult to Spiritual Care [CONS] Routine 12/07/20 08:49 OT Evaluation and Treatment [CONS] Routine PT Evaluation and Treatment [CONS] Routine Labs Pending at D/C: None Recommended Follow-up Testing/Procedures: Follow-up with primary care provider within 7-10 days of discharge, sooner if needed. -Re-check INR on 12/13/[address] Erickson. Orders given to patient -All prior home meds continued -Monitor INR as it was low on admission and patient was given one day of higher dosing - usual dosing continued at discharge Follow-up with orthopedics within 14 days of discharge Hospital Course: This is a 75-year-old female who presented to ED and was subsequently admitted on 12/07/2020 after a fall at [facility] where she resides. It is reported that the fall happened earlier in the day and patient was initially able to ambulate. As a day went on she was having difficulty ambulating due to pain and nursing noted her left leg was shorter. Carries a history of: A. 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 Hip x-ray showed a moderately displaced pubic rami fracture on the left with no proximal femoral fracture noted. CT of the head was obtained and showed atrophy and nonspecific chronic white matter change with no acute intracranial abnormality. CT of the pelvis shows a comminuted mildly displaced fracture of the superior and inferior pubic rami on the left with no evidence of pelvic mass or hematoma. Dr. Salazar, orthopedic surgeon with [facility] in [place], was contacted and said fracture is nonsurgical but recommended admission to the hospital for pain management and PT/OT. She was subsequently admitted observation status. PT and OT did work with her and recommended SNF placement. INR was noted on admission to be slightly low at 1.52 and her warfarin dosing was increased. She will be discharged on home warfarin dosing with INR recheck ordered for 12/13/2020 with results to primary care provider Dr. Davis. Her pain is been very well controlled and she has not been requiring any narcotic pain medicine while here. She does report pain with ambulation and transfers but again, this has been controlled. Prescription was sent for every 6 hours as needed hydrocodone/acetaminophen 5-325 mg in case patient's pain becomes more severe. Recommend follow-up with primary care provider within 7 to 10 days of discharge, sooner if needed. Recommend follow-up with orthopedic surgeon within 14 days of discharge. Recommend patient continue PT/OT at SNF. Recommend PCP monitor patient's INR as warfarin may need to be adjusted. Otherwise patient was discharged on all prior home medications. Patient A1c was checked while here was 6.3% PCP should follow-up with this. TSH was obtained and was within normal limits. Patient discharged to [facility] today. - Patient Instructions Diet: Usual Diet as Tolerated Activity: As Tolerated Driving: Do Not Drive Showering/Bathing: May Shower Notify Provider of: Fever, Increased Pain, Nausea and/or Vomiting Other/Special Instructions: Follow-up with primary care provider within 7-10 days of discharge, sooner if needed. Re-check INR on 12/13/2020 with results to PCP - Dr. Erickson. Follow-up with orthopedics within 10 days of discharge regarding your pelvic fracture. Continue to utilize your incentive spirometer (clear/blue device you inhale through) for 1-2 weeks. Weight bearing as tollerated. Continue PT/OT at SNF. Should sympotoms return or worsen contact primary care provider or return to the Emergency Department. - Discharge Plan *PRESCRIPTION DRUG MONITORING PROGRAM REVIEWED*: No *COPY OF PRESCRIPTION DRUG MONITORING REPORT IN PATIENT DHRUV: No Prescriptions/Med Rec: Hydrocodone/Acetaminophen [Hydrocodone-Acetamin 5-325 mg] 1 each PO Q6H PRN #6 tablet PRN Reason: Pain (Moderate 4-6) Home Medications: Home Meds Furosemide [Lasix] 40 mg PO 1200 09/03/14 [History] Carbidopa/Levodopa [Carbidopa-Levo 10-100 mg Odt] 1 tab PO BID 03/14/15 [History] Calcium Carbonate/Vitamin D3 [Calcium 600Mg-D3 400 Unit Sfgl] 1 cap PO DAILY 05/23/16 [History] Isosorbide Mononitrate [Imdur] 30 mg PO DAILY 05/23/16 [History] Levothyroxine [Synthroid] 75 mcg PO ACBREAKFAST 05/23/16 [History] carvediloL [Carvedilol] 3.125 mg PO BEDTIME 05/23/16 [History] Baclofen 10 mg PO QPM 10/15/16 [History] Cyanocobalamin (Vitamin B-12) [B-12] 1 tab PO DAILY 10/15/16 [History] Polyethylene Glycol 3350 [MiraLAX] 17 gram PO DAILY 10/15/16 [History] Acetaminophen [Tylenol] 650 mg PO BID 01/12/17 [History] Acetaminophen [Tylenol] 650 mg PO Q6H PRN 01/12/17 [History] Albuterol Sulfate [Proair Hfa] 1 puff INH BID 01/12/17 [History] Mirtazapine [Remeron] 15 mg PO BEDTIME 01/12/17 [History] Warfarin [Coumadin] 2 mg PO SUMOTUWETHSA 01/12/17 [History] Warfarin [Coumadin] 4 mg PO FR 01/12/17 [History] fentaNYL [Fentanyl] 12 mcg TOP Q72H 01/12/17 [History] ondansetron HCL [Zofran] 8 mg PO BIDMEALS 01/12/17 [History] ARIPiprazole [Abilify] 5 mg PO DAILY 12/07/20 [History] Denosumab [Prolia] 1 dose SUBCUT ASDIRECTED 12/07/20 [History] Dorzolamide [Trusopt 2% Ophth Soln] 1 drop EYEBOTH BID 12/07/20 [History] FLUoxetine [PROzac] 40 mg PO QPM 12/07/20 [History] Famotidine 20 mg PO DAILY 12/07/20 [History] Furosemide [Lasix] 80 mg PO DAILY 12/07/20 [History] Lactobacillus Acidophilus [Acidophilus Probiotic] 1 tab PO DAILY 12/07/20 [History] Latanoprost/Pf [Latanoprost 0.005% Eye Drop] 1 drop EYEBOTH BEDTIME 12/07/20 [History] Nystatin [Nyata] 1 dose TOP BID 12/07/20 [History] Omeprazole 20 mg PO DAILY 12/07/20 [History] Potassium Chloride [Klor-Con 10] 20 meq PO DAILY 12/07/20 [History] Pramipexole Di-HCl [Pramipexole Dihydrochloride] 0.25 mg PO BEDTIME 12/07/20 [History] Sennosides [Mila-Jamir] 2 tab PO BEDTIME 12/07/20 [History] Trolamine Salicylate [Sportscreme 10%] 1 applic TOP QID 12/07/20 [History] atorvaSTATin [Lipitor] 40 mg PO BEDTIME 12/07/20 [History] Hydrocodone/Acetaminophen [Hydrocodone-Acetamin 5-325 mg] 1 each PO Q6H PRN #6 tablet 12/08/20 [Rx] Oxygen Therapy Mode: Room Air Patient Handouts: Simple Pelvic Fracture, Adult Referrals: Tulio Kaur MD [Physician] - ([facility] will call with a follow-up appointment for Diane.) Baldemar Peterson MD [Physician] - 12/20/20 8:30 am (appt. via zoom, Zoom #[phone] please call clinic with any questions.) - Discharge Summary/Plan Comment DC Time >30 min.: Yes (45 mins ) - General Info Date of Service: 12/08/20 Admission Dx/Problem (Free Text: Superior and inferior pubic rami fracture. Functional Status: Reports: Pain Controlled, Tolerating Diet, Ambulating, Urinating, Incentive Spirometry. Denies: New Symptoms - Review of Systems General: Reports: Weakness. Denies: Fever, Fatigue, Malaise, Chills HEENT: Reports: No Symptoms. Denies: Headaches, Sore Throat Pulmonary: Reports: No Symptoms. Denies: Shortness of Breath, Cough, Sputum, Wheezing Cardiovascular: Reports: No Symptoms. Denies: Chest Pain, Palpitations, Dyspnea on Exertion, Edema Gastrointestinal: Reports: No Symptoms. Denies: Abdominal Pain, Constipation, Diarrhea, Nausea, Vomiting Genitourinary: Reports: No Symptoms. Denies: Pain Musculoskeletal: Reports: Leg Pain (left leg), Joint Pain (left hip) Skin: Reports: No Symptoms. Denies: Cyanosis Neurological: Reports: Confusion (baseline ), Pre-Existing Deficit, Difficulty Walking, Weakness, Gait Disturbance. Denies: Headache, Numbness, Syncope, Tingling Psychiatric: Reports: No Symptoms - Patient Data Vitals - Most Recent: Last Vital Signs Temp 97.5 F 12/08/20 08:18 Pulse 70 12/08/20 08:18 Resp 18 12/08/20 08:18 BP 111/81 12/08/20 08:18 Pulse Ox 91 L 12/08/20 08:18 Weight - Most Recent: 155 lb 9.6 oz I&O - Last 24 hours: Intake & Output 12/07/20 12/08/20 12/08/20 22:59 06:59 14:59 Intake Total 1040 690 Output Total 375 Balance 1040 315 Lab Results - Last 24 hrs: Laboratory Results - last 24 hr 12/06/20 12/06/20 12/08/20 Range/Units 23:20 23:20 06:05 WBC 4.90 (3.98-10.04) K/mm3 RBC 3.73 L (3.98-5.22) M/mm3 Hgb 11.7 (11.2-15.7) gm/dl Hct 38.6 (34.1-44.9) % MCV 103.5 H (79.4-94.8) fl MCH 31.4 (25.6-32.2) pg MCHC 30.3 L (32.2-35.5) g/dl RDW Std Deviation 53.9 H (36.4-46.3) fL Plt Count 122 L (182-369) K/mm3 MPV 10.1 (9.4-12.3) fl Neut % (Auto) 58.3 (34.0-71.1) % Lymph % (Auto) 29.0 (19.3-51.7) % [place] % (Auto) 9.0 (4.7-12.5) % Eos % (Auto) 3.3 (0.7-5.8) Baso % (Auto) 0.4 (0.1-1.2) % Neut # (Auto) 2.86 (1.56-6.13) K/mm3 Lymph # (Auto) 1.42 (1.18-3.74) K/mm3 [place] # (Auto) 0.44 H (0.24-0.36) K/mm3 Eos # (Auto) 0.16 (0.04-0.36) K/mm3 Baso # (Auto) 0.02 (0.01-0.08) K/mm3 PT (9.7-12.0) SECONDS INR Sodium (136-145) mEq/L Potassium (3.5-5.1) mEq/L Chloride (98-107) mEq/L Carbon Dioxide (21-32) mEq/L Anion Gap (5-15) BUN (7-18) mg/dL Creatinine (0.55-1.02) mg/dL Est Cr Clr Drug Dosing mL/min Estimated GFR (MDRD) (>60) mL/min BUN/Creatinine Ratio (14-18) Glucose (70-99) mg/dL Hemoglobin A1c 6.3 H ( - 5.6) % Calcium (8.5-10.1) mg/dL Magnesium (1.8-2.4) mg/dL Total Bilirubin (0.2-1.0) mg/dL AST (15-37) U/L ALT (14-59) U/L Alkaline Phosphatase (46-116) U/L Total Protein (6.4-8.2) g/dl Albumin (3.4-5.0) g/dl Globulin gm/dL Albumin/Globulin Ratio (1-2) TSH 3rd Generation 1.218 (0.358-3.74) uIU/mL 12/08/20 12/08/20 Range/Units 06:05 06:05 WBC (3.98-10.04) K/mm3 RBC (3.98-5.22) M/mm3 Hgb (11.2-15.7) gm/dl Hct (34.1-44.9) % MCV (79.4-94.8) fl MCH (25.6-32.2) pg MCHC (32.2-35.5) g/dl RDW Std Deviation (36.4-46.3) fL Plt Count (182-369) K/mm3 MPV (9.4-12.3) fl Neut % (Auto) (34.0-71.1) % Lymph % (Auto) (19.3-51.7) % [place] % (Auto) (4.7-12.5) % Eos % (Auto) (0.7-5.8) Baso % (Auto) (0.1-1.2) % Neut # (Auto) (1.56-6.13) K/mm3 Lymph # (Auto) (1.18-3.74) K/mm3 [place] # (Auto) (0.24-0.36) K/mm3 Eos # (Auto) (0.04-0.36) K/mm3 Baso # (Auto) (0.01-0.08) K/mm3 PT 18.7 H (9.7-12.0) SECONDS INR 1.77 Sodium 142 (136-145) mEq/L Potassium 3.9 (3.5-5.1) mEq/L Chloride 107 (98-107) mEq/L Carbon Dioxide 28 (21-32) mEq/L Anion Gap 10.9 (5-15) BUN 25 H (7-18) mg/dL Creatinine 1.2 H (0.55-1.02) mg/dL Est Cr Clr Drug Dosing 36.45 mL/min Estimated GFR (MDRD) 44 (>60) mL/min BUN/Creatinine Ratio 20.8 H (14-18) Glucose 91 (70-99) mg/dL Hemoglobin A1c ( - 5.6) % Calcium 7.7 L (8.5-10.1) mg/dL Magnesium 2.1 (1.8-2.4) mg/dL Total Bilirubin 1.0 (0.2-1.0) mg/dL AST 52 H (15-37) U/L ALT 20 (14-59) U/L Alkaline Phosphatase 51 (46-116) U/L Total Protein 5.7 L (6.4-8.2) g/dl Albumin 2.6 L (3.4-5.0) g/dl Globulin 3.1 gm/dL Albumin/Globulin Ratio 0.8 L (1-2) TSH 3rd Generation (0.358-3.74) uIU/mL Med Orders - Current: Current Medications Acetaminophen (Acetaminophen 325 Mg Tab) 650 mg PO Q4H PRN PRN Reason: Pain (Mild 1-3)/fever Acetaminophen (Acetaminophen 325 Mg Tab) 650 mg PO BID JOSE LUIS Last Admin: 12/08/20 08:15 Dose: 650 mg Documented by: Hydrocodone Bitart/Acetaminophen (Acetaminophen/Hydrocodone 325-5 Mg Tab) 1 tab PO Q6H PRN PRN Reason: Pain (moderate 4-6) Albuterol (Albuterol 6.7 Gm Inhaler) 0 gm INH BID [facility] Last Admin: 12/07/20 20:37 Dose: 2 inhalation Documented by: Albuterol/Ipratropium (Albuterol/Ipratropium 3.0-0.5 Mg/3 Ml Neb Soln) 3 ml NEB QIDRT PRN PRN Reason: Shortness of Breath Aripiprazole (Aripiprazole 5 Mg Tab) 5 mg PO DAILY [facility] Atorvastatin Calcium (Atorvastatin 40 Mg Tab) 40 mg PO BEDTIME [facility] Last Admin: 12/07/20 20:56 Dose: 40 mg Documented by: Baclofen (Baclofen 10 Mg Tab) 10 mg PO BEDTIME [facility] Last Admin: 12/07/20 20:56 Dose: 10 mg Documented by: Calcium Carbonate (Calcium Carbonate/Vitamin D3 600 Mg-200 Units Tab) 1 tab PO DAILY [facility] Last Admin: 12/08/20 08:08 Dose: 1 tab Documented by: Carbidopa/Levodopa (Carbidopa/Levodopa 10-100 Mg Tab) 1 tab PO BID [facility] Last Admin: 12/08/20 08:08 Dose: 1 tab Documented by: Carvedilol (Carvedilol 3.125 Mg Tab) 3.125 mg PO QPM [facility] Last Admin: 12/07/20 17:00 Dose: 3.125 mg Documented by: Cyanocobalamin (Cyanocobalamin (Vitamin B12) 1,000 Mcg Tab) 1,000 mcg PO DAILY [facility] Last Admin: 12/08/20 08:08 Dose: 1,000 mcg Documented by: Dorzolamide HCl (Dorzolamide 2% Ophth Soln 10 Ml Bottle) 0 ml EYEBOTH BID [facility] Last Admin: 12/08/20 08:20 Dose: 1 drop Documented by: Famotidine (Famotidine 20 Mg Tab) 20 mg PO QPM [facility] Last Admin: 12/07/20 17:02 Dose: 20 mg Documented by: Fentanyl (Fentanyl 12 Mcg/Hr Transdermal Patch) 12 mcg TRDERM Q72H [facility] Last Admin: 12/07/20 11:28 Dose: 12 mcg Documented by: Furosemide (Furosemide 40 Mg Tab) 40 mg PO 1200 JOSE LUIS Furosemide (Furosemide 80 Mg Tab) 80 mg PO DAILY [facility] Last Admin: 12/08/20 08:19 Dose: 80 mg Documented by: Isosorbide Mononitrate (Isosorbide Mononitrate 30 Mg Tab.Er) 30 mg PO DAILY [facility] Last Admin: 12/08/20 08:16 Dose: 30 mg Documented by: Latanoprost (Latanoprost 0.005% Ophth Soln 2.5 Ml Bottle) 0 ml EYEBOTH BEDTIME [facility] Last Admin: 12/07/20 20:57 Dose: 1 drop Documented by: Levothyroxine Sodium (Levothyroxine 75 Mcg Tab) 75 mcg PO ACBREAKFAST [facility] Last Admin: 12/08/20 06:11 Dose: 75 mcg Documented by: Magnesium Hydroxide (Magnesium Hydroxide 400 Mg/5 Ml Susp 30 Ml Cup) 30 ml PO Q12H PRN PRN Reason: Constipation Mirtazapine (Mirtazapine 15 Mg Tab) 15 mg PO BEDTIME [facility] Last Admin: 12/07/20 20:56 Dose: 15 mg Documented by: Miscellaneous Information (Remove Old Fentanyl Patch) 0 ea TRDERM Q72H [facility] Morphine Sulfate (Morphine 2 Mg/Ml Syringe) 1 mg IVPUSH Q2H PRN PRN Reason: SEVERE PAIN (7-10) Fluoxetine 40mg Pt's (Own Med) 0 each PO QPM [facility] Last Admin: 12/07/20 17:01 Dose: 40 each Documented by: Ondansetron 8mg Pt's (Own Med) 0 each PO BIDMEALS [facility] Last Admin: 12/08/20 06:11 Dose: 1 each Documented by: Nystatin (Nystatin Topical Powder 15 Gm Bottle) 0 gm TOP BID [facility] Last Admin: 12/08/20 08:23 Dose: 1 applic Documented by: Omeprazole (Omeprazole 20 Mg Cap.Cr) 20 mg PO DAILY [facility] Ondansetron HCl (Ondansetron 4 Mg/2 Ml Sdv) 4 mg IV Q6H PRN PRN Reason: Nausea/Vomiting Polyethylene Glycol (Polyethylene Glycol 3350 Powder 17 Gm Packet) 17 gm PO DAILY [facility] Last Admin: 12/08/20 08:08 Dose: 17 gm Documented by: Potassium Chloride (Potassium Chloride 20 Meq Tab.Er) 20 meq PO DAILY [facility] Pramipexole Dihydrochloride (Pramipexole 0.25 Mg Tab) 0.25 mg PO BEDTIME [facility] Last Admin: 12/07/20 20:56 Dose: 0.25 mg Documented by: Saccharomyces Boulardii (Saccharomyces Boulardii (Probiotic) 250 Mg Cap) 250 mg PO DAILY [facility] Last Admin: 12/08/20 08:08 Dose: 250 mg Documented by: Senna (Sennosides 8.6 Mg Tab) 17.2 mg PO BEDTIME [facility] Last Admin: 12/07/20 20:56 Dose: 17.2 mg Documented by: Sodium Chloride (Sodium Chloride 0.9% 10 Ml Syringe) 10 ml FLUSH ASDIRECTED PRN PRN Reason: Keep Vein Open Last Admin: 12/07/20 08:15 Dose: 10 ml Documented by: Trolamine Salicylate (Trolamine Salicylate/Aloe Vera 10% Crm 85 Gm Tube) 0 gm TOP QID [facility] Last Admin: 12/08/20 08:23 Dose: 85 gm Documented by: Warfarin Sodium (Pharmacy To Dose - Warfarin) 1 dose .XX ASDIRECTED PRN PRN Reason: RX TO DOSE WARFARIN Discontinued Medications Aripiprazole (Aripiprazole 5 Mg Tab) 5 mg PO DAILY [facility] Last Admin: 12/07/20 11:08 Dose: 5 mg Documented by: Docusate Sodium (Docusate Sodium 100 Mg Cap) 100 mg PO BID [facility] Last Admin: 12/07/20 09:59 Dose: 100 mg Documented by: Famotidine (Famotidine 20 Mg Tab) 20 mg PO DAILY [facility] Last Admin: 12/07/20 11:08 Dose: 20 mg Documented by: Sodium Chloride (Normal Saline) 1,000 mls @ 50 mls/hr IV ASDIRECTED [facility] Stop: 12/08/20 06:29 Last Admin: 12/07/20 17:46 Dose: 50 mls/hr Documented by: Miscellaneous Information (Remove Old Fentanyl Patch) 0 ea TRDERM Q72H [facility] Ondansetron HCl (Ondansetron 4 Mg Tab.Dis) 8 mg PO BIDMEALS [facility] Pantoprazole Sodium (Pantoprazole 40 Mg Tab.Cr) Confirm Administered Dose 40 mg .ROUTE .STK-MED ONE Stop: 12/08/20 08:03 Last Admin: 12/08/20 08:20 Dose: 40 mg Documented by: Potassium Chloride (Potassium Chloride 10 Meq Tab.Er) 20 meq PO DAILY [facility] Last Admin: 12/08/20 08:08 Dose: 20 meq Documented by: Warfarin Sodium (Warfarin 4 Mg Tab) 4 mg PO QPM [facility] Stop: 12/07/20 18:01 Last Admin: 12/07/20 17:00 Dose: 4 mg Documented by: - Exam Quality Assessment: Reports: DVT Prophylaxis General: Reports: Alert, Oriented, Cooperative, No Acute Distress HEENT: Reports: Pupils Equal, Pupils Reactive, Mucous Membr. Moist/[place] Neck: Reports: Supple, Trachea Midline Lungs: Reports: Clear to Auscultation, Normal Respiratory Effort Cardiovascular: Reports: Other (Pacemaker present ) GI/Abdominal Exam: Normal Bowel Sounds, Soft, Non-Tender, No Distention (Female) Exam: Deferred Rectal (Female) Exam: Deferred Back Exam: Reports: Normal Inspection, Full Range of Motion Extremities: Leg Pain (left hip and leg ), Limited Range of Motion (2/2 pain), Other (left leg appears slighlty shorter than right ) Skin: Reports: Warm, Dry, Intact Neurological: Reports: No New Focal Deficit Psy/Mental Status: Reports: Alert. Denies: Normal Affect (flat )
[2020-12-08] MEDS: Albuterol 6.7 GM Inhaler INH SCH (09:17)
[2020-12-08] MEDS ORDERED: Furosemide 40 MG Tab PO SCH (12:00)
[2020-12-08] MEDS ORDERED: Warfarin 4 MG Tab PO SCH (18:00)
== END 2020-12-08 14:15 ==
LOC: SUPCPDRO 22:58 → JD.ED 22:58 → INTOOBSV 12-07 08:14 → JD.MS 12-07 08:14
PROVIDERS: ADMIT Internal Medicine; ATTEND Internal Medicine
DX: S32.592A Other specified fracture of left pubis, initial encounter for closed fracture (principal); S32.512A Fracture of superior rim of left pubis, initial encounter for closed fracture; I48.91 Unspecified atrial fibrillation; I25.10 Atherosclerotic heart disease of native coronary artery without angina pectoris; E78.5 Hyperlipidemia, unspecified; I50.9 Heart failure, unspecified; E11.9 Type 2 diabetes mellitus without complications; E03.9 Hypothyroidism, unspecified; E66.9 Obesity, unspecified; K21.9 Gastro-esophageal reflux disease without esophagitis; E78.00 Pure hypercholesterolemia, unspecified; G47.33 Obstructive sleep apnea (adult) (pediatric); M81.0 Age-related osteoporosis without current pathological fracture; M54.5 Low back pain; R13.10 Dysphagia, unspecified; Z20.822 Contact with and (suspected) exposure to COVID-19; Z79.01 Long term (current) use of anticoagulants; Z95.0 Presence of cardiac pacemaker; Z88.8 Allergy status to other drugs, medicaments and biological substances; Z88.5 Allergy status to narcotic agent; Z79.899 Other long term (current) drug therapy; Z79.890 Hormone replacement therapy; W19.XXXA Unspecified fall, initial encounter
CPT/HCPCS: 36415; 70450; 72192; 73502; 80053; 83036; 83735; 84443; 85025; 85610; 94640; 94760; 97110; 97116; 97162; 97167; 97530; 97535; 99285; A9270; G0378; J7030; U0002; 99217; 99220; 99284

== ENCOUNTER 2023-08-04 22:17 | Emergency (ER) | payer OTHER, MEDICARE ==
[2023-08-04] MEDS: 50% Dextrose in Water 50 ML Syringe ONE (22:33)
[2023-08-04] MEDS: 50% Dextrose in Water 50 ML Syringe IVPUSH PRN (22:34)
[2023-08-04] MEDS: Sodium Chloride 0.9% 1,000 ML ONE (22:35)
[2023-08-04] MEDS: Sodium Chloride 0.9% 1,000 ML IV ONE (22:35)
[2023-08-04 22:53] LABS: BASOPHILS PERCENT AUTO 0.4 % (0.0-1.0); HEMATOCRIT 38.9 % (37.0-47.0); HEMOGLOBIN 11.2 gm/dl (12.0-16.0); IMMATURE GRAN ABSOLUTE AUTO 0.13 K/mm3 (0.00-0.05); IMMATURE GRAN PERCENT AUTO 1.9 % (0.0-0.4); LYMPHOCYTES ABSOLUTE AUTO 0.8 K/mm3 (1.0-4.8); LYMPHOCYTES PERCENT AUTO 11.8 % (24.0-44.0); MEAN CORPUSCULAR HEMOGLOBIN 32.5 pg (28.0-32.0); MEAN CORPUSCULAR HGB CONC 28.8 g/dl (32.0-36.0); MEAN CORPUSCULAR VOLUME 112.8 fl (83.0-99.0); MEAN PLATELET VOLUME 10.4 fl (9.4-12.3); MONOCYTES ABSOLUTE AUTO 0.3 K/mm3 (0.0-0.8); MONOCYTES PERCENT AUTO 4.7 % (0.0-8.0); NEUTROPHILS ABSOLUTE AUTO 5.7 K/mm3 (1.8-7.7); NEUTROPHILS PERCENT AUTO 81.2 % (41.0-71.0); NRBC ABSOLUTE 0.09 (0.00-0.02); NRBC PERCENT 1.3 % (0.0-0.2); PLATELET COUNT,PLT 179 K/mm3 (150-400); RED BLOOD CELL COUNT 3.45 M/mm3 (4.10-5.30); WHITE BLOOD CELL COUNT,WBC 6.96 K/mm3 (3.9-11.3)
[2023-08-04 23:02] LABS: A/G RATIO 0.8 (1-2); ALBUMIN 2.7 g/dl (3.4-5.0); ANION GAP 35.1 (5-15); BILIRUBIN TOTAL 0.6 mg/dL (0.2-1.0); BUN/CREATININE RATIO 11.6 (14-18); CALCIUM 8.4 mg/dL (8.5-10.1); EST CRCL DRUG DOSING (CG) 7.67 mL/min; MAGNESIUM 2.1 mg/dL (1.8-2.4); PROTEIN TOTAL,TP 6.1 g/dl (6.4-8.2)
[2023-08-04 23:03] LABS: POTASSIUM,K 6.1 mEq/L (3.5-5.1)
[2023-08-04 23:39] LABS: SLIDE REVIEW ABNORMAL SMEAR
[2023-08-05 00:09] LABS: APPEARANCE,URINE CLOUDY (Clear); BILIRUBIN,URINE 1+ (Negative); COLOR,URINE YELLOW (Yellow); GLUCOSE,URINE NEGATIVE (Negative); KETONES,URINE TRACE (Negative); LEUKOCYTE ESTERASE,URINE 3+ (Negative); NITRITE,URINE NEGATIVE (Negative); OCCULT BLOOD,URINE 2+ (Negative); PROTEIN,URINE 3+ (Negative); UROBILINOGEN,URINE 0.2 (0.2-1.0)
[2023-08-05 00:18] LABS: BACTERIA,URINE MANY /hpf (FEW); MUCUS,URINE NOT SEEN /hpf (FEW); SQUAMOUS EPITHELIAL CELLS,UR 0-5 /hpf (0-5); WBC,URINE TOO NUMEROUS TO CNT /hpf (0-5)
[2023-08-05] MEDS: Norepinephrine 4 MG in Dextrose 5% in Water 246 ML IV SCH (00:30)
[2023-08-05] MEDS: Levofloxacin/Dextrose 5%-Water 250 MG in Premix Bag 1 BAG IV ONE (00:48)
[2023-08-05] MEDS: Glucagon,Human Recombinant 1 MG Vial IVPUSH ONE (02:00)
[2023-08-05 02:02] LABS: LACTIC ACID 12.8 mmol/L (0.4-2.0)
[2023-08-05 02:49] VITALS: BP 91/47
[2023-08-05 03:41] VITALS: PULSE 71
== END 2023-08-05 02:16 ==
LOC: JD.ED 22:17
DX: N17.9 Acute kidney failure, unspecified (principal); I95.9 Hypotension, unspecified; K21.9 Gastro-esophageal reflux disease without esophagitis; I25.10 Atherosclerotic heart disease of native coronary artery without angina pectoris; E78.00 Pure hypercholesterolemia, unspecified; E66.9 Obesity, unspecified; E11.9 Type 2 diabetes mellitus without complications; E03.9 Hypothyroidism, unspecified; Z68.24 Body mass index [BMI] 24.0-24.9, adult; Z88.5 Allergy status to narcotic agent; Z88.8 Allergy status to other drugs, medicaments and biological substances; Z79.899 Other long term (current) drug therapy; Z79.01 Long term (current) use of anticoagulants
CPT/HCPCS: 36415; 71045; 74176; 80053; 81001; 82947; 83605; 83735; 85025; 87040; 93005; 96361; 96365; 96366; 96375; 99285; J1956; J7030; J7060; J3490